=== PATIENT | male | born 1940 | race Caucasian/White ===

== ENCOUNTER → 2018-08-02 12:29 | Outpatient (CLI) | payer MEDICARE, OTHER, SELFPAY | PROVIDERS: Family Provider Family Medicine; PCP Family Medicine; Referring Provider Family Medicine; Visit Provider Family Medicine | DX: R55 Syncope and collapse (principal) | CPT/HCPCS: 93225; 93226 ==

== ENCOUNTER → 2018-08-14 13:52 | Outpatient (CLI) | payer MEDICARE, OTHER, SELFPAY ==
--- NOTE | 2018-08-14 13:54 | ECHOD_ITS ---
Reason For Study: syncope Procedure This was a 2D Doppler, Color Flow transthoracic echocardiogram. The exam was of adequate technical quality. Exam performed in department. Left Ventricle Normal LV size. Left ventricular systolic function is normal. The estimated ejection fraction is 65 %. No regional wall motion abnormalities noted. Right Ventricle Normal RV size. Normal systolic function. Atria Normal left atrium. Normal right atrium. No doppler evidence for ASD. Mitral Valve There is no mitral annular calcification. Normal mitral valve. Mild (1+) mitral valve insufficiency. Tricuspid Valve Normal tricuspid valve. Trivial tricuspid valve insufficiency. Right ventricular systolic pressure estimated to be 23 mmHg. Aortic Valve Trisinus/trileaflet aortic valve. Normal aortic valve. Pulmonic Valve The pulmonic valve is not well visualized. Trivial pulmonic valve insufficiency. Great Vessels Normal sized aortic root. Pericardium/Pleural No pericardial effusion. MMode/2D Measurements & Calculations LVIDd: 5.2 cm IVSd: 1.2 cm Ao root diam: 3.0 cm LVIDs: 3.0 cm LVPWd: 0.95 cm RVDd: 3.0 cm FS: 43.1 % LAV(MOD-bp): 38.3 ml LA A4 area: 14.1 cm2 LA dimension(2D): 4.1 cm LAV(MOD-bp) Indexed: 18.0 ml/m2 LAV(MOD-sp2): 41.4 ml LAV(MOD-sp4): 34.5 ml RA A4 area: 8.5 cm2 Doppler Measurements & Calculations MV E max florin: 87.2 cm/sec Lat Peak E' Florin: 7.2 cm/sec Med Peak E' Florin: 8.6 cm/sec MV A max florin: 68.9 cm/sec E/E' lat: 12.2 E/E' med: 10.1 MV E/A: 1.3 Ao V2 max: 151.6 cm/sec LV V1 max: 135.8 cm/sec TR max florin: 225.0 cm/sec Ao max P.2 mmHg LV V1 max P.4 mmHg TR max P.2 mmHg Interpretation Summary Left ventricular systolic function is normal. The estimated ejection fraction is 65 %. Mild (1+) mitral valve insufficiency. Trivial tricuspid valve insufficiency. Trivial pulmonic valve insufficiency. Right ventricular systolic pressure estimated to be 23 mmHg. Transmitral diastolic flow velocities suggest diastolic dysfunction (pseudonormal pattern). Ordering Physician: Yash Mahoney Referring Physician: Yash Mahoney Performed By: Caro Holcomb, RDCS, RVT
== END ==
PROVIDERS: Family Provider Family Medicine; PCP Family Medicine; Referring Provider Family Medicine; Visit Provider Family Medicine
DX: R55 Syncope and collapse (principal)
CPT/HCPCS: 93306

== ENCOUNTER → 2019-02-28 10:56 | Outpatient (CLI) | payer MEDICARE, OTHER, SELFPAY ==
[2019-02-28 11:55] LABS: T3 Total - Triiodothyronine 0.89 ng/mL (0.6-1.81)
[2019-02-28 11:58] LABS: T4 Total, Thyroxin 7.7 ug/dL (4.5-12.1)
== END ==
PROVIDERS: Family Provider Family Medicine; PCP Family Medicine; Referring Provider Family Medicine; Visit Provider Family Medicine
DX: E03.9 Hypothyroidism, unspecified (principal)
CPT/HCPCS: 36415; 84436; 84480

== ENCOUNTER → 2019-04-29 08:45 | Outpatient (CLI) | payer MEDICARE, OTHER, SELFPAY ==
[2019-04-25 10:52] VITALS: BMI 27.8
== END ==
PROVIDERS: Family Provider Family Medicine; PCP Family Medicine; Referring Provider Internal Medicine Cardiovascular Disease; Visit Provider Internal Medicine Cardiovascular Disease
DX: I48.0 Paroxysmal atrial fibrillation (principal); I49.8 Other specified cardiac arrhythmias
CPT/HCPCS: 93225; 93226

== ENCOUNTER → 2019-08-09 12:00 | Outpatient (CLI) | payer SELFPAY ==
[2019-07-31 10:49] VITALS: BMI 28.0
--- NOTE | 2019-08-09 12:07 | CT_ITS ---
STUDY: CARDIAC CALCIUM SCORING - CT CHEST REASON FOR EXAM: Male, 79 years old. CALCIUM SCORE-OVER READ ONLY RADIATION DOSAGE (If Supplied By Facility): CTDIvol = ( 12.19 ) mGy, DLP = ( 219.42 ) mGycm TECHNIQUE: Axial non-enhanced images were acquired through the heart for the sole purpose of measuring coronary artery calcium. Individualized dose optimization techniques were used for this CT. COMPARISON: None. FINDINGS: Please see the patient''s medical record for a personalized calcium score. The visualized soft tissues are within normal limits. The visualized lung monge are clear. CT/Limited Chest CT w/CCTA IMPRESSION: Please see the patient''s medical record for a personalized calcium score. Please go to: [email or web address] , for a description of the calculator. Electronically Signed: Jordon Escobar, at 14:03 EDT Tel , Service support ,
[2019-08-09 12:10] VITALS: BP 148/87; PULSE 82; RESP 16; O2SAT 96
[2019-08-09 12:44] VITALS: BP 124/60; PULSE 70; RESP 16; O2SAT 95; BMI 27.8
--- NOTE | 2019-08-09 15:59 | CA.SCORE ---
Calcium Scoring Date of Study:: 08/09/19 Coronary Calcium Scoring: High-resolution Computed Tomographic imaging of the chest was performed on [ ], with particular attention paid to the coronary arteries. Images from the examination were analyzed for the presence and extent of coronary artery calcification , using coronary calcium quantification software. The patient tolerated the procedure well and there were no complications. The results of the coronary calcification analysis are provided below. - Findings Left Main (LM): 118 Left Anterior Descending (LAD): 184 Left Circumflex (LCX): 112 Right Coronary Artery (RCA): 0 Total Agatston Score: 414 Percentile Rankin--50 Calcium Scoring Interpretation: 0 No identifiable atherosclerotic plaque. Very low cardiovascular disease risk. <5% chance of presence coronary artery disease A Negative Examination 1-10 Minimal Plaque burden. Significant coronary artery disease very unlikely. 11-100 Mild plaque burden. Likely mild or minimal coronary atherosclerosis. 101-400 Moderate plaque burden Moderate non-obstructive coronary artery disease highly likely. Over 400 Extensive plaque burden. High likelihood of at least one significant coronary stenosis (>50% diameter) Calcium Score: >400 High likelihood of at least one significant coronary stenosis - The above is suggestive of a high likelihood of at least 1 coronary artery with 50% stenosis. Other risk factors should be taking into consideration
== END ==
PROVIDERS: PCP Family Medicine; Referring Provider Internal Medicine Cardiovascular Disease; Visit Provider Internal Medicine Cardiovascular Disease
DX: I10 Essential (primary) hypertension (principal); E78.2 Mixed hyperlipidemia
CPT/HCPCS: 75571; 76380

== ENCOUNTER → 2019-08-12 12:16 | Outpatient (CLI) | payer MEDICARE, OTHER, SELFPAY ==
[2019-07-31 10:49] VITALS: BMI 28.0
[2019-08-09 12:44] VITALS: BMI 27.8
--- NOTE | 2019-08-12 12:17 | CDU_ITS ---
Reason For Study: Vertigo Rt. Velocities/BP Lt. Velocities/BP Prox CCA 118/24 cm/sec. Prox CCA 131/25 cm/sec. Mid CCA 96/27 cm/sec. Mid CCA 99/21 cm/sec. Dist CCA 88/23 cm/sec. Dist CCA 80/27 cm/sec. Prox ICA 47/10 cm/sec. Prox ICA 102/26 cm/sec. Mid ICA 47/17 cm/sec. Mid ICA 73/25 cm/sec. Dist ICA 79/31 cm/sec. Dist ICA 59/22 cm/sec. Rt. ICA/CCA = 0.8. Lt. ICA/CCA = 1.0. Prox ECA 94/10 cm/sec. Prox ECA 75/8 cm/sec. Rt. Vert. 33/12 cm/sec. Lt. Vert. 49/17 cm/sec. Right Extracranial There is intimal thickening but no significant atherosclerotic plaque noted in the right common carotid artery. There is heterogeneous, smooth atherosclerotic plaque noted in the right internal carotid artery. There is intimal thickening but no significant atherosclerotic plaque noted in the right external carotid artery. Antegrade flow is noted in the right vertebral artery. Left Extracranial There is intimal thickening but no significant atherosclerotic plaque noted in the left common carotid artery. There is heterogeneous, smooth atherosclerotic plaque noted in the left internal carotid artery. There is heterogeneous, irregular atherosclerotic plaque noted in the left external carotid artery. Antegrade flow is noted in the left vertebral artery. Procedure Carotid Duplex [id number]. Exam performed in department. Interpretation Summary No hemodynamically significant plaque or stenosis right extracranial internal carotid with less than 50% stenosis <50% stenosis right external carotid Minimal plaque at the proximal left internal carotid with less than 50% stenosis. <50% stenosis left external carotid Patent, antegrade vertebrals bilaterally Ordering Physician: Eugene Monson Referring Physician: Yash Mahoney Performed By: Viviane Loco, ISAIAS, RVT
--- NOTE | 2019-08-12 12:17 | STEWCON_ITS ---
Reason For Study: Chest Pain; Syncope; HTN Stress Results Protocol: Bull Protocol WITH DEFINITY Maximum Predicted HR: 141 bpm Target HR: 120 bpm % Maximum Predicted HR: 96 % DurationHeart Rate Stage (mm:ss) (bpm) BP Comment Baseline 64 138/76No Chest Pain; 4 ML Diluted Definity Bull Protocol Stage I 3:00 120 156/70No Chest Pain Bull Protocol Stage II 3:00 131 164/72No Chest Pain; Mild Dyspnea Bull Protocol Stage III 0:30 136 / No Chest Pain; Mild Dyspnea Recovery 80 128/80No Chest Pain Stress Duration: 6:30 mm:ss Maximum Stress HR: 136 bpm METS: 8 Baseline Echocardiogram Findings Stress Echo Wall motion Data Resting WM Intermediate WM Stress WM Interpretation Summary Stress echo Resting EKG demonstrates normal sinus rhythm with a rate of 63 bpm normal intervals are noted resting blood pressure is 138/76 mmHg. The patient exercised according to regular Bull protocol for a total duration of 6 minutes and 30 seconds. The maximum heart rate attained was 137 bpm which was 97% of maximum predicted heart rate the maximum workload was 8.5 metabolic equivalents. At rest there were no ST or T wave changes noted to suggest ischemia at peak exercise upsloping ST changes only were noted with no meet the criteria for ischemia. The test was terminated due to the target heart rate being achieved. No clinical angina was noted. The resting blood pressure was 138/76 with a peak blood pressure 164/72. Stress echocardiogram. Stress echocardiographic images were obtained with and without Definity enhancement. There was thickening of all ayala and reduction in low ventricular cavity size. The ejection fraction at rest was 60% peaking at 70%. No wall motion abnormalities were noted to suggest ischemia. Conclusion: Normal exercise stress echo at a high workload Good functional capacity. No arrhythmias noted. Ordering Physician: Eugene Monson Referring Physician: Yash Mahoney Performed By: Norah Mckinney RDCS
== END ==
PROVIDERS: PCP Family Medicine; Referring Provider Internal Medicine Cardiovascular Disease; Visit Provider Internal Medicine Cardiovascular Disease
DX: R07.9 Chest pain, unspecified (principal); I10 Essential (primary) hypertension; R55 Syncope and collapse
CPT/HCPCS: 93017; 93350; 93880; Q9957; A4216; C8928

== ENCOUNTER → 2020-01-20 14:04 | Outpatient (CLI) | payer MEDICARE, OTHER, SELFPAY ==
[2019-08-09 12:44] VITALS: BMI 27.8
[2020-01-20 15:44] LABS: T3 Total - Triiodothyronine 1.24 ng/mL (0.6-1.81)
[2020-01-20 15:51] LABS: T4 Total, Thyroxin 10.5 ug/dL (4.5-12.1)
== END ==
PROVIDERS: PCP Family Medicine; Visit Provider Family Medicine
DX: E03.9 Hypothyroidism, unspecified (principal)
CPT/HCPCS: 36415; 84436; 84443; 84480

== ENCOUNTER → 2020-03-16 11:36 | Outpatient (CLI) | payer MEDICARE, OTHER, SELFPAY ==
[2020-02-06 08:06] VITALS: BMI 29.1
--- NOTE | 2020-03-16 | IMM_PTH ---
PATIENT: NICOLLE KWOK LOC: [facility] U#:[id number] AGE/SX: 84/M ROOM: RE03/16/[address]: Dr. Rob Terry MD : 1940 BED: DIS: SPEC #: [id number] RECD: 03/17/20 13:27 STATUS: BENJAMIN REKehinde #: [id number] QUETA: 03/16/20 00:[address]: Rob Terry DEPT: IMMUNOHISTOCHEMISTRY RECD BY: Martina Albert ENTERED: 03/17/20 13:29 SP TYPE: IMMUNO OTHR DR: Dr. Yash Mahoney DO Tissues: B - PROSTATE RIGHT D - PROSTATE LEFT E - PROSTATE LEFT Procedures: 34BE12 (add) P40 (add) 34BE12 (initial) PHYSICIAN & INSTITUTION [place] [id number] SPECIMEN INFORMATION: Tissue Source: B - Right prostate, mid, core biopsy, D - Left prostate, apex, E - Left prostate, mid Clinical Info: Elevated PSA Specimen Number: [id number] B, D & E CPT code: 00506, 81124 x5 METHODOLOGY: Deparaffinized sections of prefer/formalin-fixed tissue or PAP/DQ stained slides are incubated with monoclonal/polyclonal antibodies/oligonucleotide probes. Localization is made via biotin free immunoperoxidase method. Appropriate controls are performed and reacted as expected. Results on target cell population are indicated in the following table: RESULTS: ANTIBODY / CLONE RESULT Block B 34BE12 (34BE12) negative P40 (BC28) negative Block D 34BE12 (34BE12) negative P40 (BC28) negative Block E 34BE12 (34BE12) negative P40 (BC28) negative These tests were developed and their performance characteristics determined by [facility]. They may not have been cleared or approved by the U.S. Food and Drug Administration. The FDA has determined that such clearance or approval is not necessary. The above immunohistochemical/dualISH markers are ordered and reviewed by the Pathologist. INTERPRETATION: B. Right prostate, mid, core biopsy: Adenocarcinoma. D. Left prostate, apex, core biopsy: Adenocarcinoma. E. Left prostate, mid, core biopsy: Adenocarcinoma. AM:sandra 03/18/20
--- NOTE | 2020-03-16 08:00 | PROSBIL_PTH ---
PATIENT: NICOLLE KWOK LOC: [facility] U#:[id number] AGE/SX: 84/M ROOM: RE03/16/[address]: Dr. Rob Terry MD : 1940 BED: DIS: SPEC #: [id number] RECD: 03/16/20 11:11 STATUS: BENJAMIN PATRICIA #: [id number] QUETA: 03/16/20 08:[address]: Rob Terry DEPT: SURGICAL PATHOLOGY RECD BY: Liborio Kapoor ENTERED: 03/16/20 11:47 SP TYPE: PROST BX ALANIS DR: Dr. Yash Mahoney DO Tissues: A - PROSTATE RIGHT B - PROSTATE RIGHT C - PROSTATE RIGHT D - PROSTATE LEFT E - PROSTATE LEFT F - PROSTATE LEFT Procedures: PROSTATE BX HEADER OPERATION: Prostate biopsy PRE-OP DIAGNOSIS: Elevated PSA TISSUE SUBMITTED: A - Right apex, B - Right mid, C - Right base, D - Left apex, E - Left mid, F - Left base MICROSCOPIC DIAGNOSIS A. Right prostate, apex, core biopsy: Adenocarcinoma. [place] grade: 6 (3+3) Cores involved: 2 out of 2 Tissue involved: 45% Greatest tumor length: 4.5mm B. Right prostate, mid, core biopsy: Adenocarcinoma. Tori grade: 6 (3+3) Cores involved: 1 out of 2 Tissue involved: <1% Greatest tumor length: 0.1 mm Perineural invasion: Present See comment. C. Right prostate, base, core biopsy: Adenocarcinoma. Tori grade: 7 (3+4) Cores involved: 2 out of 2 Tissue involved: 25% Greatest tumor length: 2 mm D. Left prostate, apex, core biopsy: Adenocarcinoma. [place] grade: 6 (3+3) Cores involved: 1 out of 1 Tissue involved: <1% Greatest tumor length: 0.2 mm See comment. E. Left prostate, mid, core biopsy: Adenocarcinoma. [place] grade: 6 (3+3) Cores involved: 1 out of 2 Tissue involved: <1% Greatest tumor length: 0.2 mm See comment. F. Left prostate, base, core biopsy: Adenocarcinoma. [place] grade: 8 (5+3) Cores involved: 2 out of 2 Tissue involved: 40% Greatest tumor length: 2 mm AM:sandra 03/17/20 COMMENT B, D & E - Immunohistochemistry ([id number]) supports the above diagnosis. Case has been reviewed in consultation with Dr. Hernandez who concurs with the above diagnosis. IDC:SJ MICROSCOPIC DESCRIPTION Slides are reviewed. GROSS DESCRIPTION A - Received is one container designated prostate, right apex. The specimen consists of two elongated fragments of light rachel-white soft tissue each measuring 0.5 cm in length and 0.1 cm in diameter. The specimen is totally submitted in one cassette. B - Received is one container designated prostate, right mid. The specimen consists of three elongated fragments of light rachel-white soft tissue measuring 0.3 to 1.5 cm in length and 0.1 cm in diameter. The specimen is totally submitted in one cassette. C - Received is one container designated prostate, right base. The specimen consists of two elongated fragments of light rachel-white soft tissue measuring 0.7 and 0.9 cm in length and 0.1 cm in diameter. The specimen is totally submitted in one cassette. D - Received is one container designated prostate, left apex. The specimen consists of one elongated fragment of light rachel-white soft tissue measuring 0.6 cm in length and 0.1 cm in diameter. The specimen is totally submitted in one cassette. E - Received is one container designated prostate, left mid. The specimen consists of two elongated fragments of light rachel-white soft tissue each measuring 0.3 cm in length and 0.1 cm in diameter. The specimen is totally submitted in one cassette. F - Received is one container designated prostate, left base. The specimen consists of two elongated fragments of light rachel-white soft tissue each measuring 0.5 cm in length and 0.1 cm in diameter. The specimen is totally submitted in one cassette. / JAQUELINE:sandra 03/16/20 TC:0 CPT: G0146
== END ==
PROVIDERS: PCP Family Medicine; Visit Provider Urology
DX: C61 Malignant neoplasm of prostate (principal); R97.20 Elevated prostate specific antigen [PSA]
CPT/HCPCS: 88305; 88341; 88342; G0416

== ENCOUNTER → 2020-04-06 08:53 | Outpatient (CLI) | payer MEDICARE, OTHER, SELFPAY ==
[2020-02-06 08:06] VITALS: BMI 29.1
--- NOTE | 2020-04-06 08:55 | NM_ITS ---
CLINICAL: 79-year-old male with apparent history of primary prostate carcinoma. WHOLE BODY 99m Tc MDP RADIONUCLIDE BONE SCINTIGRAPHY COMPARISON: None available FINDINGS: Following the intravenous administration of 26.0 mCi of 99m Tc MDP, whole body bone images reveal: 1. An increase in radiopharmaceutical concentration is identified in the left mid, distal humeral diaphysis and distal left humeral metaphysis. 2. Increased tracer concentration is defined in the acromioclavicular compartments of both shoulders, lateral femoral compartments of both knees, medial tibial compartment of the right knee, bilateral wrist articulations, the right ankle, first sacral segment posteriorly on the right, posterior midline sacrum. 3. The remaining skeletal structures are scintigraphically unremarkable with normal-appearing renal images and urinary bladder activity identified. An asymmetric increase in tracer concentration is defined in the right maxilla most consistent with periodontal disease. NM/Bone Scan Whole Body IMPRESSION: 1. The increase in radiopharmaceutical concentration demonstrated in the left mid and distal humeral diaphysis and distal left humeral metaphysis warrants further investigation with plain film radiography in the setting of carcinoma of the prostate. 2. 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 Electronically Signed: Gerardo Richardson DO at 22:42 EST Tel , Service support ,
== END ==
PROVIDERS: PCP Family Medicine; Referring Provider Urology; Visit Provider Urology
DX: C61 Malignant neoplasm of prostate (principal)
CPT/HCPCS: 78306

== ENCOUNTER 2020-04-08 06:19 | Day surgery (SDC) | payer MEDICARE, OTHER, SELFPAY ==
[2020-02-06 08:06] VITALS: BMI 29.1
[2020-04-08 06:51] VITALS: BP 127/76; PULSE 72; RESP 16; TEMP 36.4; O2SAT 97; BMI 29.2
[2020-04-08] MEDS: Cefazolin 2 GM in 0.9% Normal Saline 100 ML IV (08:22)
--- NOTE | 2020-04-08 08:37 | PCM.HP.STD ---
History of Present Illness Date of Admission: 04/08/20 Chief Complaint: Prostate cancer The patient is a 79 year old male with a history of prostate cancer he is elected to undergo radiation therapy today we can place gold markers in the prostate and spacer organ at risk gel matrix Past Medical History Past Medical History (Chronic Problems): Chronic Problems (Last Reviewed 04/25/19 @ 11:[address] Eugene Monson MD) Hyperlipemia, mixed (Chronic) Essential (primary) hypertension (Chronic) Syncope (Chronic 03/2019) Sinus pause (Chronic) Bradyarrhythmia (Chronic) Non-sustained ventricular tachycardia (Chronic) Paroxysmal atrial fibrillation (Chronic) Medical History: Medical History (Last Reviewed 04/25/19 @ 11:[address] Eugene Monson MD) Hyperlipemia, mixed (Chronic) E78.2 Essential (primary) hypertension (Chronic) I10 Syncope (Chronic) Onset Date: 03/2019 R55 Sinus pause (Chronic) I45.5 Bradyarrhythmia (Chronic) I49.8 Non-sustained ventricular tachycardia (Chronic) I47.2 Paroxysmal atrial fibrillation (Chronic) I48.0 BPH (benign prostatic hyperplasia) N40.0 Basal cell carcinoma C44.91 Dupuytren contracture M72.0 GERD (gastroesophageal reflux disease) K21.9 Hypothyroidism E03.9 Epistaxis R04.0 xarelto Allergies cephalexin Adverse Reaction (Verified 04/08/20 06:50) diarrhea niacin Adverse Reaction (Verified 04/08/20 06:50) PT UNSURE OF REACTION sore muscles Home Medications: Ambulatory Orders Medication Instructions Recorded levothyroxine 75 mcg capsule 100 mcg PO DAILY 04/24/19 simvastatin 20 mg tablet 20 mg PO QHS 04/24/19 omeprazole 20 mg capsule,delayed 40 mg PO DAILY 04/25/19 release Apixaban [Eliquis] 5 mg PO BID 04/02/20 Hydrochlorothiazide [Hctz] 25 mg PO DAILY 04/02/20 Lisinopril 20 mg PO DAILY 04/02/20 Surgical History: Surgical History (Last Reviewed 04/25/19 @ 11:[address] Eugene Monson MD) H/O blepharoplasty Z98.890 H/O hemorrhoidectomy Z98.890 H/O knee surgery Z98.890 H/O umbilical hernia repair Z98.890, Z87.19 History of cataract surgery Z98.49 History of cholecystectomy Z90.49 History of ventral hernia repair Z98.890, Z87.19 S/P cystourethroscopy with dilation of urethral stricture Z98.890 Surgical History: no surgical history Smoking Status: Former smoker Review of Systems Constitutional: Denies: Chills, Fever, Weight Change HEENT: Denies: Head Aches, Sinus Congestion, Sinus Drainage Cardiovascular: Denies: Chest Pain, Palpitations Respiratory: Denies: Cough, Shortness of breath at rest, Sputum production Gastrointestinal: Denies: Abdominal Pain, Nausea, Vomiting Genitourinary: Denies: Dysuria Musculoskeletal: Denies: Joint Pain, Joint Tenderness Skin: Denies: Rash, Wounds Neurological: Denies: Numbness, Tingling, Focal weakness Psychiatric: Denies: Anxiety, Depression, Homicidal Ideations, Suicidal Ideations Hematologic/ Lymphatic: Denies: Easy Bruising, Easy Bleeding VTE Information - Inpt Only VTE Present on Admission: No - Physical Exam Vitals/I&O's: Vital Signs Temp Pulse Resp BP Pulse Ox 97.6 F L 72 16 127/76 H 97 04/08/20 06:51 04/08/20 06:51 04/08/20 06:51 04/08/20 06:51 04/08/20 06:51 Oxygen Delivery Method Room Air Weight: 94.9 kg Body Mass Index (BMI) 29.2 Intake and Output for Last 24 Hours 04/06/20 04/07/20 04/08/20 23:59 23:59 23:59 Intake Total 110 / 110 Balance 110 / 110 General: Alert, Oriented x3, Cooperative HEENT: Atraumatic, PERRLA, EOMI, Normocephalic Neck: Supple, No JVD, Negative Carotid Bruits Lungs: Clear to auscultation, Normal air movement Cardiovascular: Regular rate, No murmurs Abdomen: Bowel Sounds Present, Soft, Non Tender Extremities: No edema, Capillary Refill Less than 3 Seconds Skin: No rashes, No breakdown Musculoskeletal: No Tenderness to Palpation of Joints or Extremities Neurological: Cranial nerves II-XII grossly intact Psych/Mental Status: Normal Affect, Appropriate Microbiology Past 72 Hours 04/07/20 15:20 Interface Orders SARS-CoV-2 Antigen (Rapid) - Final Current Medications Cefazolin Sodium 2 gm/ Sodium (Chloride) 110 mls @ 150 mls/hr IV PREOP ONE Stop: 04/08/20 11:53 Last Infusion: 04/08/20 08:27 Dose: Infused Documented by: Assessment/Plan Plan to place spacer organ at risk gel matrix and gold markers
--- NOTE | 2020-04-08 08:39 | DCINST_ITS ---
Discharge Diet: No Restrictions Discharge Activity: Return to Normal Activity, May Not Drive - for 2 days. Allergies/Adverse Reactions: Allergies cephalexin Adverse Reaction (Verified 04/08/20 06:50) diarrhea niacin Adverse Reaction (Verified 04/08/20 06:50) PT UNSURE OF REACTION sore muscles Medications to take at Discharge levothyroxine 75 mcg capsule 100 mcg PO DAILY 04/24/19 simvastatin 20 mg tablet 20 mg PO QHS 04/24/19 omeprazole 20 mg capsule,delayed release 40 mg PO DAILY 04/25/19 Apixaban [Eliquis] 5 mg PO BID 04/02/20 Hydrochlorothiazide [Hctz] 25 mg PO DAILY 04/02/20 Lisinopril 20 mg PO DAILY 04/02/20 Primary Care Physician: Yash Mahoney DO [Primary Care Provider] - Test Results: Test results from this visit will be discussed in further detail at your follow- up appointment, if applicable. Please Follow Up With: Rob Terry MD When: please call to make an appointment-for hormone therapy shot
--- NOTE | 2020-04-08 08:40 | PCM.OPRPT ---
Report of Operation Date of Procedure: 04/08/20 Pre-Operative Diagnosis: Prostate cancer Post-Operative Diagnosis: Same Surgery/Procedure Performed:: Transrectal ultrasound-guided placement of gold fiducial markers and transrectal ultrasound-guided placement of spacer organ at risk gel matrix Description of Surgical Findings:: The gentleman has prostate cancer is elected undergo radiation treatment. He has high-grade cancer. He is going start hormone therapy. Were also going put gold markers in the prostate for localization of radiation treatment and we can place a spacer gel to separate the rectum off the prostate. Patient was taken back to the operating room at the smooth induction of general anesthesia he was placed in dorsolithotomy position the urethra testicles and perineum were prepped and draped in usual sterile fashion. I then introduced a biplanar probe into the prostate and rectum performed ultrasonography of the prostate identified the prostate the rectum the Denonvilliers' fascia the prostate base mid and apex and seminal vesicles. After performing ultrasonography of the prostate I then introduced gold fiducial markers in the prostate placed 3 gold fiducial markers in [address] in the prostate at the right base left base and right apex. Then the spacer organ at risk gel matrix were prepared in the back table per power house control room operator's instructions. Then using bevel needle down I advanced the needle in the midline below the prostate and above the rectum once I entered the space of Denonvilliers' fascia I then hydrodissected the space with normal saline injectable. Once the space was identified and confirmed then I injected the gel matrix into the space to separate the rectum off the prostate the very nicely. The needle was removed the patient perineum was cleaned taken out of stirrups extubated taken back to PACU in good condition and he will follow up in the office for treatment with hormone therapy shots. Type of Anesthesia:: General - Admit VTE Documentation VTE Present on Admission: No VTE Mechan Device Prophylaxis: SCD's
[2020-04-08 08:47] VITALS: BP 115/70; BP 127/76; PULSE 68; RESP 16; TEMP 36.1; O2SAT 94
[2020-04-08 08:59] VITALS: BP 110/70; BP 127/76; PULSE 68; RESP 16; O2SAT 96
[2020-04-08 09:20] VITALS: BP 109/74; BP 127/76; PULSE 64; RESP 16; O2SAT 94
[2020-04-08 09:23] VITALS: BP 126/75; BP 127/76; PULSE 63; RESP 16; TEMP 36.1; O2SAT 95
[2020-04-08 09:57] VITALS: BP 122/69; BP 127/76; PULSE 16; RESP 16; TEMP 36.3; O2SAT 59
--- NOTE | 2020-04-08 10:21 | RAD_ITS ---
STUDY: X-RAY - LEFT HUMERUS REASON FOR EXAM: Male, 79 years old. follow up for bone scan, hx of prostate cancer TECHNIQUE: 2 view(s) of the humerus. COMPARISON: Bone scan 04/06/2020. FINDINGS: Normal visualized humerus. There is no demonstrated fracture or osseous destructive process. There is no demonstrated soft tissue abnormality. RAD/Humerus min 2 Views IMPRESSION: There is no specific abnormality of the humerus. However the bone scan is very suspicious in this negative exam does not exclude metastatic disease. Electronically Signed: Ray Matamoros MD at 0:01 EST , Service support ,
== END 2020-04-08 10:00 | disposition home or self-care (01) ==
LOC: SDC 06:20 → AC 06:21
PROVIDERS: PCP Family Medicine; Referring Provider Urology; Visit Provider Urology
PROC: (CPT 55874; principal; 2020-04-08 08:05)
DX: C61 Malignant neoplasm of prostate (principal); E03.9 Hypothyroidism, unspecified; E78.2 Mixed hyperlipidemia; I10 Essential (primary) hypertension; I48.0 Paroxysmal atrial fibrillation; K21.9 Gastro-esophageal reflux disease without esophagitis; N40.0 Benign prostatic hyperplasia without lower urinary tract symptoms; Z79.01 Long term (current) use of anticoagulants; Z85.828 Personal history of other malignant neoplasm of skin; Z88.1 Allergy status to other antibiotic agents; I47.2 Ventricular tachycardia
CPT/HCPCS: 00902; 55875; 55876; 73060; 87426; J7120; J2405

== ENCOUNTER → 2020-04-29 10:47 | Outpatient (CLI) | payer MEDICARE, OTHER, SELFPAY ==
[2020-04-08 06:51] VITALS: BMI 29.2
[2020-04-29 12:14] LABS: Absolute Lymphocyte Count 2.44 X10^3/uL (0.83-4.51); Absolute Neutrophil Count 2.6 X10^3/uL (2.0-7.7); Basophil# 0.06 X10^3/uL; Eosinophil# 0.25 X10^3/uL; Hematocrit 43.9 % (40-54); Hemoglobin 14.3 g/dL (13.0-16.5); Lymphocyte # 2.44 X10^3/ul (4.0); Lymphocyte % 38.9 % (19-41); Mean Corp Hgb Conc 32.6 g/dL (32-36); Mean Corpuscular Hgb 30.9 pg (27.0-32.0); Mean Corpuscular Volume 94.8 fL (80-94); Mean Platelet Vol. 11.3 fl (6.2-12.0); Monocyte# 0.94 X10^3/uL; NRBC Flagged by Analyzer 0 % (0-5); Neutrophil # 2.57 X10^3/uL (2.7-7.7); Neutrophil % 40.9 % (47-70); Platelet Count 241 K/mm3 (150-450); RBC Distribution Width CV 13.9 % (11.6-14.6); RBC Distribution Width SD 48.1 fl (35.1-43.9); Red Blood Count 4.63 M/mm3 (4.6-6.2); White Blood Count 6.3 K/mm3 (4.4-11.0)
[2020-04-29 12:47] LABS: Creatinine, Serum 1.52 mg/dL (0.70-1.30); EST Glomerular Filtration Rate 47 mL/min (>60); Est Glom Filt Rate - Afr Amer 57 mL/min (>60); PSA,Total- Diagnostic 8.33 ng/mL (0.0-4.0)
== END ==
PROVIDERS: PCP Family Medicine; Referring Provider Radiology Radiation Oncology; Visit Provider Radiology Radiation Oncology
DX: Z01.818 Encounter for other preprocedural examination (principal); C61 Malignant neoplasm of prostate
CPT/HCPCS: 36415; 82565; 84153; 85025

== ENCOUNTER → 2020-04-30 13:49 | Outpatient (CLI) | payer MEDICARE, OTHER, SELFPAY ==
[2020-04-08 06:51] VITALS: BMI 29.2
--- NOTE | 2020-04-30 14:02 | CT_ITS ---
STUDY: CT PELVIS WITH CONTRAST REASON FOR EXAM: Male, 79 years old. PROSTATE CANCER PLANNING RADIATION DOSAGE (If Supplied By Facility): CTDIvol = ( 24.62 ) mGy, DLP = ( 757.99 ) mGycm TECHNIQUE: Transaxial imaging of the pelvis was performed without oral contrast. Oral and amp;amp; IV READII-CAT and amp;amp; 100ML ISOVUE 300 was administered intravenously. Individualized dose optimization techniques were used for this CT. COMPARISON: None. FINDINGS: Normal urinary bladder. There is prostatic enlargement. It measures 5 cm x 4.6 cm. This causes indentation at the bladder base. I cannot rule out involvement of the bladder base. 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 Enlargement of the seminal vesicles. Normal visualized small intestine. Normal visualized colon. There is no pelvic fluid. There is no pelvic lymphadenopathy or mass lesion. There is diffuse atherosclerotic calcification of the pelvic arteries. Normal abdominal wall. There are diffuse degenerative changes of the visualized lumbar spine. CT/CT Pelvis W/CONT Therapy IMPRESSION: Prostatic enlargement with indentation at the bladder base. I cannot exclude involvement. Radiation seeds are seen within the prostate. The urethra is unremarkable. Electronically Signed: Denny Arellano, at 14:47 EST , Service support ,
== END ==
PROVIDERS: PCP Family Medicine; Referring Provider Radiology Radiation Oncology; Visit Provider Radiology Radiation Oncology
DX: C61 Malignant neoplasm of prostate (principal)
CPT/HCPCS: 51600; 72193; Q9967

== ENCOUNTER → 2020-05-19 16:38 | Outpatient (CLI) | payer MEDICARE, OTHER, SELFPAY | PROVIDERS: PCP Family Medicine; Visit Provider Nurse Practitioner Adult Health | DX: R30.0 Dysuria (principal) | CPT/HCPCS: 87086 ==

== ENCOUNTER → 2020-06-02 13:23 | Outpatient (CLI) | payer MEDICARE, OTHER, SELFPAY ==
[2020-06-02 15:39] LABS: Absolute Lymphocyte Count 0.74 X10^3/uL (0.83-4.51); Absolute Neutrophil Count 2.5 X10^3/uL (2.0-7.7); Basophil# 0.03 X10^3/uL; Basophil% 0.7 % (0-1); Eosinophil# 0.24 X10^3/uL; Eosinophils% 5.9 % (0-5); Hematocrit 39.6 % (40-54); Hemoglobin 12.5 g/dL (13.0-16.5); Lymphocyte # 0.74 X10^3/ul (4.0); Lymphocyte % 18.1 % (19-41); Mean Corp Hgb Conc 31.6 g/dL (32-36); Mean Corpuscular Hgb 29.5 pg (27.0-32.0); Mean Corpuscular Volume 93.4 fL (80-94); Mean Platelet Vol. 10.5 fl (6.2-12.0); Monocyte# 0.59 X10^3/uL; Monocyte% 14.4 % (0-10); NRBC Flagged by Analyzer 0 % (0-5); Neutrophil # 2.48 X10^3/uL (2.7-7.7); Neutrophil % 60.7 % (47-70); Platelet Count 211 K/mm3 (150-450); RBC Distribution Width SD 44.8 fl (35.1-43.9); Red Blood Count 4.24 M/mm3 (4.6-6.2); White Blood Count 4.1 K/mm3 (4.4-11.0)
== END ==
PROVIDERS: PCP Family Medicine; Referring Provider Radiology Radiation Oncology; Visit Provider Radiology Radiation Oncology
DX: C61 Malignant neoplasm of prostate (principal)
CPT/HCPCS: 36415; 85025

== ENCOUNTER → 2020-06-22 14:20 | Outpatient (CLI) | payer MEDICARE, OTHER, SELFPAY ==
[2020-06-22 15:23] LABS: Absolute Lymphocyte Count 0.51 X10^3/uL (0.83-4.51); Basophil# 0.04 X10^3/uL; Basophil% 1.1 % (0-1); Eosinophil# 0.38 X10^3/uL; Eosinophils% 10.8 % (0-5); Hematocrit 34.3 % (40-54); Hemoglobin 11.5 g/dL (13.0-16.5); Lymphocyte # 0.51 X10^3/ul (4.0); Lymphocyte % 14.5 % (19-41); Mean Corp Hgb Conc 33.5 g/dL (32-36); Mean Corpuscular Hgb 31.8 pg (27.0-32.0); Mean Corpuscular Volume 94.8 fL (80-94); Mean Platelet Vol. 10.6 fl (6.2-12.0); Monocyte# 0.55 X10^3/uL; Monocyte% 15.6 % (0-10); NRBC Flagged by Analyzer 0 % (0-5); Neutrophil # 2.02 X10^3/uL (2.7-7.7); Neutrophil % 57.4 % (47-70); POSITIVE DIFFERENTIAL YES; Platelet Count 148 K/mm3 (150-450); RBC Distribution Width CV 14.3 % (11.6-14.6); Red Blood Count 3.62 M/mm3 (4.6-6.2); White Blood Count 3.5 K/mm3 (4.4-11.0)
[2020-06-22 15:25] LABS: Differential Indicated SCAN CRITERIA MET
[2020-06-22 16:08] LABS: Differential Comment SCANNED
[2020-06-23 13:26] LABS: Pathologist Review Reviewed
== END ==
PROVIDERS: PCP Family Medicine; Visit Provider Radiology Radiation Oncology
DX: C61 Malignant neoplasm of prostate (principal)
CPT/HCPCS: 36415; 85025

== ENCOUNTER 2020-07-03 10:27 | Outpatient (RCR) | payer MEDICARE, OTHER, SELFPAY | END 2020-07-03 23:59 | LOC: IMMUN 10:27 | PROVIDERS: PCP Family Medicine; Visit Provider Family Medicine | DX: Z23 Encounter for immunization (principal) | CPT/HCPCS: 0011A; 0012A ==

== ENCOUNTER → 2020-07-31 08:24 | Outpatient (CLI) | payer MEDICARE, OTHER, SELFPAY ==
[2020-07-31 09:59] LABS: PSA,Total- Diagnostic 0.14 ng/mL (0.0-4.0)
== END ==
PROVIDERS: PCP Family Medicine; Referring Provider Urology; Visit Provider Urology
DX: C61 Malignant neoplasm of prostate (principal)
CPT/HCPCS: 36415; 84153

== ENCOUNTER 2020-09-07 20:08 | Inpatient (IN) | payer MEDICARE, OTHER, SELFPAY ==
[2020-09-07 20:09] VITALS: BP 132/72; PULSE 79; RESP 18; TEMP 36.4; O2SAT 96; BMI 30.1
--- NOTE | 2020-09-07 20:22 | CT_ITS ---
INDICATION: pancreatitis EXAMINATION: CT Abdomen And Pelvis W/ Contrast Injection TECHNIQUE: Helically acquired images were obtained of the abdomen and pelvis after IV contrast. A radiation dose optimization technique was used for this scan. IV Contrast dosage and agent: 75 cc ISOVUE-370 Oral contrast: None. COMPARISON: 04/30/2020. FINDINGS: Visualized lung bases: Bibasilar atelectasis. Liver: Unremarkable Gallbladder: Surgically absent. Spleen: Unremarkable Pancreas: There is peripancreatic fat stranding. There is a 1 cm cystic lesion in the body of the pancreas with peripheral calcification. No dilatation of the main pancreatic duct. Adrenal Glands: Unremarkable Kidneys: Unremarkable Vasculature: Severe aortoiliac atherosclerotic calcifications. GI Tract: Unremarkable Lymphadenopathy: None Peritoneum: No ascites. Bladder: Unremarkable Reproductive organs: Prostatic radiation beads. Bones/Soft tissues: Diffuse degenerative changes of the lumbar spine. CT/Abdomen/Pelvis W IV Cont ONLY IMPRESSION: Acute interstitial edematous pancreatitis. 1 cm cystic lesion in the body of the pancreas with peripheral calcification could represent a pseudocyst versus cystic neoplasm. Recommend follow-up MRI in 2 years. Electronically Signed: Bud Ríos MD at 21:45 EDT Tel , Service support ,
--- NOTE | 2020-09-07 20:28 | ED.VIS.GEN ---
History of Present Illness Chief Complaint: Abd Pain Informant: Patient Onset: Today Context: Gradual Onset Timing: Continuous Current Severity: Moderate Maximum Severity: Moderate Narrative: The patient is an 80-year-old male with medical history significant for atrial fibrillation on Eliquis, hypertension, hyperlipidemia, and history of pancreatitis who presents to the emergency department abdominal pain, nausea, and vomiting. Patient states that earlier today, he just not feel well. He states he just felt some generalized malaise. About an hour and a half prior to arrival, he began to have abdominal pain in his midepigastric area to his right upper quadrant. He had 2 episodes of nonbloody, nonbilious emesis. Patient has had 2 prior episodes of pancreatitis. He denies any fevers or chills. He does admit to some malaise. Patient does have history of prior hernia repair and cholecystectomy. He states he is otherwise been in his normal state of health. Prior similar symptoms: Yes Recent Illness/Hospitalization: No Past Medical History - Allergies and Home Meds Allergies/Adverse Reactions: Allergies cephalexin Adverse Reaction (Verified 09/07/20 20:11) diarrhea niacin Adverse Reaction (Verified 09/07/20 20:11) PT UNSURE OF REACTION sore muscles Primary Care Physician: Yash Mahoney DO [Primary Care Provider] - Prior records reviewed: Yes Past Medical History: None - Atrial fibrillation, hypertension, hyperlipidemia Surgical History: cholecystectomy, herniorrhaphy Smoking Status: Former smoker Review of Systems General: Denies: Chills, Fever, Sweats Eyes: Denies: Visual changes - bilaterally, Diplopia ENT: Denies: Rhinorrhea, Sore throat Cardiovascular: Denies: Chest pain, Palpitations Respiratory: Denies: Dyspnea, Cough, Dyspnea on exertion Gastrointestinal: Reports: Abdominal pain, Nausea. Denies: Vomiting, Diarrhea, Melena, Hematochezia Genitourinary: Denies: Dysuria, Hematuria, Frequency Musculoskeletal: Denies: Back pain, Extremity Pain Skin: Denies: Rash, Wounds Neurological: Denies: Headache, Weakness, Numbness Physical Exam Vital Signs/Narrative: Vital Signs Temp Pulse Resp BP Pulse Ox 09/07/20 20:09 97.6 F L 79 18 132/72 H 96 Inital Vital Signs reviewed: Yes General: Well nourished, Well developed, No Acute Distress Head: Normocephalic, Atraumatic Eyes: Perrl, EOMI ENT: Moist mucous membranes, No rhinorrhea Neck: Supple, Nontender Cardiovascular: Regular rate, Regular rhythm, No murmurs Respiratory: No distress, CTA bilaterally, Chest nontender Abdomen: Soft, Nondistended, Normal bowel sounds, Tender. Negative for: Guarding, Rebound tenderness Back: Nontender, Normal Inspection Extremities: Nontender, No edema Skin: Normal color, No rash Neurological: Alert, Oriented x3, Cranial nerves II-XII grossly intact, Normal Strength, Normal Sensation Psychological: Normal affect, Normal Mood Diagnostic/Tx/Re-eval Clinical Impression(s) from Imaging Studies Abdomen/Pelvis CT 09/07/20 20:22 IMPRESSION: Acute interstitial edematous pancreatitis. 1 cm cystic lesion in the body of the pancreas with peripheral calcification could represent a pseudocyst versus cystic neoplasm. Recommend follow-up MRI in 2 years. Electronically Signed: Bud Ríos MD at 21:45 EDT Tel , Service support , Abnormal Lab Results 09/07/20 09/07/20 09/07/20 20:23 20:23 20:36 WBC 9.4 RBC 4.11 L Hgb 12.6 L Hct 39.0 L MCV 94.9 H MCH 30.7 MCHC 32.3 RDW Std Deviation 46.5 H RDW Coeff of Ksenia 13.3 Plt Count 223 MPV 10.0 Immature Gran % (Auto) 0.200 Neut % (Auto) 55.3 Lymph % (Auto) 33.3 [place] % (Auto) 9.3 Eos % (Auto) 1.5 Baso % (Auto) 0.4 Absolute Neuts (auto) 5.2 Absolute Lymphs (auto) 3.14 Nucleated RBC % 0 Sodium 140 Potassium 3.5 Chloride 102 Carbon Dioxide 31.0 Anion Gap 7 BUN 27 H Creatinine 1.73 H Estim Creat Clear Calc 35.16 Est GFR (MDRD) Af Amer 49 L Est GFR (MDRD) Non-Af 41 L BUN/Creatinine Ratio 15.6 Glucose 145 H Lactic Acid 1.6 Calcium 8.8 Total Bilirubin 0.90 AST 36 ALT 45 Alkaline Phosphatase 76 Troponin I < 0.015 Total Protein 7.1 Albumin 3.9 Globulin 3.2 Albumin/Globulin Ratio 1.2 Lipase > 09562 H - Rhythm Strip Rhythm Strip: Sinus Rhythm Rate: 80 Ectopy: None - Medical Decision Making Patient presents with generalized malaise and rather significant abdominal pain. 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 IV was established. Patient was given fluids and analgesics. He had some control of his pain but then returned. His analgesics were redosed. Labs do demonstrate markedly elevated lipase. Patient underwent CT imaging which shows acute pancreatitis without hemorrhage. Given his advanced age and persistent pain, I do feel that he would benefit from admission. Patient was discussed with the hospitalist. Impression 1. Acute pancreatitis ED Disposition - Plan for ED Patient: Referrals: Yash Mahoney DO [Primary Care Provider] -
[2020-09-07] MEDS: 0.9% Normal Saline 1,000 ML 1000 ML IV (20:30)
[2020-09-07] MEDS: Morphine 4 MG/ML Syringe IV (20:32)
[2020-09-07] MEDS: Ondansetron 4 MG/2 ML Vial IV (20:32)
[2020-09-07 20:35] LABS: Absolute Lymphocyte Count 3.14 X10^3/uL (0.83-4.51); Absolute Neutrophil Count 5.2 X10^3/uL (2.0-7.7); Basophil# 0.04 X10^3/uL; Basophil% 0.4 % (0-1); Eosinophil# 0.14 X10^3/uL; Eosinophils% 1.5 % (0-5); Hemoglobin 12.6 g/dL (13.0-16.5); Lymphocyte # 3.14 X10^3/ul (0.83-4.51); Lymphocyte % 33.3 % (19-41); Mean Corp Hgb Conc 32.3 g/dL (32-36); Mean Corpuscular Hgb 30.7 pg (27.0-32.0); Mean Corpuscular Volume 94.9 fL (80-94); Monocyte# 0.88 X10^3/uL; Monocyte% 9.3 % (0-10); NRBC Flagged by Analyzer 0 % (0-5); Neutrophil # 5.21 X10^3/uL (2.7-7.7); Neutrophil % 55.3 % (47-70); Platelet Count 223 K/mm3 (150-450); RBC Distribution Width CV 13.3 % (11.6-14.6); RBC Distribution Width SD 46.5 fl (35.1-43.9); Red Blood Count 4.11 M/mm3 (4.6-6.2); White Blood Count 9.4 K/mm3 (4.4-11.0)
[2020-09-07 21:03] LABS: ALB/GLOB Ratio 1.2 RATIO (0.9-2.4); AST(SGOT) 36 U/L (15-37); Alanine Aminotransfer ALT/SGPT 45 U/L (16-61); Albumin, Serum 3.9 g/dL (3.2-5.0); Alkaline Phosphatase 76 U/L (45-117); Anion Gap 7 (5-15); BUN 27 mg/dL (7-18); BUN/Creat Ratio 15.6 RATIO (10-20); Calcium,Total 8.8 mg/dL (8.5-10.1); Chloride 102 mmol/L (98-107); Creatinine, Serum 1.73 mg/dL (0.70-1.30); EST Glomerular Filtration Rate 41 mL/min (>60); Est Glom Filt Rate - Afr Amer 49 mL/min (>60); Estimated Creatinine Clearance 35.16 ml/min; Globulin 3.2 g/dL (2.2-4.2); Glucose 145 mg/dL (74-106); Potassium 3.5 mmol/L (3.5-5.1); Protein, Total 7.1 g/dL (6.4-8.2); Sodium Level 140 mmol/L (136-145)
[2020-09-07 21:05] LABS: Lactic Acid 1.6 mmol/L (0.4-1.9)
[2020-09-07 21:07] LABS: Lipase > 30000 U/L (73-393)
[2020-09-07] MEDS: HYDROmorphone 0.5 MG/0.5 ML SYRINGE IV (21:50)
[2020-09-07] MEDS: 0.9% Normal Saline 1,000 ML 999 ML IV (21:50)
[2020-09-07 21:56] VITALS: BP 143/75; PULSE 88; RESP 15; TEMP 36.6; O2SAT 95
--- NOTE | 2020-09-07 22:03 | PCM.HP.STD ---
Problem List (1) Idiopathic acute pancreatitis Status: Acute (2) Hyperlipemia, mixed Status: Chronic (3) Essential (primary) hypertension Status: Chronic (4) Paroxysmal atrial fibrillation Status: Chronic History of Present Illness Date of Admission: 09/07/20 Chief Complaint: abdominal pain The patient is a 80 year old male patient presents the emergency room with acute abdominal pain. The patient does have a past medical history of idiopathic pancreatitis and has had his gallbladder removed previously however this did not alleviate occurrence. The patient noticed earlier today having acute abdominal pain in the epigastrium in the right upper quadrant. Is vomited twice prior to arrival in the emergency room. Lipase is over 30,000 and liver functions are unremarkable. CT scan shows a 1 cm cystic lesion in the pancreas and mild pancreatitis at this time and recommends an MRI be done in 2 years to follow-up the cystic lesion. The patient did receive 0.5 mg of Dilaudid in the emergency room but was continuing to have significant pain. He will be admitted for pancreatitis and made n.p.o. and given pain medications and IV fluids and repeat labs in the morning. Past Medical History Past Medical History (Chronic Problems): Chronic Problems (Last Reviewed 04/25/19 @ 11:[address] Eugene Monson MD) Hyperlipemia, mixed (Chronic) Essential (primary) hypertension (Chronic) Syncope (Chronic 03/2019) Sinus pause (Chronic) Bradyarrhythmia (Chronic) Non-sustained ventricular tachycardia (Chronic) Paroxysmal atrial fibrillation (Chronic) Medical History: Medical History (Last Reviewed 04/25/19 @ 11:[address] Eugene Monson MD) Hyperlipemia, mixed (Chronic) E78.2 Essential (primary) hypertension (Chronic) I10 Syncope (Chronic) Onset Date: 03/2019 R55 Sinus pause (Chronic) I45.5 Bradyarrhythmia (Chronic) I49.8 Non-sustained ventricular tachycardia (Chronic) I47.2 Paroxysmal atrial fibrillation (Chronic) I48.0 BPH (benign prostatic hyperplasia) N40.0 Basal cell carcinoma C44.91 Dupuytren contracture M72.0 GERD (gastroesophageal reflux disease) K21.9 Hypothyroidism E03.9 Epistaxis R04.0 xarelto Allergies cephalexin Adverse Reaction (Verified 09/07/20 20:11) diarrhea niacin Adverse Reaction (Verified 09/07/20 20:11) PT UNSURE OF REACTION sore muscles Home Medications: Ambulatory Orders Medication Instructions Recorded levothyroxine 75 mcg capsule 100 mcg PO DAILY 04/24/19 simvastatin 20 mg tablet 20 mg PO QHS 04/24/19 omeprazole 20 mg capsule,delayed 40 mg PO DAILY 04/25/19 release Apixaban [Eliquis] 5 mg PO BID 04/02/20 Hydrochlorothiazide [Hctz] 25 mg PO DAILY 04/02/20 Lisinopril 20 mg PO DAILY 04/02/20 Surgical History: Surgical History (Last Reviewed 04/25/19 @ 11:[address] Eugene Monson MD) H/O blepharoplasty Z98.890 H/O hemorrhoidectomy Z98.890 H/O knee surgery Z98.890 H/O umbilical hernia repair Z98.890, Z87.19 History of cataract surgery Z98.49 History of cholecystectomy Z90.49 History of ventral hernia repair Z98.890, Z87.19 S/P cystourethroscopy with dilation of urethral stricture Z98.890 Surgical History: cholecystectomy, herniorrhaphy Smoking Status: Former smoker Review of Systems Constitutional: Denies: Chills, Fever, Weight Change HEENT: Denies: Head Aches, Sinus Congestion, Sinus Drainage Cardiovascular: Denies: Chest Pain, Palpitations Respiratory: Denies: Cough, Shortness of breath at rest, Sputum production Gastrointestinal: Reports: Abdominal Pain, Nausea, Vomiting Genitourinary: Denies: Dysuria Musculoskeletal: Denies: Joint Pain, Joint Tenderness Skin: Denies: Rash, Wounds Neurological: Denies: Numbness, Tingling, Focal weakness Psychiatric: Denies: Anxiety, Depression, Homicidal Ideations, Suicidal Ideations Hematologic/ Lymphatic: Denies: Easy Bruising, Easy Bleeding VTE Information - Inpt Only VTE Present on Admission: No VTE Mechan Device Prophylaxis: None VTE Pharm Prophylaxis ordered?: Yes - Physical Exam Vitals/I&O's: Vital Signs Temp Pulse Resp BP Pulse Ox 97.9 F 88 15 143/75 H 95 09/07/20 21:56 09/07/20 21:56 09/07/20 21:56 09/07/20 21:56 09/07/20 21:56 Oxygen Delivery Method Room Air Weight: 210 lb Body Mass Index (BMI) 30.1 Intake and Output for Last 24 Hours 09/05/20 09/06/20 09/07/20 23:59 23:59 23:59 Intake Total 1000 / 1000 Balance 1000 / 1000 General: Alert, Oriented x3, Cooperative HEENT: Atraumatic, Normocephalic Neck: Supple Lungs: Clear to auscultation, Normal air movement Cardiovascular: Regular rate, Normal S1, Normal S2, No murmurs Abdomen: Bowel Sounds Present, Tender Extremities: No edema Skin: No rashes Musculoskeletal: No Tenderness to Palpation of Joints or Extremities Neurological: Neuro grossly intact Psych/Mental Status: Normal Affect, Appropriate Laboratory Results 09/07/20 20:23: WBC 9.4, RBC 4.11 L, Hgb 12.6 L, Hct 39.0 L, MCV 94.9 H, MCH 30.7, MCHC 32.3, RDW Std Deviation 46.5 H, RDW Coeff of Ksenia 13.3, Plt Count 223, MPV 10.0, Immature Gran % (Auto) 0.200, Neut % (Auto) 55.3, Lymph % (Auto) 33.3, [place] % (Auto) 9.3, Eos % (Auto) 1.5, Baso % (Auto) 0.4, Absolute Neuts (auto) 5.2, Absolute Lymphs (auto) 3.14, Nucleated RBC % 0 09/07/20 20:23: Sodium 140, Potassium 3.5, Chloride 102, Carbon Dioxide 31.0, Anion Gap 7, BUN 27 H, Creatinine 1.73 H, Estim Creat Clear Calc 35.16, Est GFR (MDRD) Af Amer 49 L, Est GFR (MDRD) Non-Af 41 L, BUN/Creatinine Ratio 15.6, Glucose 145 H, Calcium 8.8, Total Bilirubin 0.90, AST 36, ALT 45, Alkaline Phosphatase 76, Troponin I < 0.015, Total Protein 7.1, Albumin 3.9, Globulin 3.2, Albumin/Globulin Ratio 1.2, Lipase > 19781 H 09/07/20 20:36: Lactic Acid 1.6 Current Medications Sodium Chloride () 1,000 mls @ 999 mls/hr IV .Q1H1M ONE Stop: 09/07/20 22:43 Last Admin: 09/07/20 21:50 Dose: 999 mls/hr Documented by: Assessment/Plan All Active Problems (Last Reviewed 04/25/19 @ 11:[address] Eugene Monson MD) Idiopathic acute pancreatitis (Acute) Chronic Problems (Last Reviewed 04/25/19 @ 11:[address] Eugene Monson MD) Hyperlipemia, mixed (Chronic) Essential (primary) hypertension (Chronic) Syncope (Chronic 03/2019) Sinus pause (Chronic) Bradyarrhythmia (Chronic) Non-sustained ventricular tachycardia (Chronic) Paroxysmal atrial fibrillation (Chronic) Plan 1. Acute idiopathic pancreatitis?admit patient to medical surgical floor, make n.p.o., Dilaudid 0.5 mg every 3 hours as needed pain, Zofran 4 mg IV every 8 hours as needed nausea, repeat CBC CMP and lipase in the morning, normal saline at 100 cc/h. 2. Hypertension?continue home medications 3. DVT prophylaxis?low molecular weight heparin Inpatient E&M: 10918 Init Hosp L3
[2020-09-07 22:33] VITALS: BP 110/69; PULSE 103; RESP 16; TEMP 36.7; O2SAT 94
[2020-09-07 22:48] VITALS: BMI 29.8
[2020-09-07 22:55] VITALS: BMI 29.8
[2020-09-07] MEDS: 0.9% Normal Saline 1,000 ML 100 ML IV (23:13)
[2020-09-08 03:37] VITALS: BP 122/59; PULSE 72; RESP 16; TEMP 36.4; O2SAT 95
[2020-09-08] MEDS: HYDROmorphone 0.5 MG/0.5 ML SYRINGE IV ×3 (03:37→14:17)
[2020-09-08 06:01] LABS: Absolute Lymphocyte Count 0.88 X10^3/uL (0.83-4.51); Basophil# 0.01 X10^3/uL; Basophil% 0.2 % (0-1); Eosinophil# 0.01 X10^3/uL; Eosinophils% 0.2 % (0-5); Hematocrit 33.7 % (40-54); Hemoglobin 10.9 g/dL (13.0-16.5); Lymphocyte # 0.88 X10^3/ul (0.83-4.51); Lymphocyte % 15.8 % (19-41); Mean Corp Hgb Conc 32.3 g/dL (32-36); Mean Corpuscular Hgb 31.2 pg (27.0-32.0); Mean Corpuscular Volume 96.6 fL (80-94); Mean Platelet Vol. 9.9 fl (6.2-12.0); Monocyte# 0.63 X10^3/uL; Monocyte% 11.3 % (0-10); NRBC Flagged by Analyzer 0 % (0-5); Neutrophil # 4.03 X10^3/uL (2.7-7.7); Neutrophil % 72.1 % (47-70); Platelet Count 173 K/mm3 (150-450); RBC Distribution Width CV 13.6 % (11.6-14.6); RBC Distribution Width SD 48.3 fl (35.1-43.9); Red Blood Count 3.49 M/mm3 (4.6-6.2); White Blood Count 5.6 K/mm3 (4.4-11.0)
[2020-09-08 07:06] LABS: ALB/GLOB Ratio 1.1 RATIO (0.9-2.4); AST(SGOT) 155 U/L (15-37); Alanine Aminotransfer ALT/SGPT 131 U/L (16-61); Albumin, Serum 3.1 g/dL (3.2-5.0); Alkaline Phosphatase 85 U/L (45-117); Anion Gap 5 (5-15); BUN 23 mg/dL (7-18); BUN/Creat Ratio 15.4 RATIO (10-20); Chloride 105 mmol/L (98-107); Creatinine, Serum 1.49 mg/dL (0.70-1.30); EST Glomerular Filtration Rate 48 mL/min (>60); Est Glom Filt Rate - Afr Amer 58 mL/min (>60); Estimated Creatinine Clearance 40.83 ml/min; Globulin 2.7 g/dL (2.2-4.2); Glucose 133 mg/dL (74-106); Lipase 7616 U/L (73-393); Protein, Total 5.8 g/dL (6.4-8.2); Sodium Level 139 mmol/L (136-145)
--- NOTE | 2020-09-08 08:03 | PCM.PN.HOSP ---
Patient Problems: Active and Suspected Problems (Last Reviewed 04/25/19 @ 11:[address] Eugene Monson MD) Idiopathic acute pancreatitis (Acute) Reason for Visit: Follow-up for acute pancreatitis. Objective: Patient is admitted with acute on recurrent pancreatitis. Patient had 2 episodes of acute pancreatitis before. Epigastric abdominal pain started yesterday on the day of admission. Mild nausea and vomiting. Loss of appetite. Physical exam General: Alert, Oriented x3, Cooperative HEENT: Atraumatic, PERRLA, EOMI, Normocephalic Oral: No Gingival or Mucosal Lesions/ Ulcerations Neck: Supple, No JVD, Negative Carotid Bruits Lungs: Air entry diminished in bilateral lung bases. No crepitation/rhonchi Cardiovascular: Regular rate, Regular Rhythm, Normal S1, Normal S2, No murmurs Abdomen: Soft, epigastric tenderness present. Mild distention mainly upper abdomen. Sluggish bowel sounds. : No renal angle tenderness. No suprapubic tenderness. Extremities: No edema, Capillary Refill Less than 3 Seconds Skin: No rashes, No breakdown Musculoskeletal: No Tenderness to Palpation of Joints or Extremities Neurological: Cranial nerves II-XII grossly intact, Deep Tendon Reflexes 2+/4 and Symmetrical, Neuro grossly intact Psych/Mental Status: Normal Affect, Appropriate. Vitals/I&O's: Vital Signs Temp Pulse Resp BP Pulse Ox 97.6 F L 72 16 122/59 H 95 09/08/20 03:37 09/08/20 03:37 09/08/20 03:37 09/08/20 03:37 09/08/20 03:37 Oxygen Delivery Method Room Air Weight: 210 lb 12.191 oz Body Mass Index (BMI) 29.8 Intake and Output for Last 24 Hours 09/06/20 09/07/20 09/08/20 23:59 23:59 23:59 Intake Total 1999 Output Total 650 / 650 Balance 1999 -650 / -650 Laboratory Results 09/07/20 20:23: WBC 9.4, RBC 4.11 L, Hgb 12.6 L, Hct 39.0 L, MCV 94.9 H, MCH 30.7, MCHC 32.3, RDW Std Deviation 46.5 H, RDW Coeff of Ksenia 13.3, Plt Count 223, MPV 10.0, Immature Gran % (Auto) 0.200, Neut % (Auto) 55.3, Lymph % (Auto) 33.3, [place] % (Auto) 9.3, Eos % (Auto) 1.5, Baso % (Auto) 0.4, Absolute Neuts (auto) 5.2, Absolute Lymphs (auto) 3.14, Nucleated RBC % 0 09/07/20 20:23: Sodium 140, Potassium 3.5, Chloride 102, Carbon Dioxide 31.0, Anion Gap 7, BUN 27 H, Creatinine 1.73 H, Estim Creat Clear Calc 35.16, Est GFR (MDRD) Af Amer 49 L, Est GFR (MDRD) Non-Af 41 L, BUN/Creatinine Ratio 15.6, Glucose 145 H, Calcium 8.8, Total Bilirubin 0.90, AST 36, ALT 45, Alkaline Phosphatase 76, Troponin I < 0.015, Total Protein 7.1, Albumin 3.9, Globulin 3.2, Albumin/Globulin Ratio 1.2, Lipase > 59530 H 09/07/20 20:36: Lactic Acid 1.6 09/08/20 05:54: WBC 5.6, RBC 3.49 L, Hgb 10.9 L, Hct 33.7 L, MCV 96.6 H, MCH 31.2, MCHC 32.3, RDW Std Deviation 48.3 H, RDW Coeff of Ksenia 13.6, Plt Count 173, MPV 9.9, Immature Gran % (Auto) 0.400, Neut % (Auto) 72.1 H, Lymph % (Auto) 15.8 L, [place] % (Auto) 11.3 H, Eos % (Auto) 0.2, Baso % (Auto) 0.2, Absolute Neuts (auto) 4.0, Absolute Lymphs (auto) 0.88, Nucleated RBC % 0 09/08/20 05:54: Sodium 139, Potassium 4.0, Chloride 105, Carbon Dioxide 29.0, Anion Gap 5, BUN 23 H, Creatinine 1.49 H, Estim Creat Clear Calc 40.83, Est GFR (MDRD) Af Amer 58 L, Est GFR (MDRD) Non-Af 48 L, BUN/Creatinine Ratio 15.4, Glucose 133 H, Calcium 8.0 L, Total Bilirubin 0.90, AST 155 H, ALT 131 H, Alkaline Phosphatase 85, Total Protein 5.8 L, Albumin 3.1 L, Globulin 2.7, Albumin/Globulin Ratio 1.1, Lipase 7616 H Current Medications Enoxaparin Sodium (Enoxaparin 40 Mg/0.4 Ml Syringe) 40 mg SC DAILY RENZO Hydromorphone HCl (Hydromorphone 0.5 Mg/0.5 Ml Syringe) 0.5 mg IV Q4H PRN PRN PRN Reason: Pain Score 6-10 Last Admin: 09/08/20 03:37 Dose: 0.5 mg Documented by: Sodium Chloride () 1,000 mls @ 100 mls/hr IV .Q10H RENZO Last Admin: 09/07/20 23:13 Dose: 100 mls/hr Documented by: Ondansetron HCl (Ondansetron 4 Mg/2 Ml Vial) 4 mg IV Q8H PRN PRN PRN Reason: NAUSEA/VOMITING Sodium Chloride (0.9% Saline Lock 10 Ml Syringe) 10 - 40 ml IV UD PRN PRN Reason: SALINE FLUSH Medical Necessity - Tobacco Use Smoking Status: Former smoker Assessment/Plan All Active Problems (Last Reviewed 04/25/19 @ 11:[address] Eugene Monson MD) Idiopathic acute pancreatitis (Acute) This 80-year-old gentleman with history of recurrent pancreatitis, 2 episodes in the past admitted with epigastric abdominal pain and elevated lipase consistent with acute on recurrent pancreatitis. Assessment and plan 1. Acute idiopathic pancreatitis?the patient is being admitted on MedSurg floor. IV fluid Ringer lactate. Supportive treatment with pain management, antiemetics and serial abdominal exam. No leukocytosis. BUN 23/creatinine 1.49. Mild drop in hemoglobin. CT abdomen shows 1 cm cystic lesion in the body of pancreas with peripheral calcification suggestive more of pseudocyst in present clinical context. 2. Hypertension?continue home medications 3. DVT prophylaxis?low molecular weight heparin Clinical Impression(s) from Imaging Studies Abdomen/Pelvis CT 09/07/20 20:22 IMPRESSION: Acute interstitial edematous pancreatitis. 1 cm cystic lesion in the body of the pancreas with peripheral calcification could represent a pseudocyst versus cystic neoplasm. Recommend follow-up MRI in 2 years. Laboratory Results 09/07/20 20:23: WBC 9.4, RBC 4.11 L, Hgb 12.6 L, Hct 39.0 L, MCV 94.9 H, MCH 30.7, MCHC 32.3, RDW Std Deviation 46.5 H, RDW Coeff of Ksenia 13.3, Plt Count 223, MPV 10.0, Immature Gran % (Auto) 0.200, Neut % (Auto) 55.3, Lymph % (Auto) 33.3, [place] % (Auto) 9.3, Eos % (Auto) 1.5, Baso % (Auto) 0.4, Absolute Neuts (auto) 5.2, Absolute Lymphs (auto) 3.14, Nucleated RBC % 0 09/07/20 20:23: Sodium 140, Potassium 3.5, Chloride 102, Carbon Dioxide 31.0, Anion Gap 7, BUN 27 H, Creatinine 1.73 H, Estim Creat Clear Calc 35.16, Est GFR (MDRD) Af Amer 49 L, Est GFR (MDRD) Non-Af 41 L, BUN/Creatinine Ratio 15.6, Glucose 145 H, Calcium 8.8, Total Bilirubin 0.90, AST 36, ALT 45, Alkaline Phosphatase 76, Troponin I < 0.015, Total Protein 7.1, Albumin 3.9, Globulin 3.2, Albumin/Globulin Ratio 1.2, Lipase > 12536 H 09/07/20 20:36: Lactic Acid 1.6 09/08/20 05:54: WBC 5.6, RBC 3.49 L, Hgb 10.9 L, Hct 33.7 L, MCV 96.6 H, MCH 31.2, MCHC 32.3, RDW Std Deviation 48.3 H, RDW Coeff of Ksenia 13.6, Plt Count 173, MPV 9.9, Immature Gran % (Auto) 0.400, Neut % (Auto) 72.1 H, Lymph % (Auto) 15.8 L, [place] % (Auto) 11.3 H, Eos % (Auto) 0.2, Baso % (Auto) 0.2, Absolute Neuts (auto) 4.0, Absolute Lymphs (auto) 0.88, Nucleated RBC % 0 09/08/20 05:54: Sodium 139, Potassium 4.0, Chloride 105, Carbon Dioxide 29.0, Anion Gap 5, BUN 23 H, Creatinine 1.49 H, Estim Creat Clear Calc 40.83, Est GFR (MDRD) Af Amer 58 L, Est GFR (MDRD) Non-Af 48 L, BUN/Creatinine Ratio 15.4, Glucose 133 H, Calcium 8.0 L, Total Bilirubin 0.90, AST 155 H, ALT 131 H, Alkaline Phosphatase 85, Total Protein 5.8 L, Albumin 3.1 L, Globulin 2.7, Albumin/Globulin Ratio 1.1, Lipase 7616 H Inpatient E&M: 72583 Subs Hosp L2
[2020-09-08 08:34] VITALS: BP 126/69; PULSE 70; RESP 16; TEMP 37.1; O2SAT 94
--- NOTE | 2020-09-08 09:21 | CASEMGMT ---
Social Work Note Per project superintendent questions, pt has completed LW and HCPOA but haven't provided copy to [facility] and pt unable to bring in copies. Justine Rubio SOAP DRIER OPERATOR, LIFE INSURANCE SALES AGENT
[2020-09-08] MEDS: 0.9% Normal Saline 1,000 ML 100 ML IV (09:58)
[2020-09-08] MEDS: Enoxaparin 40 MG/0.4 ML Syringe SC (09:58)
--- NOTE | 2020-09-08 11:05 | CASEMGMT ---
SAMANTHA RAYA Assessment: Face to Face with pt for initial transition planning/care coordination assessment. RN DOROTA introduced self and role at [facility], pt voices understanding and consents to assessment per . Pt is A/O x4 lying in bed with eyes closed. Pt requests to answer all questions. Care providers, pharmacy, and demographics verified/updated. Admitting Dx: acute pancreatitis PCP: Maru Specialists: Iona, cardio; Mara, uro; Siders, onc Preferred [facility]acy: [facility] Insurance: [facility], MMO Prescription Benefit: yes LW/HPOA: Pt states pt does have LW and DPOA. Pt DPOA is , [place]. LNOK: [place], ; Reva White, daughter Living Arrangements: Pt lives in a single story house with his with 2 steps to enter without rail. Pt denies any concerns at home. Transportation: Pt drives self. denies concerns with transportation. DME/HHC/SNF: Pt denies DME, previous HHC or SNF stays. states pt just finished 44 radiation treatments on 2020. She states no concerns with going home at time of dc. Pt states no further concerns/needs. CM to follow. Advised pt/ to ask CM if any further question/concerns/needs arise, voices understanding. Pt Goal: Home Plan: Home with family support.
[2020-09-08 14:05] VITALS: BP 126/66; PULSE 64; RESP 16; TEMP 36.7; O2SAT 93
[2020-09-08] MEDS: Lactated Ringers 1,000 ML 150 ML IV (15:10)
[2020-09-08 15:50] VITALS: O2SAT 91
[2020-09-08 20:23] VITALS: BP 124/58; PULSE 63; RESP 18; TEMP 36.7; O2SAT 95
[2020-09-09 02:52] VITALS: BP 123/58; PULSE 65; RESP 18; TEMP 36.7; O2SAT 92
[2020-09-09] MEDS: 0.9% Saline Lock 10 ML Syringe IV (02:59)
[2020-09-09 06:02] LABS: Absolute Lymphocyte Count 0.74 X10^3/uL (0.83-4.51); Absolute Neutrophil Count 4.9 X10^3/uL (2.0-7.7); Basophil# 0.02 X10^3/uL; Basophil% 0.3 % (0-1); Eosinophil# 0.06 X10^3/uL; Eosinophils% 0.9 % (0-5); Hematocrit 32.6 % (40-54); Hemoglobin 10.3 g/dL (13.0-16.5); Lymphocyte # 0.74 X10^3/ul (0.83-4.51); Lymphocyte % 11.5 % (19-41); Mean Corp Hgb Conc 31.6 g/dL (32-36); Mean Corpuscular Hgb 30.4 pg (27.0-32.0); Mean Corpuscular Volume 96.2 fL (80-94); Mean Platelet Vol. 10.1 fl (6.2-12.0); Monocyte# 0.67 X10^3/uL; Monocyte% 10.4 % (0-10); NRBC Flagged by Analyzer 0 % (0-5); Neutrophil # 4.92 X10^3/uL (2.7-7.7); Neutrophil % 76.6 % (47-70); Platelet Count 145 K/mm3 (150-450); RBC Distribution Width CV 13.7 % (11.6-14.6); RBC Distribution Width SD 48.5 fl (35.1-43.9); Red Blood Count 3.39 M/mm3 (4.6-6.2); White Blood Count 6.4 K/mm3 (4.4-11.0)
[2020-09-09 06:38] LABS: ALB/GLOB Ratio 1.1 RATIO (0.9-2.4); AST(SGOT) 59 U/L (15-37); Alanine Aminotransfer ALT/SGPT 85 U/L (16-61); Alkaline Phosphatase 74 U/L (45-117); Anion Gap 5 (5-15); BUN 22 mg/dL (7-18); BUN/Creat Ratio 17.7 RATIO (10-20); Chloride 105 mmol/L (98-107); Cholesterol 126 mg/dL (200); Creatinine, Serum 1.24 mg/dL (0.70-1.30); EST Glomerular Filtration Rate 60 mL/min (>60); Est Glom Filt Rate - Afr Amer 72 mL/min (>60); Estimated Creatinine Clearance 49.06 ml/min; Globulin 2.7 g/dL (2.2-4.2); Glucose 97 mg/dL (74-106); High Density Lipoprotein 42 mg/dL; Potassium 3.4 mmol/L (3.5-5.1); Protein, Total 5.7 g/dL (6.4-8.2); Sodium Level 140 mmol/L (136-145); Triglycerides 75 mg/dL; Very Low Density Lipoprotein 15 mg/dL (5-40)
[2020-09-09] MEDS: Lactated Ringers 1,000 ML 100 ML IV ×2 (07:53→18:34)
[2020-09-09] MEDS: Potassium Chloride Oral Tablet 20 MEQ 40 MEQ PO ×2 (07:53→10:34)
[2020-09-09 08:00] VITALS: BP 114/68; PULSE 89; RESP 16; TEMP 36.7; O2SAT 96
[2020-09-09 08:58] VITALS: O2SAT 92
[2020-09-09] MEDS: Enoxaparin 40 MG/0.4 ML Syringe SC (10:33)
[2020-09-09 14:00] VITALS: BP 131/77; PULSE 73; RESP 16; TEMP 36.7; O2SAT 97
--- NOTE | 2020-09-09 17:22 | PCM.PN.HOSP ---
Patient Problems: Active and Suspected Problems (Last Reviewed 04/25/19 @ 11:[address] Eugene Monson MD) Idiopathic acute pancreatitis (Acute) Reason for Visit: Follow-up for pancreatitis Objective: Seen and examined. Epigastric pain is much improved. Denies any abdominal pain or heaviness but mild discomfort. Physical exam General: Alert, Oriented x3, Cooperative HEENT: Atraumatic, PERRLA, EOMI, Normocephalic Oral: No Gingival or Mucosal Lesions/ Ulcerations Neck: Supple, No JVD, Negative Carotid Bruits Lungs: Air entry diminished in bilateral lung bases. No crepitation/rhonchi Cardiovascular: Regular rate, Regular Rhythm, Normal S1, Normal S2, No murmurs Abdomen: Bowel Sounds Present, Soft, Non Tender, Non-Distended. No mass palpable. : No renal angle tenderness. No suprapubic tenderness. Extremities: No edema, Capillary Refill Less than 3 Seconds Skin: No rashes, No breakdown Musculoskeletal: No Tenderness to Palpation of Joints or Extremities Neurological: Cranial nerves II-XII grossly intact, Deep Tendon Reflexes 2+/4 and Symmetrical, Neuro grossly intact Psych/Mental Status: Normal Affect, Appropriate. Vitals/I&O's: Vital Signs Temp Pulse Resp BP Pulse Ox 98.0 F 73 16 131/77 H 97 09/09/20 14:00 09/09/20 14:00 09/09/20 14:00 09/09/20 14:00 09/09/20 14:00 Oxygen Delivery Method Room Air Weight: 210 lb 12.191 oz Body Mass Index (BMI) 29.8 Intake and Output for Last 24 Hours 09/07/20 09/08/20 09/09/20 23:59 23:59 23:59 Intake Total 1999 2520 / 2520 Output Total 1300 / 1600 300 / 300 Balance 1999 1220 / 920 -300 / -300 Laboratory Results 09/09/20 05:38: WBC 6.4, RBC 3.39 L, Hgb 10.3 L, Hct 32.6 L, MCV 96.2 H, MCH 30.4, MCHC 31.6 L, RDW Std Deviation 48.5 H, RDW Coeff of [place] 13.7, Plt Count 145 L, MPV 10.1, Immature Gran % (Auto) 0.300, Neut % (Auto) 76.6 H, Lymph % (Auto) 11.5 L, [place] % (Auto) 10.4 H, Eos % (Auto) 0.9, Baso % (Auto) 0.3, Absolute Neuts (auto) 4.9, Absolute Lymphs (auto) 0.74 L, Nucleated RBC % 0 09/09/20 05:38: Sodium 140, Potassium 3.4 L, Chloride 105, Carbon Dioxide 30.0, Anion Gap 5, BUN 22 H, Creatinine 1.24, Estim Creat Clear Calc 49.06, Est GFR (MDRD) Af Amer 72, Est GFR (MDRD) Non-Af 60, BUN/Creatinine Ratio 17.7, Glucose 97, Calcium 8.0 L, Total Bilirubin 1.20 H, AST 59 H, ALT 85 H, Alkaline Phosphatase 74, C-React Prot Ext Range 36.80 H, Total Protein 5.7 L, Albumin 3.0 L, Globulin 2.7, Albumin/Globulin Ratio 1.1, Triglycerides 75, Cholesterol 126, LDL Cholesterol 69, VLDL Cholesterol 15, HDL Cholesterol 42 Current Medications Enoxaparin Sodium (Enoxaparin 40 Mg/0.4 Ml Syringe) 40 mg SC DAILY [facility] Last Admin: 09/09/20 10:33 Dose: 40 mg Documented by: Hydromorphone HCl (Hydromorphone 0.5 Mg/0.5 Ml Syringe) 0.5 mg IV Q4H PRN PRN PRN Reason: Pain Score 6-10 Last Admin: 09/08/20 14:17 Dose: 0.5 mg Documented by: Lactated Ringer's () 1,000 mls @ 100 mls/hr IV .Q10H [facility] Stop: 09/10/20 03:34 Last Admin: 09/09/20 07:53 Dose: 100 mls/hr Documented by: Ondansetron HCl (Ondansetron 4 Mg/2 Ml Vial) 4 mg IV Q8H PRN PRN PRN Reason: NAUSEA/VOMITING Sodium Chloride (0.9% Saline Lock 10 Ml Syringe) 10 - 40 ml IV UD PRN PRN Reason: SALINE FLUSH Last Admin: 09/09/20 02:59 Dose: 10 ml Documented by: STROKE Vital Signs/Narrative: Vital Signs Temp Pulse Resp BP Pulse Ox 09/09/20 14:00 98.0 F 73 16 131/77 H 97 Medical Necessity - Tobacco Use Smoking Status: Former smoker Assessment/Plan All Active Problems (Last Reviewed 04/25/19 @ 11:[address] Eugene Monson MD) Idiopathic acute pancreatitis (Acute) This 80-year-old gentleman with history of recurrent pancreatitis, 2 episodes in the past admitted with epigastric abdominal pain and elevated lipase consistent with acute on recurrent pancreatitis. Assessment and plan 1. Acute idiopathic pancreatitis?[facility] IV fluid Ringer lactate. Supportive treatment with pain management, antiemetics and serial abdominal exam. No leukocytosis. BUN 23/creatinine 1.49. Mild drop in hemoglobin. CT abdomen shows 1 cm cystic lesion in the body of pancreas with peripheral calcification suggestive more of pseudocyst in present clinical context. Patient was advised to follow-up with the [facility] digestive disease [place], pancreatologist for history of recurrent pancreatitis with unknown cause. Patient had cholecystectomy in the past Clear liquid allowed. IV fluid decreased. Monitor electrolytes and liver chemistry tomorrow a.m. 2. Hypertension?continue home medications 3. DVT prophylaxis?low molecular weight heparin Clinical Impression(s) from Imaging Studies Abdomen/Pelvis CT 09/07/20 20:22 IMPRESSION: Acute interstitial edematous pancreatitis. 1 cm cystic lesion in the body of the pancreas with peripheral calcification could represent a pseudocyst versus cystic neoplasm. Recommend follow-up MRI in 2 years. Laboratory Results 09/09/20 05:38: WBC 6.4, RBC 3.39 L, Hgb 10.3 L, Hct 32.6 L, MCV 96.2 H, MCH 30.4, MCHC 31.6 L, RDW Std Deviation 48.5 H, RDW Coeff of [place] 13.7, Plt Count 145 L, MPV 10.1, Immature Gran % (Auto) 0.300, Neut % (Auto) 76.6 H, Lymph % (Auto) 11.5 L, [place] % (Auto) 10.4 H, Eos % (Auto) 0.9, Baso % (Auto) 0.3, Absolute Neuts (auto) 4.9, Absolute Lymphs (auto) 0.74 L, Nucleated RBC % 0 09/09/20 05:38: Sodium 140, Potassium 3.4 L, Chloride 105, Carbon Dioxide 30.0, Anion Gap 5, BUN 22 H, Creatinine 1.24, Estim Creat Clear Calc 49.06, Est GFR (MDRD) Af Amer 72, Est GFR (MDRD) Non-Af 60, BUN/Creatinine Ratio 17.7, Glucose 97, Calcium 8.0 L, Total Bilirubin 1.20 H, AST 59 H, ALT 85 H, Alkaline Phosphatase 74, C-React Prot Ext Range 36.80 H, Total Protein 5.7 L, Albumin 3.0 L, Globulin 2.7, Albumin/Globulin Ratio 1.1, Triglycerides 75, Cholesterol 126, LDL Cholesterol 69, VLDL Cholesterol 15, HDL Cholesterol 42 Inpatient E&M: 94245 Subs Hosp L2
[2020-09-09 20:35] VITALS: BP 152/75; PULSE 71; RESP 18; TEMP 37.2; O2SAT 98
[2020-09-10 03:19] VITALS: BP 133/64; PULSE 64; RESP 18; TEMP 37.3; O2SAT 95
[2020-09-10 07:03] LABS: Absolute Lymphocyte Count 0.87 X10^3/uL (0.83-4.51); Absolute Neutrophil Count 4.1 X10^3/uL (2.0-7.7); Basophil# 0.03 X10^3/uL; Basophil% 0.5 % (0-1); Eosinophil# 0.15 X10^3/uL; Eosinophils% 2.6 % (0-5); Hematocrit 31.6 % (40-54); Hemoglobin 10.1 g/dL (13.0-16.5); Lymphocyte # 0.87 X10^3/ul (0.83-4.51); Lymphocyte % 14.8 % (19-41); Mean Corpuscular Hgb 30.8 pg (27.0-32.0); Mean Corpuscular Volume 96.3 fL (80-94); Mean Platelet Vol. 10.6 fl (6.2-12.0); Monocyte# 0.72 X10^3/uL; Monocyte% 12.2 % (0-10); NRBC Flagged by Analyzer 0 % (0-5); Neutrophil # 4.08 X10^3/uL (2.7-7.7); Neutrophil % 69.4 % (47-70); Platelet Count 142 K/mm3 (150-450); RBC Distribution Width CV 13.4 % (11.6-14.6); Red Blood Count 3.28 M/mm3 (4.6-6.2); White Blood Count 5.9 K/mm3 (4.4-11.0)
[2020-09-10 07:34] LABS: AST(SGOT) 38 U/L (15-37); Alanine Aminotransfer ALT/SGPT 60 U/L (16-61); Albumin, Serum 2.8 g/dL (3.2-5.0); Alkaline Phosphatase 72 U/L (45-117); Anion Gap 4 (5-15); BUN 17 mg/dL (7-18); BUN/Creat Ratio 14.3 RATIO (10-20); Calcium,Total 8.1 mg/dL (8.5-10.1); Chloride 106 mmol/L (98-107); Creatinine, Serum 1.19 mg/dL (0.70-1.30); EST Glomerular Filtration Rate 63 mL/min (>60); Est Glom Filt Rate - Afr Amer 76 mL/min (>60); Estimated Creatinine Clearance 51.12 ml/min; Globulin 2.8 g/dL (2.2-4.2); Glucose 88 mg/dL (74-106); Lipase 283 U/L (73-393); Magnesium 1.8 mg/dL (1.6-2.6); Potassium 3.6 mmol/L (3.5-5.1); Protein, Total 5.6 g/dL (6.4-8.2); Sodium Level 139 mmol/L (136-145)
[2020-09-10 07:35] VITALS: O2SAT 94
--- NOTE | 2020-09-10 08:17 | DCINST_ITS ---
- Discharge Diagnoses Current Active Problems: Current Active and Chronic Problems (Last Reviewed 04/25/19 @ 11:[address] Eugene Monson MD) Idiopathic acute pancreatitis (Acute) Hyperlipemia, mixed (Chronic) Essential (primary) hypertension (Chronic) Paroxysmal atrial fibrillation (Chronic) You will use the following diet at home:: Cardiac Your food should be the consistency of: Soft (bite-sized & easy to chew/swallow) - Low-fat diet for 7 days Discharge Activity: May Not Drive - For about 2 weeks until see his PCP Call your doctor if you observe: Fever of 101 or Higher, Coldness, Increased Pain, Numbness or Tingling, Change in Color, Inability to urinate, Inability to have a bowel movement, Shortness of breath, Dizziness, Fainting spells, Swelling in the ankles, Chest pain, Prolonged hiccoughing, Increased palpitations (irregular heartbeat), Calf discomfort, Uncontrolled pain Additional Instructions: Advised to follow-up [facility] digestive [place] for recurrent pancreatitis to evaluate for rare cause, possible autoimmune pancreatitis Allergies/Adverse Reactions: Allergies cephalexin Adverse Reaction (Verified 09/07/20 20:11) diarrhea niacin Adverse Reaction (Verified 09/07/20 20:11) PT UNSURE OF REACTION sore muscles Medications to take at Discharge levothyroxine 75 mcg capsule 100 mcg PO QHS 04/24/19 simvastatin 20 mg tablet 20 mg PO QHS 04/24/19 omeprazole 20 mg capsule,delayed release 40 mg PO QHS 04/25/19 Apixaban [Eliquis] 5 mg PO BID 04/02/20 Lisinopril 20 mg PO QHS 04/02/20 Hydrochlorothiazide [Hctz] 25 mg PO QHS #0 09/10/20 Potassium Chloride Oral Tablet [K-Dur] 20 meq PO DAILYCM #7 tablet 09/10/20 The following prescriptions were given: Potassium Chloride Oral Tablet [K-Dur] 20 meq PO DAILYCM #7 tablet Transmission Status: Received by [facility]/pharmacy #[id number] Primary Care Physician: Yash Mahoney DO [Primary Care Provider] - Please follow up with your Primary Care Physician in: In 2 weeks, follow-up BMP in 1 week Test Results: Test results from this visit will be discussed in further detail at your follow- up appointment, if applicable.
--- NOTE | 2020-09-10 08:19 | PCM.DC.SUM ---
Discharge Date and Diagnosis - Problem List Patient Problems: Active and Suspected Problems (Last Reviewed 04/25/19 @ 11:[address] Eugene Monson MD) Idiopathic acute pancreatitis (Acute) Date of Admission: 04/08/20 Date of Discharge: 09/10/20 - Primary Discharge Diagnosis Acute Problems: Active Problems (Last Reviewed 04/25/19 @ 11:[address] Eugene oMnson MD) Idiopathic acute pancreatitis (Acute) - Secondary Discharge Diagnosis Chronic Problems: Chronic Problems (Last Reviewed 04/25/19 @ 11:[address] Eugene Monson MD) Hyperlipemia, mixed (Chronic) Essential (primary) hypertension (Chronic) Syncope (Chronic 03/2019) Sinus pause (Chronic) Bradyarrhythmia (Chronic) Non-sustained ventricular tachycardia (Chronic) Paroxysmal atrial fibrillation (Chronic) Hospital Course and Treatment Summary of Care Provided: [] This 80-year-old gentleman with history of recurrent pancreatitis, 2 episodes in the past admitted with epigastric abdominal pain and elevated lipase consistent with acute on recurrent pancreatitis. Assessment and plan 1. Acute idiopathic pancreatitis?the patient is being admitted on MedSurg floor. IV fluid Ringer lactate. Supportive treatment with pain management, antiemetics and serial abdominal exam. No leukocytosis. BUN 23/creatinine 1.49. Mild drop in hemoglobin. CT abdomen shows 1 cm cystic lesion in the body of pancreas with peripheral calcification suggestive more of pseudocyst in present clinical context. Patient was advised to follow-up with the [facility] digestive disease [place], pancreatologist for history of recurrent pancreatitis with unknown cause. Patient had cholecystectomy in the past Patient tolerated soft diet. Diet advanced to regular diet with low-fat residue. 2. Hypertension?continue home medications 3. DVT prophylaxis?low molecular weight heparin Discharge medication reconciliation done. Discharge follow-up instructions completed. Discharge process discussed with the patient and all questions were answered to patient's satisfaction. Total time spent, exact 35 minutes on discharge meds reconciliation, examination, coordination of care with nurses and ancillary staff, review of imaging and blood test and discussion with the patient on follow-up instructions Patient Problems: Active and Suspected Problems (Last Reviewed 04/25/19 @ 11:[address] Eugene Monson MD) Idiopathic acute pancreatitis (Acute) Objective: Patient abdominal pain resolved. Tolerated soft diet. Physical exam General: Alert, Oriented x3, Cooperative HEENT: Atraumatic, PERRLA, EOMI, Normocephalic Oral: No Gingival or Mucosal Lesions/ Ulcerations Neck: Supple, No JVD, Negative Carotid Bruits Lungs: Air entry diminished in bilateral lung bases. No crepitation/rhonchi Cardiovascular: Regular rate, Regular Rhythm, Normal S1, Normal S2, No murmurs Abdomen: Bowel Sounds Present, Soft, Non Tender, Non-Distended. No mass palpable. : No renal angle tenderness. No suprapubic tenderness. Extremities: No edema, Capillary Refill Less than 3 Seconds Skin: No rashes, No breakdown Musculoskeletal: No Tenderness to Palpation of Joints or Extremities Neurological: Cranial nerves II-XII grossly intact, Deep Tendon Reflexes 2+/4 and Symmetrical, Neuro grossly intact Psych/Mental Status: Normal Affect, Appropriate. - Physical Exam Vitals/I&O's: Vital Signs Temp Pulse Resp BP Pulse Ox 99.1 F 64 18 133/64 H 94 09/10/20 03:19 09/10/20 03:19 09/10/20 03:19 09/10/20 03:19 09/10/20 07:35 Oxygen Delivery Method Room Air Weight: 210 lb 12.191 oz Body Mass Index (BMI) 29.8 Intake and Output for Last 24 Hours 09/08/20 09/09/20 09/10/20 23:59 23:59 23:59 Intake Total 2520 / 2520 1300 / 1300 1350 / 1350 Output Total 1300 / 1600 300 / 300 Balance 1220 / 920 1000 / 1000 1350 / 1350 Laboratory Results 09/10/20 06:15: WBC 5.9, RBC 3.28 L, Hgb 10.1 L, Hct 31.6 L, MCV 96.3 H, MCH 30.8, MCHC 32.0, RDW Std Deviation 48.0 H, RDW Coeff of [place]sen[place] 13.4, Plt Count 142 L, MPV 10.6, Immature Gran % (Auto) 0.500, Neut % (Auto) 69.4, Lymph % (Auto) 14.8 L, [place] % (Auto) 12.2 H, Eos % (Auto) 2.6, Baso % (Auto) 0.5, Absolute Neuts (auto) 4.1, Absolute Lymphs (auto) 0.87, Nucleated RBC % 0 09/10/20 06:15: Sodium 139, Potassium 3.6, Chloride 106, Carbon Dioxide 29.0, Anion Gap 4 L, BUN 17, Creatinine 1.19, Estim Creat Clear Calc 51.12, Est GFR (MDRD) Af Amer 76, Est GFR (MDRD) Non-Af 63, BUN/Creatinine Ratio 14.3, Glucose 88, Calcium 8.1 L, Magnesium 1.8, Total Bilirubin 1.70 H, AST 38 H, ALT 60, Alkaline Phosphatase 72, Total Protein 5.6 L, Albumin 2.8 L, Globulin 2.8, Albumin/Globulin Ratio 1.0, Lipase 283 Current Medications Enoxaparin Sodium (Enoxaparin 40 Mg/0.4 Ml Syringe) 40 mg SC DAILY [facility] Last Admin: 09/09/20 10:33 Dose: 40 mg Documented by: Hydromorphone HCl (Hydromorphone 0.5 Mg/0.5 Ml Syringe) 0.5 mg IV Q4H PRN PRN PRN Reason: Pain Score 6-10 Last Admin: 09/08/20 14:17 Dose: 0.5 mg Documented by: Ondansetron HCl (Ondansetron 4 Mg/2 Ml Vial) 4 mg IV Q8H PRN PRN PRN Reason: NAUSEA/VOMITING Potassium Chloride (Potassium Chloride Oral Tablet 20 Meq) [facility] Stop: 09/12/20 08:01 Sodium Chloride (0.9% Saline Lock 10 Ml Syringe) 10 - 40 ml IV UD PRN PRN Reason: SALINE FLUSH Last Admin: 09/09/20 02:59 Dose: 10 ml Documented by: Discharge Activity: May Not Drive - For about 2 weeks until see his PCP Call your doctor if you observe: Fever of 101 or Higher, Coldness, Increased Pain, Numbness or Tingling, Change in Color, Inability to urinate, Inability to have a bowel movement, Shortness of breath, Dizziness, Fainting spells, Swelling in the ankles, Chest pain, Prolonged hiccoughing, Increased palpitations (irregular heartbeat), Calf discomfort, Uncontrolled pain Home Medications: Medications to take at Discharge levothyroxine 75 mcg capsule 100 mcg PO QHS 04/24/19 simvastatin 20 mg tablet 20 mg PO QHS 04/24/19 omeprazole 20 mg capsule,delayed release 40 mg PO QHS 04/25/19 Apixaban [Eliquis] 5 mg PO BID 04/02/20 Lisinopril 20 mg PO QHS 04/02/20 Hydrochlorothiazide [Hctz] 25 mg PO QHS #0 09/10/20 Potassium Chloride Oral Tablet [K-Dur] 20 meq PO DAILYCM #7 tablet 09/10/20 Following Prescriptions Were Given to Patient: Potassium Chloride Oral Tablet [K-Dur] 20 meq PO DAILYCM #7 tablet Transmission Status: Received by [facility]/pharmacy #[id number] Primary Care Physician: Yash Mahoney DO [Primary Care Provider] - Please follow up with your Primary Care Physician in: In 2 weeks, follow-up BMP in 1 week Medical Necessity - Tobacco Use Smoking Status: Former smoker Meaningful Use Info Meaningful Use Diagnoses (Choose all that apply): None applicable Inpatient E&M: [id number] [facility]
[2020-09-10 09:43] VITALS: BP 132/70; PULSE 65; RESP 18; TEMP 37.1; O2SAT 97
[2020-09-10] MEDS: Potassium Chloride Oral Tablet 20 MEQ 40 MEQ PO (09:49)
== END 2020-09-10 10:46 | disposition home or self-care (01) | DRG 439 ==
LOC: ED 20:45 → MS3 22:31
PROVIDERS: Admitting Provider Family Medicine; Emergency Provider Emergency Medicine; PCP Family Medicine; Visit Provider Internal Medicine
DX: K85.00 Idiopathic acute pancreatitis without necrosis or infection (principal); R71.0 Precipitous drop in hematocrit; I47.2 Ventricular tachycardia; I10 Essential (primary) hypertension; I48.0 Paroxysmal atrial fibrillation; E78.2 Mixed hyperlipidemia; E03.9 Hypothyroidism, unspecified; K21.9 Gastro-esophageal reflux disease without esophagitis; Z87.891 Personal history of nicotine dependence; Z90.49 Acquired absence of other specified parts of digestive tract; Z79.01 Long term (current) use of anticoagulants; Z85.828 Personal history of other malignant neoplasm of skin; Z79.890 Hormone replacement therapy
CPT/HCPCS: 74177; 80053; 80061; 83605; 83690; 83735; 84484; 85025; 86140; 99284; J7030; J7120; Q9967; A4216; J2405

== ENCOUNTER → 2021-01-21 10:27 | Outpatient (CLI) | payer MEDICARE, OTHER, SELFPAY ==
[2021-01-21 12:29] LABS: PSA,Total- Diagnostic < 0.01 ng/mL (0.0-4.0)
== END ==
PROVIDERS: PCP Family Medicine; Referring Provider Urology; Visit Provider Urology
DX: C61 Malignant neoplasm of prostate (principal)
CPT/HCPCS: 36415; 84153

== ENCOUNTER → 2021-03-22 14:19 | Outpatient (CLI) | payer MEDICARE, OTHER, SELFPAY ==
[2021-03-22 15:29] LABS: Hemoglobin 11.9 g/dL (13.0-16.5); Mean Corpuscular Hgb 30.8 pg (27.0-32.0); Mean Corpuscular Volume 90.7 fL (80-94); Mean Platelet Vol. 10.5 fl (6.2-12.0); Platelet Count 270 K/mm3 (150-450); RBC Distribution Width SD 43.3 fl (35.1-43.9); Red Blood Count 3.86 M/mm3 (4.6-6.2); White Blood Count 4.5 K/mm3 (4.4-11.0)
[2021-03-22 16:02] LABS: ALB/GLOB Ratio 0.8 RATIO (0.9-2.4); AST(SGOT) 28 U/L (15-37); Alanine Aminotransfer ALT/SGPT 26 U/L (16-61); Albumin, Serum 3.2 g/dL (3.2-5.0); Alkaline Phosphatase 79 U/L (45-117); Anion Gap 5 (5-15); BUN 28 mg/dL (7-18); BUN/Creat Ratio 17.8 RATIO (10-20); Calcium,Total 8.5 mg/dL (8.5-10.1); Chloride 104 mmol/L (98-107); Creatinine, Serum 1.57 mg/dL (0.70-1.30); EST Glomerular Filtration Rate 45 mL/min (>60); Est Glom Filt Rate - Afr Amer 55 mL/min (>60); Globulin 3.8 g/dL (2.2-4.2); Glucose 107 mg/dL (74-106); Lipase 101 U/L (73-393); Potassium 3.5 mmol/L (3.5-5.1); Sodium Level 139 mmol/L (136-145)
== END ==
PROVIDERS: PCP Family Medicine
DX: R19.7 Diarrhea, unspecified (principal)
CPT/HCPCS: 36415; 80053; 83690; 85027

== ENCOUNTER 2021-07-29 10:23 | Outpatient (CLI) | payer MEDICARE, OTHER, SELFPAY ==
[2021-07-29 13:02] LABS: PSA,Total- Diagnostic < 0.01 ng/mL (0.0-4.0)
== END 2021-07-29 23:59 | disposition home or self-care (01) ==
LOC: BIMLAB 10:24
PROVIDERS: PCP Family Medicine; Referring Provider Urology; Visit Provider Urology
DX: C61 Malignant neoplasm of prostate (principal)
CPT/HCPCS: 36415; 84153

== ENCOUNTER → 2021-10-22 | Outpatient (CLI) | payer MEDICARE, OTHER, SELFPAY ==
--- NOTE | 2021-10-22 12:47 | STEWCON_ITS ---
Reason For Study: CAD; HTN Stress Results Protocol: Bull Protocol WITH DEFINITY Maximum Predicted HR: 139 bpm Target HR: 118 bpm % Maximum Predicted HR: 96 % DurationHeart Rate Stage (mm:ss) (bpm) BP Comment Baseline 70 126/64No Chest Pain; 5 ML Diluted Definity Bull Protocol Stage I 3:00 118 130/60No Chest Pain Bull Protocol Stage II 3:00 134 144/52No Chest Pain; Mild Dyspnea Recovery 79 126/70No Chest Pain Stress Duration: 6:00 mm:ss Maximum Stress HR: 134 bpm METS: 7 Baseline Echocardiogram Findings Stress Echo Wall motion Data Resting WM Intermediate WM Stress WM ECHO/Stress Test Echo W/Contrast Interpretation Summary Exercise stress echo. 81-year-old man with a history of coronary artery disease. Stress protocol: Resting EKG demonstrates normal sinus rhythm with a rate of 67 bpm normal inter vals are noted resting blood pressure is 126/64 mmHg. The patient exercised according to regul ar Bull protocol for total duration of 6 minutes. Patient completed stage II of the Bull protocol. The maximum heart rate attained was 134 bpm which was 96% of max impacted heart rate the maximum workload was 7 metabolic equivalents. At rest there were no ST or T wave changes noted suggest ischemia and at peak exercise upsloping ST changes were noted he did not meet the criteria for ische hector. No clinical angina was noted. Test was terminated due to the target heart rate being achiev ed. The peak blood pressure is 154/62 which was a good blood pressure response to exercise. Stress echocardiogram. Stress echocardiographic images were obtained with and w ithout Definity enhancement. The baseline ejection fraction was 60% improving to a peak of 70%. No wall motion abnormalities were noted and there was thickening of all ayala and reduction of left ventricular cavity size. Conclusion: Normal exercise stress echo with no evidence of ischemia at a moderate workload . Preserved ejection fraction. Ordering Physician: Eugene Monson Referring Physician: Eugene Monson Performed By: Shawn Carrillo RCS
== END | disposition home or self-care (01) ==
PROVIDERS: PCP Family Medicine; Referring Provider Internal Medicine Cardiovascular Disease; Visit Provider Internal Medicine Cardiovascular Disease
DX: I10 Essential (primary) hypertension (principal); I25.10 Atherosclerotic heart disease of native coronary artery without angina pectoris
CPT/HCPCS: 93017; 93350; Q9957; A4216; C8928

== ENCOUNTER → 2021-12-03 | Outpatient (CLI) | payer MEDICARE, OTHER, SELFPAY ==
[2021-12-03 11:11] LABS: Absolute Lymphocyte Count 1.43 X10^3/uL (0.83-4.51); Absolute Neutrophil Count 2.7 X10^3/uL (2.0-7.7); Basophil# 0.04 X10^3/uL; Basophil% 0.8 % (0-1); Hematocrit 34.7 % (40-54); Hemoglobin 11.3 g/dL (13.0-16.5); Lymphocyte # 1.43 X10^3/ul (0.83-4.51); Lymphocyte % 28.4 % (19-41); Mean Corp Hgb Conc 32.6 g/dL (32-36); Mean Corpuscular Hgb 30.3 pg (27.0-32.0); Mean Platelet Vol. 10.5 fl (6.2-12.0); Monocyte# 0.67 X10^3/uL; Monocyte% 13.3 % (0-10); NRBC Flagged by Analyzer 0 % (0-5); Neutrophil # 2.68 X10^3/uL (2.7-7.7); Neutrophil % 53.3 % (47-70); Platelet Count 191 K/mm3 (150-450); RBC Distribution Width CV 13.6 % (11.6-14.6); RBC Distribution Width SD 46.2 fl (35.1-43.9); RET-HE 32.9 pg (30-35); Red Blood Count 3.73 M/mm3 (4.6-6.2); Reticulocyte Count 1.27 % (0.5-1.5)
[2021-12-03 11:46] LABS: Ferritin 211 ng/mL (26-388); Iron 53 ug/dL (65-175); Iron Binding Capacity,Total 247 ug/dL (250-450)
== END | disposition home or self-care (01) ==
PROVIDERS: PCP Family Medicine; Referring Provider Nurse Practitioner Adult Health; Visit Provider Nurse Practitioner Adult Health
DX: D64.9 Anemia, unspecified (principal); I48.0 Paroxysmal atrial fibrillation
CPT/HCPCS: 36415; 82728; 83540; 83550; 85025; 85045

== ENCOUNTER → 2021-12-11 | Outpatient (CLI) | payer MEDICARE, OTHER, SELFPAY ==
[2021-12-13 16:09] LABS: Carbohydrate Ag 19-9 2261 4 U/mL (0-35)
== END | disposition home or self-care (01) ==
LOC: LAB 12:18
PROVIDERS: PCP Family Medicine; Referring Provider Nurse Practitioner Adult Health; Visit Provider Nurse Practitioner Adult Health
DX: Z87.19 Personal history of other diseases of the digestive system (principal)
CPT/HCPCS: 36415; 86301

== ENCOUNTER → 2021-12-31 | Outpatient (CLI) | payer MEDICARE, OTHER, SELFPAY ==
--- NOTE | 2021-12-31 09:24 | RAD_ITS ---
STUDY: X-RAY - ABDOMEN/PELVIS REASON FOR EXAM: Male, 81 years old. Possible retained pill cam. TECHNIQUE: Single AP view of the abdomen / pelvis. COMPARISON: CT of the abdomen and pelvis dated 09/07/2020. FINDINGS: Normal visualized lung bases. There is an unremarkable bowel gas pattern. There is no demonstrated free abdominal air. The visualized liver, spleen and kidneys are grossly normal in size and morphology. Cholecystectomy clips. Clips in the central and lower portion of the pelvis. Osteopenia with dextroscoliosis and thoracic and lumbosacral spondylosis. Mild arthrosis of both hips. RAD/Abdomen Single View IMPRESSION: No acute abnormality. Electronically Signed: Trey Pina, at 10:34 EDT ,
== END | disposition home or self-care (01) ==
LOC: RAD 09:14
PROVIDERS: PCP Family Medicine; Referring Provider Internal Medicine Gastroenterology; Visit Provider Internal Medicine Gastroenterology
DX: D64.9 Anemia, unspecified (principal)
CPT/HCPCS: 74018

== ENCOUNTER → 2022-02-01 | Outpatient (CLI) | payer MEDICARE, OTHER, SELFPAY ==
[2022-02-01 15:44] LABS: PSA,Total- Diagnostic < 0.01 ng/mL (0.0-4.0)
== END | disposition home or self-care (01) ==
LOC: BIMLAB 13:00
PROVIDERS: PCP Family Medicine; Referring Provider Registered Nurse; Visit Provider Registered Nurse
DX: C61 Malignant neoplasm of prostate (principal)
CPT/HCPCS: 36415; 84153

== ENCOUNTER 2022-07-27 09:35 | Emergency (ER) | payer MEDICARE, OTHER, SELFPAY ==
[2022-07-27 09:36] VITALS: BP 152/77; PULSE 87; RESP 18; TEMP 36.6; O2SAT 96; BMI 28.8
--- NOTE | 2022-07-27 10:05 | CT_ITS ---
INDICATION: Problems with balance x3 months EXAMINATION: CT BRAIN - CT Head or Brain W/O Contrast Injection TECHNIQUE: Multiple axial images were obtained of the head without intravenous contrast. A radiation dose optimization technique was used for this scan. IV Contrast dosage and agent: None. COMPARISON: FINDINGS: BRAIN PARENCHYMA: No intra- or extra-axial hemorrhage. No evidence of acute infarct. No intracranial mass or mass effect. There is preservation of the wallace/white matter interface. Posterior fossa structures are unremarkable. CSF SPACES: Appropriate for age. No hydrocephalus. Basal cisterns are patent. CALVARIUM, SKULL BASE, PARANASAL SINUSES AND MASTOID AIR CELLS: Clear. No discrete lytic or blastic abnormalities. ORBITS: Both globes, extraocular muscles, optic nerves and retrobulbar fat appear unremarkable. CT/Brain/Head without Contrast IMPRESSION: No acute intracranial process. Electronically Signed: Della Mancia MD at 10:50 EST ,
--- NOTE | 2022-07-27 10:28 | EX.ED.DYSGE1 ---
HPI History of Present Illness Chief Complaint: Dizziness Detail of Chief Complaint: Dizziness and formication anterior left leg Informant: patient and spouse/S.O. Onset/Context/Timing Onset: Month(s) (The dizziness has been present since April. The formication has been present for 1 week) Context: Sudden Onset (With regards to formication) and - (Does not recall regarding dizziness) Timing: Continuous (The dizziness is continuous) and Intermittent (Formication) Quality: Problems with balance and sensation of bugs crawling under his skin Location: Balance and anterior left neck Current Severity: Mild Maximum Severity: Moderate Worsened by: Nothing Relieved by: Nothing Associated Symptoms Associated Symptoms: None Narrative Narrative: Patient presents with 2 complaints. He has had dizziness since April. He describes dizziness problems with his coordination and balance. He has not noted any problems with fine motor skills. He denies headache. He denies head trauma. He is on an anticoagulant. He denies double vision, blurred vision or change in vision. He denies ringing in his ears or decreased hearing. He denies trouble with speech or swallowing. He denies paresthesia, anesthesia or motor weakness in his upper or lower extremities. The sensation of bugs crawling under his skin has been intermittent for the past week. He nor his have noted a change in his voice. He has had no difficulty swallowing liquids or solids. He denies cardiac or respiratory symptoms. He denies GI symptoms. states several years ago he had studies of the vessels in his neck and was told he has some narrowing. Prior similar symptoms: No Recent Illness/Hospitalization: No [facility], [facility] Medical History Anemia Basal cell carcinoma BPH (benign prostatic hyperplasia) Dupuytren contracture Epistaxis Essential (primary) hypertension GERD (gastroesophageal reflux disease) History of pancreatitis Hyperlipidemia Hypothyroidism Idiopathic acute pancreatitis Non-sustained ventricular tachycardia Paroxysmal atrial fibrillation Prostate cancer Sinus pause Syncope (03/2019) Home Medications simvastatin 20 mg tablet 20 mg PO QHS cholesterol 04/24/19 [History Last Taken 09/06/20] omeprazole 20 mg capsule,delayed release 40 mg PO QHS reflux 04/25/19 [History Last Taken 09/06/20] apixaban 5 mg tablet 5 mg PO BID blood thinner 04/02/20 [History Last Taken 09/07/20] lisinopril 20 mg tablet 20 mg PO QHS bp 04/02/20 [History Last Taken 09/06/20] hydrochlorothiazide 25 mg tablet 25 mg PO QHS bp ##0 09/10/20 [Rx Last Taken 09/06/20] levothyroxine 125 mcg tablet 125 mcg PO DAILY 10/01/20 [History Last Taken Unknown] B-complex with vitamin C 1 cap PO DAILY 10/05/21 [History Last Taken Unknown] cholecalciferol (vitamin D3) 25 mcg (1,000 unit) capsule 25 mcg PO DAILY 10/05/21 [History Last Taken Unknown] melatonin 5 mg tablet 5 mg PO HS PRN 10/05/21 [History Last Taken Unknown] multivitamin 1 tab PO DAILY 10/05/21 [History Last Taken Unknown] Allergy/AdvReac Type Severity Reaction Status Date / Time cephalexin AdvReac diarrhea Verified 07/27/22 09:38 niacin AdvReac PT UNSURE Verified 07/27/22 09:38 OF REACTION Family History Father Heart disease CAD (coronary artery disease) Sister Heart disease SVT Mother CVA (cerebral vascular accident) Daughter Heart disease SVT Surgical History H/O blepharoplasty H/O hemorrhoidectomy H/O knee surgery H/O umbilical hernia repair History of cataract surgery History of cholecystectomy History of ventral hernia repair Hx of appendectomy S/P cystourethroscopy with dilation of urethral stricture Social History (Updated 07/27/22 @ 10:[address] Golden Prieto MD) household members: spouse Smoking Status: Former smoker quit date: 12/02/1964 alcohol intake: never ROS ROS ED Constitutional Constitutional ED: Denies chills, fever(s), subjective, sweats or weight loss Eyes Eyes: Denies blurry vision, change in vision or diplopia ENT ENT ED: Reports other Details: Per HPI narrative ; Denies ear pain, rhinorrhea or sore throat Cardiovascular Cardiovascular: Denies chest pain, orthopnea, palpitations, paroxysmal nocturnal dyspnea or racing heartbeat Respiratory/Chest Respiratory/Chest: Denies cough, dyspnea, dyspnea on exertion, orthopnea or paroxysmal nocturnal dyspnea Gastrointestinal Gastrointestinal: Denies abdominal pain, constipation, diarrhea, melena, nausea or vomiting Genitourinary Genitourinary ED: Denies dysuria, hematuria or urinary frequency Musculoskeletal Musculoskeletal: Denies arthralgias, back pain, myalgias or neck pain Integumentary Denies abscess, Abrasions or rash Neurologic Neurologic: Reports other Details: Per HPI narrative ; Denies headache(s), paresthesias or weakness Endocrine Endocrinology: Denies cold intolerance Hematologic/Lymphatic Hematologic/Lymphatic: Reports systems reviewed and no addt'l complaints, except as documented EXAM Physical Exam Const Vital Signs: 07/27/22 09:36 07/27/22 10:07 07/27/22 11:36 Temperature 97.8 F Temperature Source Temporal Pulse Rate 87 66 Respiratory Rate 18 18 Respiratory Effort Normal Non-Labored Respiratory Pattern Normal Blood Pressure 152/77 H Blood Pressure Mean 102 Pulse Ox 96 95 Oxygen Delivery Method Room Air Room Air Positive well nourished and well developed General Appearance ED: well developed and NAD; Negative for cyanotic, diaphoretic or pallor HEENT Reports moist mucous membranes HEENT Narrative: Head is atraumatic normocephalic. Ears normal. Nares patent. Uvula is midline. Posterior pharynx without erythema or exudate. There is no deviation of the tongue with protrusion. Eyes PERRL and EOMs intact bilaterally Eyes Narrative: There is no nystagmus. There is no APD. Funduscopic exam reveals no papilledema Neck no lymphadenopathy, supple and no JVD Neck Narrative: There are no carotid bruits noted on the right or left. Chest Wall inspection of chest normal and palpation of chest normal Resp normal respiratory effort and clear to auscultation bilaterally Cardio regular rate, regular rhythm, S1 normal heart sound, S2 normal heart sound and no murmurs GI normal to inspection, nondistended, normoactive bowel sounds, non-tender, non-distended and no masses; Negative for hepatosplenomegaly Back/Spine no CVA tenderness Extremity normal to inspection General Extremety ED: Negative for edema or tenderness General Extremity: Negative for edema Neuro oriented x3, CN's II-XII intact bilaterally and no sensory deficits noted Neuro Narrative: There is no dysmetria. Romberg with eyes open and close normal. Gait was observed and is not ataxic. Able to walk on heels and toes. Tandem gait is normal. The eye skew test is negative. The hint test is negative. There is no clonus or Babinski sign noted Sensorium / Orientation: alert Motor Exam: strength 5/5 throughout Psych mental status grossly normal Skin no rashes or lesions noted, no wounds and skin turgor normal General Skin Exam: Negative for jaundice or pallor MDM MDM MDM Narrative Medical decision making narrative: With symptoms of dizziness need to evaluate for possible posterior circulatory stroke. Since this has been present for 3 months we will obtain a CAT scan also since patient is on anticoagulant he may have had an insignificant head trauma resulting in bleed. CBC was obtained to assess for anemia and platelet count. Basic metabolic panel to assess electrolytes. Since patient has a normal neck exam with midline trachea no stridor and no abnormal findings with no dysphonia no imaging was obtained. Uncertain what is causing his intermittent complaint of formication. Old records were reviewed. He is seen by cardiology for paroxysmal atrial fibrillation and reason he is on anticoagulant. Lab Data Attestation: I reviewed the patient's lab results. Lab results narrative: CBC is unremarkable. BMP reveals elevated creatinine of 1.62. His last creatinine was elevated at 1.58. GFR is 44. CO2 anion gap is normal. Glucose is slightly evaded 1 3. Labs: Laboratory Results - last 24 hr 07/27/22 07/27/22 10:12 10:12 WBC 5.6 RBC 4.37 L Hgb 13.2 Hct 40.3 MCV 92.2 MCH 30.2 MCHC 32.8 RDW Std Deviation 46.7 H RDW Coeff of Ksenia 13.7 Plt Count 227 MPV 10.2 Immature Gran % (Auto) 0.400 Neut % (Auto) 47.8 Lymph % (Auto) 36.0 [place] % (Auto) 11.1 H Eos % (Auto) 3.8 Baso % (Auto) 0.9 Absolute Neuts (auto) 2.7 Absolute Lymphs (auto) 2.01 Nucleated RBC % 0 Sodium 139 Potassium 3.8 Chloride 104 Carbon Dioxide 28.0 Anion Gap 7 BUN 24 H Creatinine 1.62 H Estim Creat Clear Calc 36.30 Est GFR (MDRD) Af Amer 53 L Est GFR (MDRD) Non-Af 44 L BUN/Creatinine Ratio 14.8 Glucose 123 H Calcium 9.1 Radiography Diagnostic Testing: Clinical Impression(s) from Imaging Studies Brain CT 07/27/22 10:05 IMPRESSION: No acute intracranial process. Electronically Signed: Della Mancia MD at 10:50 EST , Treatment and Re-Evaluation :: Patient was informed of his results. He was informed of the has seen Dr. Mcgregor in the past. He was informed that there was no evidence of stroke on the CAT scan or hemorrhage. His blood work was unchanged from prior. Discharge Plan Triage Chief Complaint: Dizziness ED Provider: Golden Prieto Dx/Rx/DC Orders Clinical Impression: Vertigo, Hyperlipidemia, Essential (primary) hypertension, Formication Instructions: ED Vertigo, Unspecified, ED Paraesthesias Prescriptions: No Action omeprazole 20 mg capsule,delayed release(DR/EC) 40 mg PO QHS simvastatin 20 mg tablet 20 mg PO QHS levothyroxine 125 mcg tablet 125 mcg PO DAILY melatonin 5 mg tablet 5 mg PO HS PRN cholecalciferol (vitamin D3) 25 mcg (1,000 unit) capsule 25 mcg PO DAILY multivitamin Tablet 1 tab PO DAILY B-complex with vitamin C Capsule 1 cap PO DAILY lisinopril 20 MG tablet 20 mg PO QHS apixaban 5 MG tablet 5 mg PO BID Label Comments: stop 3 days preop as directed hydrochlorothiazide 25 MG tablet 25 mg PO QHS Qty: 0 0RF Rx Instructions: Hold for 5 days Primary Care Provider: Stoney Erzao Referrals: Bud German MD [Med Staff - Active Staff] - 1 Week Stoney Erazo DO [Primary Care Provider] - 5-7 Days Disposition Disposition: Home, Self Care
[2022-07-27 10:36] LABS: Absolute Lymphocyte Count 2.01 X10^3/uL (0.83-4.51); Absolute Neutrophil Count 2.7 X10^3/uL (2.0-7.7); Basophil# 0.05 X10^3/uL; Basophil% 0.9 % (0-1); Eosinophil# 0.21 X10^3/uL; Eosinophils% 3.8 % (0-5); Hematocrit 40.3 % (40-54); Hemoglobin 13.2 g/dL (13.0-16.5); Lymphocyte # 2.01 X10^3/ul (0.83-4.51); Mean Corp Hgb Conc 32.8 g/dL (32-36); Mean Corpuscular Hgb 30.2 pg (27.0-32.0); Mean Corpuscular Volume 92.2 fL (80-94); Mean Platelet Vol. 10.2 fl (6.2-12.0); Monocyte# 0.62 X10^3/uL; Monocyte% 11.1 % (0-10); NRBC Flagged by Analyzer 0 % (0-5); Neutrophil # 2.67 X10^3/uL (2.7-7.7); Neutrophil % 47.8 % (47-70); Platelet Count 227 K/mm3 (150-450); RBC Distribution Width CV 13.7 % (11.6-14.6); RBC Distribution Width SD 46.7 fl (35.1-43.9); Red Blood Count 4.37 M/mm3 (4.6-6.2); White Blood Count 5.6 K/mm3 (4.4-11.0)
[2022-07-27 10:53] LABS: Anion Gap 7 (5-15); BUN 24 mg/dL (7-18); BUN/Creat Ratio 14.8 RATIO (10-20); Calcium,Total 9.1 mg/dL (8.5-10.1); Chloride 104 mmol/L (98-107); Creatinine, Serum 1.62 mg/dL (0.70-1.30); EST Glomerular Filtration Rate 44 mL/min (>60); Est Glom Filt Rate - Afr Amer 53 mL/min (>60); Glucose 123 mg/dL (74-106); Potassium 3.8 mmol/L (3.5-5.1); Sodium Level 139 mmol/L (136-145)
[2022-07-27 11:36] VITALS: PULSE 66; RESP 18; O2SAT 95
[2022-07-27 12:46] VITALS: BP 120/74; PULSE 71; RESP 16; O2SAT 98
== END 2022-07-27 12:47 | disposition home or self-care (01) ==
PROVIDERS: Emergency Provider Emergency Medicine; PCP Family Medicine; Visit Provider Emergency Medicine
DX: R42 Dizziness and giddiness (principal); I48.0 Paroxysmal atrial fibrillation; I10 Essential (primary) hypertension; R20.2 Paresthesia of skin; M48.02 Spinal stenosis, cervical region; E78.5 Hyperlipidemia, unspecified; Z87.891 Personal history of nicotine dependence; Z79.01 Long term (current) use of anticoagulants
CPT/HCPCS: 70450; 80048; 85025; 99285; A4216

== ENCOUNTER → 2022-08-02 | Outpatient (CLI) | payer MEDICARE, OTHER, SELFPAY ==
[2022-08-02 11:06] LABS: PSA,Total- Diagnostic 0.03 ng/mL (0.0-4.0)
== END | disposition home or self-care (01) ==
LOC: LAB 09:59
PROVIDERS: PCP Family Medicine; Referring Provider Urology; Visit Provider Urology
DX: C61 Malignant neoplasm of prostate (principal)
CPT/HCPCS: 36415; 84153; 84403

== ENCOUNTER → 2022-08-05 | Outpatient (CLI) | payer MEDICARE, OTHER, SELFPAY ==
--- NOTE | 2022-08-05 12:55 | CDU_ITS ---
Reason For Study: Dizziness Rt. Velocities/BP Lt. Velocities/BP Prox CCA 117/24 cm/sec. Prox CCA 104/22 cm/sec. Mid CCA 112/25 cm/sec. Mid CCA 116/23 cm/sec. Dist CCA 86/20 cm/sec. Dist CCA 95/24 cm/sec. Prox ICA 65/14 cm/sec. Prox ICA 104/22 cm/sec. Mid ICA 67/20 cm/sec. Mid ICA 113/27 cm/sec. Dist ICA 85/26 cm/sec. Dist ICA 67/24 cm/sec. Rt. ICA/CCA = 0.8. Lt. ICA/CCA = 1.0. Prox ECA 83/11 cm/sec. Prox ECA 104/13 cm/sec. Rt. Vert. 57/19 cm/sec. Lt. Vert. 54/17 cm/sec. Right Extracranial There is intimal thickening but no significant atherosclerotic plaque noted in the right common carotid artery. There is heterogeneous, irregular atherosclerotic plaque noted in the right internal carotid artery. There is heterogeneous, smooth atherosclerotic plaque noted in the right external carotid artery. Antegrade flow is noted in the right vertebral artery. Left Extracranial There is intimal thickening but no significant atherosclerotic plaque noted in the left common carotid artery. There is heterogeneous, irregular atherosclerotic plaque noted in the left internal carotid artery. There is heterogeneous, irregular atherosclerotic plaque noted in the left external carotid artery. Antegrade flow is noted in the left vertebral artery. VL/Carotid Duplex Ultrasound Interpretation Summary Mild (<50%) stenosis right extracranial internal carotid. Mild (<50%) stenosis left extracranial internal carotid. Patent and antegrade vertebrals bilaterally. Ordering Physician: SUKH BREWER Referring Physician: Stoney Erazo/Eugene Monson Performed By: Viviane Loco, RDCS, RVT
== END | disposition home or self-care (01) ==
PROVIDERS: PCP Family Medicine; Referring Provider Internal Medicine Cardiovascular Disease
DX: R42 Dizziness and giddiness (principal)
CPT/HCPCS: 93880

== ENCOUNTER → 2023-02-14 | Outpatient (CLI) | payer MEDICARE, OTHER, SELFPAY ==
[2023-02-14 11:15] LABS: PSA,Total- Diagnostic 0.08 ng/mL (0.0-4.0)
== END | disposition home or self-care (01) ==
PROVIDERS: PCP Family Medicine; Referring Provider Registered Nurse; Visit Provider Registered Nurse
DX: C61 Malignant neoplasm of prostate (principal)
CPT/HCPCS: 36415; 84153

== ENCOUNTER 2023-04-17 20:19 | Observation (INO) | payer MEDICARE, OTHER, SELFPAY ==
[2023-04-17 20:19] VITALS: BP 109/78; PULSE 88; RESP 17; O2SAT 94
[2023-04-17 20:22] VITALS: BP 131/78; PULSE 96; RESP 18; TEMP 37; O2SAT 87; BMI 20.2
[2023-04-17 21:22] VITALS: BP 125/78; PULSE 93; RESP 20; O2SAT 94
--- NOTE | 2023-04-17 21:32 | EKG12_ITS ---
Test Reason : DYSRHYTHMIA Blood Pressure : / mmHG Vent. Rate : 091 BPM Atrial Rate : 000 BPM P-R Int : 000 ms QRS Dur : 092 ms QT Int : 354 ms P-R-T Axes : 000 004 029 degrees QTc Int : 435 ms Atrial fibrillation Cannot rule out Inferior infarct , age undetermined Abnormal ECG Confirmed by SIMONE MCCLURE, NAVA ([id number]), supervising film or videotape editor DREW CHOW ([id number]) on 04/18/2023 7:53:45 AM Referred By: CRUZITO Confirmed By:NAVA NICHOLS MD
--- NOTE | 2023-04-17 21:32 | CT_ITS ---
STUDY: CT BRAIN WITHOUT CONTRAST REASON FOR EXAM: Male, 82 years old. seizure tonight RADIATION DOSAGE (If Supplied By Facility): CTDIvol = ( 44.99 ) mGy, DLP = ( 846.73 ) mGycm TECHNIQUE: Transaxial CT imaging of the brain was performed without administration of intravenous contrast material. Individualized dose optimization techniques were used for this CT. COMPARISON: No relevant priors. FINDINGS: Normal soft tissue structures. Normal calvarium. Calcific plaquing cavernous carotids. Mild atrophy and periventricular white matter ischemic changes. Normal basal ganglia and thalami. Normal brainstem. Normal cerebellum. There is no intracranial hemorrhage. There are no findings of an acute ischemic infarction. Normal visualized paranasal sinuses. Postsurgical changes of the orbits. No significant change since prior study CT/Brain/Head without Contrast IMPRESSION: Mild atrophy and periventricular white matter ischemic changes. No mass or acute bleed.. MRI would be helpful for further evaluation if clinically indicated Electronically Signed: Scotty Rosa MD at 22:02 EST Reading Location ID and State: [facility] / [place] Tel , Service support ,
--- NOTE | 2023-04-17 21:33 | EDS_ITS ---
HPI History of Present Illness Chief Complaint: Seizure Informant: patient and spouse/S.O. Onset/Context/Timing Onset: Today and Hours Context: Sudden Onset Timing: Intermittent Current Severity: Gone Maximum Severity: Severe Narrative Narrative: 82-year-old male history of anemia, V. tach, A-fib, prostate cancer with chronic anticoagulation on Eliquis. Has been feeling well last several days. Tonight at home he and his are sitting in chairs. She noticed he became unresponsive and slumped over. She thought he was having a seizure when he was shaking. And she began CPR. She did not think to check pulse prior to beginning CPR. She did CPR for 5 to 10 minutes until the squad arrived. Currently the patient is awake and alert without complaints. He denies any complaints prior to the event. He has never had a seizure before. Prior similar symptoms: No Recent Illness/Hospitalization: [facility] Medical History Anemia Basal cell carcinoma BPH (benign prostatic hyperplasia) Dupuytren contracture Epistaxis Essential (primary) hypertension GERD (gastroesophageal reflux disease) History of pancreatitis Hyperlipidemia Hypothyroidism Idiopathic acute pancreatitis Non-sustained ventricular tachycardia Paroxysmal atrial fibrillation Prostate cancer Sinus pause Syncope (03/2019) Home Medications simvastatin 20 mg tablet 20 mg PO QHS cholesterol 04/24/19 [History Last Taken 09/06/20] apixaban 5 mg tablet 5 mg PO BID blood thinner 04/02/20 [History Last Taken 09/07/20] lisinopril 20 mg tablet 20 mg PO QHS bp 04/02/20 [History Last Taken 09/06/20] hydrochlorothiazide 25 mg tablet 25 mg PO QHS bp ##0 09/10/20 [Rx Last Taken 09/06/20] levothyroxine 125 mcg tablet 125 mcg PO DAILY 10/01/20 [History Last Taken Unknown] cholecalciferol (vitamin D3) 25 mcg (1,000 unit) capsule 25 mcg PO DAILY 10/05/21 [History Last Taken Unknown] multivitamin 1 tab PO DAILY 10/05/21 [History Last Taken Unknown] omeprazole 20 mg capsule,delayed release 40 mg PO BID reflux 08/02/22 [History Last Taken Unknown] Allergy/AdvReac Type Severity Reaction Status Date / Time cephalexin AdvReac diarrhea Verified 11/27/23 20:22 niacin AdvReac PT UNSURE Verified 04/17/23 20:22 OF REACTION Family History Father Heart disease CAD (coronary artery disease) Sister Heart disease SVT Mother CVA (cerebral vascular accident) Daughter Heart disease SVT Surgical History H/O blepharoplasty H/O hemorrhoidectomy H/O knee surgery H/O umbilical hernia repair History of cataract surgery History of cholecystectomy History of ventral hernia repair Hx of appendectomy S/P cystourethroscopy with dilation of urethral stricture Social History household members: spouse Smoking Status: Former smoker quit date: 12/02/1964 alcohol intake: never substance use type: does not use caffeine: Yes Type: coffee Number of servings: 3 ROS ROS ED ROS Narrative Denies recent illness. Review of Systems ROS Unobtainable: Denies due to encephalopathy Constitutional Constitutional ED: Denies chills or fever(s) Eyes Eyes: Denies blurry vision ENT ENT ED: Denies ear pain Cardiovascular Cardiovascular: Denies chest pain or palpitations Respiratory/Chest Respiratory/Chest: Denies cough or dyspnea Gastrointestinal Gastrointestinal: Denies abdominal pain, constipation, diarrhea, melena, nausea or vomiting Genitourinary Genitourinary ED: Denies dysuria or hematuria Musculoskeletal Musculoskeletal: Denies arthralgias or back pain Integumentary Denies abscess Neurologic Neurologic: Denies headache(s) Psychiatric Psychiatric: Denies anxiety Endocrine Endocrinology: Denies cold intolerance Hematologic/Lymphatic Hematologic/Lymphatic: Reports none Allergic/Immunologic Allergic/Immunologic ED: Denies mouth swelling, tongue swelling or urticaria EXAM Physical Exam Narrative Exam Narrative: Well-appearing 82-year-old male. Vital signs stable afebrile. His pulse ox initially was 87% on 2 L 94%. He does not look septic toxic. He is in no distress. H EENT exam unremarkable. Neck nontender no JVD. Lungs clear to auscultation bilaterally. Heart A-fib rate about 90. No murmur. Chest wall nontender. No ecchymosis or bruising. No crepitance or subcu air. No bony deformities. Abdomen is soft and nontender. Moving all 4 extremities. Nontender no edema. 5 out of 5 consultant in ergonomics and safety strength. Dorsi plantarflexion intact. Neurologically is awake alert. He is answering questions following commands. He is amnestic to the event. He has no focal neurological deficits at this time. Const Vital Signs: 04/17/23 20:22 04/17/23 20:19 04/17/23 21:22 Temperature 98.6 F Temperature Source Oral Pulse Rate 96 88 93 Respiratory Rate 18 17 20 H Blood Pressure 131/78 H 109/78 125/78 H Blood Pressure Mean 95 88 93 Pulse Ox 87 94 94 Oxygen Delivery Method Room Air Nasal Cannula Room Air Oxygen Flow Rate (L/min) 2 04/17/23 21:42 Temperature Temperature Source Pulse Rate Respiratory Rate Blood Pressure Blood Pressure Mean Pulse Ox Oxygen Delivery Method Room Air Oxygen Flow Rate (L/min) Positive well nourished and well developed; Negative for obese, cachectic, contractures or unkempt General Appearance ED: well developed and NAD; Negative for unkempt, cachectic, contractures, cyanotic, diaphoretic or pallor Nutritional Appearance: Negative for cachectic or obese HEENT Reports moist mucous membranes; Denies dry mucous membranes Negative for trauma or tenderness Mouth ED: No dry mucous membranes Mouth: No dry mucous membranes Eyes PERRL and EOMs intact bilaterally General Eye ED: Negative for pale conjunctiva, scleral icterus or other Neck no lymphadenopathy, supple and no JVD General: Negative for tenderness Lymph Lymphatic: Negative for other Chest Wall inspection of chest normal and palpation of chest normal Chest: Negative for other Resp normal respiratory effort and clear to auscultation bilaterally Effort and Inspection: Negative for retractions Auscultation: Negative for rales, rhonchi or wheezes Cardio regular rate; Negative for regular rhythm Rhythm: abnormal rhythm GI normal to inspection, nondistended, normoactive bowel sounds, non-tender, non- distended and no masses Inspection: Negative for abdominal distention Auscultation: normoactive bowel sounds Palpation: soft; Negative for tender or guarding Back/Spine no CVA tenderness General Back: Negative for CVA tenderness or other Cervical Spine: Negative for cervical spine tenderness Thoracic Spine / Upper Back: Negative for thoracic spinal tenderness Lumbar Spine / Lower Back: Negative for lumbar spinal tenderness Extremity normal to inspection General Extremety ED: Negative for edema or tenderness General Extremity: Negative for edema Neuro oriented x3 and CN's II-XII intact bilaterally Sensorium / Orientation: Negative for orientation impaired, lethargic or stuporous Motor Exam: strength 5/5 throughout; Negative for general weakness or strength abnormal Psych mental status grossly normal Appearance: Negative for unkempt Attitude: No agitated Mood & Affect: Negative for depressed, anxious or tearful Skin no rashes or lesions noted, no wounds and skin turgor normal General Skin Exam: elasticity normal; Negative for jaundice or pallor Lesions: No lesion noted Rashes: No rashes noted Trauma: Negative for abrasion Wounds: Negative for wounds noted MDM MDM MDM Narrative Medical decision making narrative: 82-year-old male possible seizure at home tonight and/or syncopal event. performed 5 to 10 minutes of CPR. Currently his exam is benign. This may have been a seizure. Could be a dysrhythmia. Versus other etiologies. Cardiac workup along with a CT of his brain. Repeat exam patient is doing well at 10:30 PM. He is awake and alert. He is acting appropriately. He has an unremarkable neurologic exam. I went over all the test results of both he and his family. He has acute on chronic renal insufficiency other than that his labs are pretty unremarkable. I do not know if he had a syncopal event tonight or if he had a dysrhythmia or he had a true seizure. In light that he is 82 he had some type of significant event and his performed CPR I will speak to the hospitalist about admission for further monitoring. At this time he is very stable. History & Record Review Discussion w/independent historian: Patient Additional record(s) reviewed:: Prior inpatient record, Prior outpatient record, Prior ED visit and Prior labs Lab Data Attestation: I reviewed the patient's lab results. Lab results narrative: CBC shows a normal white count of 7. H&H 13 and 42. Platelets 234. Electrolytes show a gap of 7 BUN and creatinine 28 and 1.75. He does have renal insufficiency this is slightly worse. Glucose 123. Troponin is normal at 8. Labs: Laboratory Results - last 24 hr 04/17/23 20:35 WBC 7.3 RBC 4.65 Hgb 13.7 Hct 42.3 MCV 91.0 MCH 29.5 MCHC 32.4 RDW Std Deviation 47.1 H RDW Coeff of Ksenia 14.0 Plt Count 234 MPV 11.4 Immature Gran % (Auto) 0.400 Neut % (Auto) 48.7 Lymph % (Auto) 40.0 [place] % (Auto) 8.8 Eos % (Auto) 1.4 Baso % (Auto) 0.7 Absolute Neuts (auto) 3.5 Absolute Lymphs (auto) 2.91 Nucleated RBC % 0 Sodium 141 Potassium 4.0 Chloride 106 Carbon Dioxide 28.0 Anion Gap 7 BUN 28 H Creatinine 1.75 H Estim Creat Clear Calc 29.37 Est GFR (MDRD) Af Amer 48 L Est GFR (MDRD) Non-Af 40 L BUN/Creatinine Ratio 16.0 Glucose 123 H Calcium 9.0 Troponin I High Sens 8 Radiography Chest X-Ray - ED: 1 View, Read by ED Physician, Read by Radiologist, Heart, Lungs, Mediastinum, Bony Structures, No Acute Disease and Chronic Changes Diagnostic Testing: Clinical Impression(s) from Imaging Studies Brain CT 04/17/23 21:32 IMPRESSION: Mild atrophy and periventricular white matter ischemic changes. No mass or acute bleed.. MRI would be helpful for further evaluation if clinically indicated Electronically Signed: Scotty Rosa MD at 22:02 EST , Chest X-Ray 04/17/23 21:50 IMPRESSION: Mild discoid atelectasis or scarring in the left lower lobe Electronically Signed: Scotty Rosa MD at 22:12 EST , Chest x-ray, portable, single view, interpreted by myself shows no acute abnormality. Normal cardiac silhouette. No obvious broken ribs. No pneumothorax. No infiltrate. Also read by the radiologist and agrees. Rhythm Strip Rhythm Strip: A-fib Rate: 91 Ectopy: None EKG Initial EKG: Attestation: I personally reviewed and interpreted this EKG as follows: Interpretation: Atrial Fibrillation Comments: Atrial fibrillation rate of 91 no acute signs of UT or ischemia. Discharge Plan Triage Chief Complaint: Seizure Other Complaint: Alt LOC ED Provider: Michael Hendricks Dx/Rx/DC Orders Clinical Impression: Chronic anticoagulation, Chronic kidney disease, Seizure, Chronic a-fib Prescriptions: No Action omeprazole 20 mg capsule,delayed release(DR/EC) 40 mg PO BID simvastatin 20 mg tablet 20 mg PO QHS levothyroxine 125 mcg tablet 125 mcg PO DAILY cholecalciferol (vitamin D3) 25 mcg (1,000 unit) capsule 25 mcg PO DAILY multivitamin Tablet 1 tab PO DAILY lisinopril 20 MG tablet 20 mg PO QHS apixaban 5 MG tablet 5 mg PO BID Patient Comments: stop 3 days preop as directed hydrochlorothiazide 25 MG tablet 25 mg PO QHS Qty: 0 0RF Rx Instructions: Hold for 5 days Primary Care Provider: Stoney Erazo Referrals: Stoney Erazo DO [Primary Care Provider] - Disposition Disposition: Acute Care [facility]
[2023-04-17 21:49] LABS: Absolute Lymphocyte Count 2.91 X10^3/uL (0.83-4.51); Absolute Neutrophil Count 3.5 X10^3/uL (2.0-7.7); Basophil# 0.05 X10^3/uL; Basophil% 0.7 % (0-1); Eosinophils% 1.4 % (0-5); Hematocrit 42.3 % (40-54); Hemoglobin 13.7 g/dL (13.0-16.5); Lymphocyte # 2.91 X10^3/ul (0.83-4.51); Mean Corp Hgb Conc 32.4 g/dL (32-36); Mean Corpuscular Hgb 29.5 pg (27.0-32.0); Mean Platelet Vol. 11.4 fl (6.2-12.0); Monocyte# 0.64 X10^3/uL; Monocyte% 8.8 % (0-10); NRBC Flagged by Analyzer 0 % (0-5); Neutrophil # 3.54 X10^3/uL (2.7-7.7); Neutrophil % 48.7 % (47-70); Platelet Count 234 K/mm3 (150-450); RBC Distribution Width SD 47.1 fl (35.1-43.9); Red Blood Count 4.65 M/mm3 (4.6-6.2); White Blood Count 7.3 K/mm3 (4.4-11.0)
--- NOTE | 2023-04-17 21:50 | RAD_ITS ---
STUDY: X-RAY CHEST REASON FOR EXAM: Male, 82 years old. chest pain TECHNIQUE: AP portable COMPARISON: None. FINDINGS: Mild discoid atelectasis or scarring in left lower lobe.. There is no demonstrated pleural abnormality. Normal size heart. Normal mediastinum and viral. Normal visualized pulmonary arteries. Tortuous mildly calcified aortic arch and descending thoracic aorta. Normal visualized thoracic spine. Normal visualized ribs, clavicles, and shoulders. Postsurgical changes within the upper abdomen.. RAD/Chest 1 View (Portable) IMPRESSION: Mild discoid atelectasis or scarring in the left lower lobe Electronically Signed: Scotty Rosa MD at 22:12 EST ,
[2023-04-17 22:07] LABS: Anion Gap 7 (5-15); BUN 28 mg/dL (7-18); Chloride 106 mmol/L (98-107); Creatinine, Serum 1.75 mg/dL (0.70-1.30); EST Glomerular Filtration Rate 40 mL/min (>60); Est Glom Filt Rate - Afr Amer 48 mL/min (>60); Estimated Creatinine Clearance 29.37 ml/min; Glucose 123 mg/dL (74-106); Sodium Level 141 mmol/L (136-145); Troponin-I HS (w/2H Reflex) 8 pg/mL (3.0-78.0)
[2023-04-17 22:58] VITALS: BP 118/71; PULSE 87; RESP 12; O2SAT 96
--- NOTE | 2023-04-17 23:04 | PCM.HP.STD ---
HPI - General General Date of Service: 04/17/23 Chief Complaint: seizure HPI Narrative NICOLLE KWOK, is a 82 M who presents with 30 second spell of shaking and then unresponsiveness that followed. Patient was up looking at his phone and he started having shaking of his upper extremities and then went unresponsive. His was concerned he had a seizure and called 911. 911 advised her to start CPR the did not advise her to check her pulse first. She commenced with CPR and EMS arrived and checked and verify that he did have a pulse. Patient remained unresponsive until he arrived in the emergency room. Patient has never had a seizure before never had any spells like this before. Has been no change in his medications, he sleeps roughly 8 hours a night though he does have to get up 2-3 times per night to urinate but otherwise sleeps sleeps well. Today, he did have full day where he did go to a and did do some other errands but nothing other jones out of the ordinary. [facility] Medical History Anemia Basal cell carcinoma BPH (benign prostatic hyperplasia) Dupuytren contracture Epistaxis Essential (primary) hypertension GERD (gastroesophageal reflux disease) History of pancreatitis Hyperlipidemia Hypothyroidism Idiopathic acute pancreatitis Non-sustained ventricular tachycardia Paroxysmal atrial fibrillation Prostate cancer Sinus pause Syncope (03/2019) Home Medications simvastatin 20 mg tablet 20 mg PO QHS cholesterol 04/24/19 [History Last Taken 09/06/20] apixaban 5 mg tablet 5 mg PO BID blood thinner 04/02/20 [History Last Taken 09/07/20] lisinopril 20 mg tablet 20 mg PO QHS bp 04/02/20 [History Last Taken 09/06/20] levothyroxine 125 mcg tablet 125 mcg PO DAILY 10/01/20 [History Last Taken Unknown] cholecalciferol (vitamin D3) 25 mcg (1,000 unit) capsule 25 mcg PO DAILY 10/05/21 [History Last Taken Unknown] multivitamin 1 tab PO DAILY 10/05/21 [History Last Taken Unknown] omeprazole 20 mg capsule,delayed release 40 mg PO BID reflux 08/02/22 [History Last Taken Unknown] hydrochlorothiazide 25 mg tablet 25 mg PO QHS bp 04/17/23 [History Last Taken Unknown] Allergy/AdvReac Type Severity Reaction Status Date / Time cephalexin AdvReac diarrhea Verified 04/17/23 20:22 niacin AdvReac PT UNSURE Verified 04/17/23 20:22 OF REACTION Family History Father Heart disease CAD (coronary artery disease) Sister Heart disease SVT Mother CVA (cerebral vascular accident) Daughter Heart disease SVT Surgical History H/O blepharoplasty H/O hemorrhoidectomy H/O knee surgery H/O umbilical hernia repair History of cataract surgery History of cholecystectomy History of ventral hernia repair Hx of appendectomy S/P cystourethroscopy with dilation of urethral stricture Social History household members: spouse Smoking Status: Former smoker quit date: 12/02/1964 alcohol intake: never substance use type: does not use caffeine: Yes Type: coffee Number of servings: 3 ROS ROS Narrative Does complain of some chest pain post chest compressions. All review of systems were negative except as mentioned above in the history of present illness and the other review of systems. Vital Signs Vital Signs Vital Signs: 04/17/23 20:22 04/17/23 20:19 04/17/23 21:22 Temperature 37.0 C Temperature Source Oral Pulse Rate 96 88 93 Respiratory Rate 18 17 20 H Blood Pressure 131/78 H 109/78 125/78 H Blood Pressure Mean 95 88 93 Pulse Ox 87 94 94 Oxygen Delivery Method Room Air Nasal Cannula Room Air Oxygen Flow Rate (L/min) 2 04/17/23 22:58 04/17/23 21:42 Temperature Temperature Source Pulse Rate 87 Respiratory Rate 12 Blood Pressure 118/71 Blood Pressure Mean 86 Pulse Ox 96 Oxygen Delivery Method Room Air Room Air Oxygen Flow Rate (L/min) Weight Weight: 63.8 kg Body Mass Index (BMI) 20.2 Physical Exam Narrative - Physical Exam General: Alert, Oriented x3, Cooperative HEENT: Atraumatic, PERRLA, EOMI, Normocephalic. Does have bite dixon on his tongue with some bruising on the lateral aspect on his right. Oral: Moist Mucosa, No Gingival or Mucosal Lesions/ Ulcerations Neck: Supple, No JVD, Negative Carotid Bruits Lungs: Clear to auscultation, Normal air movement Cardiovascular: Regular rate, Normal S1, Normal S2, No murmurs Abdomen: Bowel Sounds Present, Soft, Non Tender, Non-Distended, No Hepato-splenomegaly Extremities: No clubbing, No cyanosis, No edema, Capillary Refill Less than 3 Seconds Skin: No rashes, No breakdown Musculoskeletal: No Tenderness to Palpation of Joints or Extremities Neurological: Neuro grossly intact Psych/Mental Status: Normal Affect, Appropriate Results Lab / Micro Data Attestation: I reviewed the patient's lab results. 04/17/23 20:35 04/17/23 20:35 Labs: Laboratory Results - last 24 hr 04/17/23 20:35: WBC 7.3, RBC 4.65, Hgb 13.7, Hct 42.3, MCV 91.0, MCH 29.5, MCHC 32.4, RDW Std Deviation 47.1 H, RDW Coeff of Ksenia 14.0, Plt Count 234, MPV 11.4, Immature Gran % (Auto) 0.400, Neut % (Auto) 48.7, Lymph % (Auto) 40.0, [place] % (Auto) 8.8, Eos % (Auto) 1.4, Baso % (Auto) 0.7, Absolute Neuts (auto) 3.5, Absolute Lymphs (auto) 2.91, Nucleated RBC % 0, Sodium 141, Potassium 4.0, Chloride 106, Carbon Dioxide 28.0, Anion Gap 7, BUN 28 H, Creatinine 1.75 H, Estim Creat Clear Calc 29.37, Est GFR (MDRD) Af Amer 48 L, Est GFR (MDRD) Non-Af 40 L, BUN/Creatinine Ratio 16.0, Glucose 123 H, Calcium 9.0, Troponin I High Sens 8 Rhythm Strip Rhythm Strip: A-fib Rate: 91 Ectopy: None Imagaing Radiology Impression Brain CT 04/17/23 21:32 IMPRESSION: Mild atrophy and periventricular white matter ischemic changes. No mass or acute bleed.. MRI would be helpful for further evaluation if clinically indicated Electronically Signed: Scotty Rosa MD at 22:02 EST , Chest X-Ray 04/17/23 21:50 IMPRESSION: Mild discoid atelectasis or scarring in the left lower lobe Electronically Signed: Scotty Rosa MD at 22:12 EST Reading Location ID and State: [address] [place] [address] Tel , Service support , Assessment & Plan Assessment/Plan (1) Seizure: PLAN: Suspected given the patient's story: He had what sounds like tonic-clonic activity for roughly 30 seconds and protracted. Unresponsiveness. CPR was initiated by his but I do not feel that he wanted to cardiac arrest. Was verified that the patient did have a pulse when EMS arrived. Patient was having CPR while he was sitting up in a chair so was not an ideal position to do CPR so likely that had no effect on the patient's outcome. But given the concern that this was an actual seizure and the fact that he had also had bite dixon on his tongue I do feel that additional seizure workup is necessary including an MRI of the brain, EEG and seizure precautions. Would recommend neurology evaluation after that testing has been completed. I did advise the patient and his about restrictions of his activity such as no driving, operating heavy machinery, baths or swimming by himself for the next 6 months as well long as he is seizure-free. PLAN: Plan Chronic A-fib: Continue with apixaban Hypertension: Stable continue with hydrochlorothiazide and lisinopril Hypothyroidism: Continue levothyroxine VTE prophylaxis: Not indicated given current observation status. Charges/Coding Visit Charges Inpatient E&M: 94271 Init Hosp L3
[2023-04-17 23:45] LABS: Reflex Troponin-HS? (from REC) Y
[2023-04-18 00:15] VITALS: BP 136/92; PULSE 85; RESP 16; TEMP 36.1; O2SAT 97
[2023-04-18 00:18] VITALS: BMI 28.6
[2023-04-18 00:18] LABS: Troponin-I HS 10 pg/mL (3.0-78.0)
[2023-04-18 05:42] VITALS: BP 96/58; PULSE 68; RESP 18; TEMP 36.6; O2SAT 96
[2023-04-18] MEDS: Levothyroxine 125 MCG Tablet PO (05:44)
--- NOTE | 2023-04-18 09:00 | MRI_ITS ---
EXAM: MR HEAD WITHOUT INTRAVENOUS CONTRAST CLINICAL INDICATION: Seizure. TECHNIQUE: Multiplanar and multisequence MR images of the brain were obtained without intravenous contrast. COMPARISON: CT head without contrast 04/17/2023. FINDINGS: BRAIN AND EXTRA-AXIAL SPACES: No diffusion restriction throughout the brain parenchyma. No focal signal abnormalities throughout the brain parenchyma in all pulse sequences. No intra- or extra-axial hemorrhage. No evidence of acute infarct. No intracranial mass or mass effect. There is preservation of the wallace/white matter interface. Posterior fossa structures are unremarkable. Ventricles are appropriate for age. No hydrocephalus. Basal cisterns are patent. SELLA: Unremarkable. Normal sella turcica, pituitary gland, infundibular stalk, optic chiasm and hypothalamus. AUDITORY SYSTEM: Unremarkable. The internal auditory canals are patent. BONES/JOINTS: Unremarkable. No discrete lytic or blastic abnormalities. SINUSES: Unremarkable as visualized. Clear. MASTOID AIR CELLS: Unremarkable as visualized. Clear. ORBITS: Unremarkable as visualized. Both globes, extraocular muscles, optic nerves and retrobulbar fat appear unremarkable. VASCULATURE: Unremarkable as visualized. Normal flow voids in the major intracranial circulation. MRI/Brain without Contrast IMPRESSION: Normal MRI brain without intravenous contrast. Electronically Signed: Ravinder Segovia MD at 10:27 [facility] ,
[2023-04-18 11:31] VITALS: BP 120/81; PULSE 69; RESP 16; TEMP 36.1; O2SAT 96
[2023-04-18] MEDS: APIXABAN 5 MG TABLET PO ×2 (11:33→19:59)
[2023-04-18] MEDS: Cholecalciferol (VIT D3) 25 MCG TABLET (1,000 UNITS) PO (11:34)
[2023-04-18] MEDS: Pantoprazole Sodium 40 MG Tablet PO ×2 (11:34→19:59)
--- NOTE | 2023-04-18 15:33 | PCM.PROGNOTE ---
Subjective Subjective Patient seen and examined. He had no active complains this morning and had an uneventful night. Review of systems otherwise negative. He has remained hemodynamically stable. He hasnt had any more seizure like episodes since admission. Objective Data Objective Data Vital Signs: Vital Signs Temp Pulse Resp BP Pulse Ox O2 Del Method O2 Flow Rate 97.0 F L 69 16 120/81 H 96 Room Air 2 04/18/23 11:31 04/18/23 11:31 04/18/23 11:31 04/18/23 11:31 04/18/23 11:31 04/18/23 11:31 04/17/23 20:19 Oxygen Flow Rate (L/min) 2 Oxygen Delivery Method Room Air Weight: 199 lb 8.293 oz Body Mass Index (BMI) 28.6 Intake & Output: Intake and Output for Last 24 Hours 04/16/23 04/17/23 04/18/23 23:59 23:59 23:59 Intake Total 500 / 500 Balance 500 / 500 Lab / Micro Data 04/17/23 20:35 04/17/23 20:35 Labs: Laboratory Results - last 24 hr 04/17/23 20:35: WBC 7.3, RBC 4.65, Hgb 13.7, Hct 42.3, MCV 91.0, MCH 29.5, MCHC 32.4, RDW Std Deviation 47.1 H, RDW Coeff of Ksenia 14.0, Plt Count 234, MPV 11.4, Immature Gran % (Auto) 0.400, Neut % (Auto) 48.7, Lymph % (Auto) 40.0, [place] % (Auto) 8.8, Eos % (Auto) 1.4, Baso % (Auto) 0.7, Absolute Neuts (auto) 3.5, Absolute Lymphs (auto) 2.91, Nucleated RBC % 0, Sodium 141, Potassium 4.0, Chloride 106, Carbon Dioxide 28.0, Anion Gap 7, BUN 28 H, Creatinine 1.75 H, Estim Creat Clear Calc 29.37, Est GFR (MDRD) Af Amer 48 L, Est GFR (MDRD) Non-Af 40 L, BUN/Creatinine Ratio 16.0, Glucose 123 H, Calcium 9.0, Troponin I High Sens 8 04/17/23 23:50: Troponin I High Sens 10 Radiography Diagnostic Testing: Radiology Impression Brain CT 04/17/23 21:32 IMPRESSION: Mild atrophy and periventricular white matter ischemic changes. No mass or acute bleed.. MRI would be helpful for further evaluation if clinically indicated Electronically Signed: Scotty Rosa MD at 22:02 EST , Chest X-Ray 04/17/23 21:50 IMPRESSION: Mild discoid atelectasis or scarring in the left lower lobe Electronically Signed: Scotty Rosa MD at 22:12 EST , Brain MRI 04/18/23 09:00 IMPRESSION: Normal MRI brain without intravenous contrast. Electronically Signed: Ravinder Segovia MD at 10:27 EST , Rhythm Strip Rhythm Strip: A-fib Rate: 91 Ectopy: None Physical Exam Const alert, oriented x3 and no apparent distress General Appearance: cooperative and well developed HEENT normocephalic, head/scalp atraumatic and moist oral mucous membranes Eyes PERRL and EOMs intact bilaterally Neck no lymphadenopathy and supple Lymph Lymphatic: no lymphadenopathy noted and no lymphedema noted Resp normal respiratory effort, normal air movement and clear to auscultation bilaterally Cardio regular rate, S1 normal heart sound, S2 normal heart sound and no murmurs GI normal to inspection, nondistended, normoactive bowel sounds, soft to palpation, non-tender and non-distended Extremity normal capillary refill, no clubbing, cyanosis or edema and no calf tenderness General Extremity: no tenderness to palpation of joints or extremities Skin General Skin Exam: no breakdown Neuro CN's II-XII intact bilaterally, no focal motor deficits, no sensory deficits noted and deep tendon reflexes 2+ bilaterally Psych thought process normal, cooperative and affect normal Appearance: appropriate Assessment & Plan Assessment/Plan (1) Seizure: PLAN: Plan #Probable seizure admitted with wha sounds like a tonic clonic seizure. This is the first time he has had such seizure like symptoms CT of the brain showed no acute intracranial pathology MRI of the brain and EEG ordered and pending start on PO keppra 500mg bid seizure precuations #Afib: on eliquis. #Hypertension: on HCTZ and lisinopril #Hypothyroidism; synthroid DVT prophylaxis: SCDs Charges/Coding Visit Charges Inpatient E&M: 57939 Subs Hosp L2
[2023-04-18] MEDS: levETIRAcetam 500 MG Tablet PO (15:55)
[2023-04-18 17:33] VITALS: BP 126/56; PULSE 70; RESP 16; TEMP 36.4; O2SAT 98
[2023-04-18] MEDS: hydroCHLOROthiazide 25 MG Tablet PO (19:59)
[2023-04-18] MEDS: Atorvastatin Calcium 10 MG Tablet PO (19:59)
[2023-04-18] MEDS: Lisinopril 20 MG Tablet PO ×2 (19:59)
[2023-04-18 20:29] VITALS: PULSE 67
[2023-04-18 23:33] VITALS: BP 107/95; PULSE 73; RESP 16; TEMP 36.1; O2SAT 97
[2023-04-19 05:33] VITALS: BP 103/62; PULSE 71; RESP 16; TEMP 36.4; O2SAT 96
[2023-04-19] MEDS: Levothyroxine 125 MCG Tablet PO (05:40)
[2023-04-19 07:54] VITALS: BP 129/73; PULSE 74; RESP 18; TEMP 35.6; O2SAT 98
--- NOTE | 2023-04-19 07:56 | NURSING ---
Charge Nurse Davida aware of per report awaiting OSUNeruo consult follow up and she will monitori/follow up with MD on that
[2023-04-19] MEDS: APIXABAN 5 MG TABLET PO (07:58)
[2023-04-19] MEDS: levETIRAcetam 500 MG Tablet PO (07:58)
[2023-04-19] MEDS: Cholecalciferol (VIT D3) 25 MCG TABLET (1,000 UNITS) PO (07:58)
[2023-04-19] MEDS: Pantoprazole Sodium 40 MG Tablet PO (07:58)
[2023-04-19 08:05] LABS: Absolute Neutrophil Count 2.6 X10^3/uL (2.0-7.7); Basophil# 0.06 X10^3/uL; Basophil% 1.2 % (0-1); Eosinophil# 0.13 X10^3/uL; Eosinophils% 2.6 % (0-5); Hematocrit 41.9 % (40-54); Hemoglobin 13.3 g/dL (13.0-16.5); Lymphocyte % 31.9 % (19-41); Mean Corp Hgb Conc 31.7 g/dL (32-36); Mean Corpuscular Hgb 29.6 pg (27.0-32.0); Mean Corpuscular Volume 93.3 fL (80-94); Mean Platelet Vol. 10.9 fl (6.2-12.0); NRBC Flagged by Analyzer 0 % (0-5); Neutrophil % 51.9 % (47-70); Platelet Count 201 K/mm3 (150-450); RBC Distribution Width CV 14.1 % (11.6-14.6); RBC Distribution Width SD 48.7 fl (35.1-43.9); Red Blood Count 4.49 M/mm3 (4.6-6.2)
--- NOTE | 2023-04-19 08:28 | CON.PCM.NE_ITS ---
Assessment and Plan: Neuro Assessment/Plan NICOLLE KWOK is a 82 M with a past medical history of afib, syncope 2/2 arrythmia, HTN, being evaluated by Teleneurology for seizure-like episode. On history, pt returned to baseline without additional seizure risk factors but the event does sounds like a seizure. Exam is unremarkable. Imaging and EEG are unremarkble for high risk features that would suggest that pt is at risk for another seizure. Discussed risk of recurrent seizure with pt (20-40%) and given low risk features, patient is amenable to holding off on starting AEDs. Discussed seizure precautions with patient - ie 3 months no driving, use of heavy machinery. Diagnosis: first-time seizure Plan: Hold on starting AEDs given diagnostic testing without high risk features and nothing on history with high risk features. I personally attended this patient and spent a total time of 60 minutes evaluating this patient including clinical assessment, review of chart, medical history imaging, and determining appropriate treatment and workup. HPI Consult Data Date of Consult: 04/19/23 HPI Narrative HPI Narrative: NICOLLE KWOK, is a 82 M who presents with 30 second spell of shaking and then unresponsiveness that followed. Patient was up looking at his phone and he started having shaking of his upper extremities and then went unresponsive. His was concerned he had a seizure and called 911. 911 advised her to start CPR the did not advise her to check her pulse first. She commenced with CPR and EMS arrived and checked and verify that he did have a pulse. Patient remained unresponsive until he arrived in the emergency room. Patient has never had a seizure before never had any spells like this before. Has been no change in his medications, he sleeps roughly 8 hours a night though he does have to get up 2-3 times per night to urinate but otherwise sleeps sleeps well. Today, he did have full day where he did go to a and did do some other errands but nothing other jones out of the ordinary. Neurologic History: Remembers being with his chair and then does not remember anything until he got to the hospital. Pt's heard a grunt and then noted that pt jerked to the R side, eyes were closed and head centered. Pt had shaking of the arms and legs. Pt was rigid during this. No foaming at the mouth. No loss of control of bowel or bladder. Bit his tongue. By the time he was at hospital, he was acting back to normal. Had 2 fainting spells about 3 yrs ago, may be related to the afib. Did not look like this event, was sitting in his chair again and pt had eyes open and stared for 10-15 sec. Pt was not rigid. No medication changes in the last month (started, stopped, or dosage changes). Pt has no family history of seizure, no history of seizures as a kid, no prior history of TBI, meningitis, stroke etc. FORMERLY [facility], 1928–1983 Medical History Anemia Basal cell carcinoma BPH (benign prostatic hyperplasia) Dupuytren contracture Epistaxis Essential (primary) hypertension GERD (gastroesophageal reflux disease) History of pancreatitis Hyperlipidemia Hypothyroidism Idiopathic acute pancreatitis Non-sustained ventricular tachycardia Paroxysmal atrial fibrillation Prostate cancer Sinus pause Syncope (03/2019) Home Medications simvastatin 20 mg tablet 20 mg PO QHS cholesterol 04/24/19 [History Last Taken 09/06/20] apixaban 5 mg tablet 5 mg PO BID blood thinner 04/02/20 [History Last Taken 09/07/20] lisinopril 20 mg tablet 20 mg PO QHS bp 04/02/20 [History Last Taken 09/06/20] levothyroxine 125 mcg tablet 125 mcg PO DAILY 10/01/20 [History Last Taken Unknown] cholecalciferol (vitamin D3) 25 mcg (1,000 unit) capsule 25 mcg PO DAILY [History Last Taken Unknown] multivitamin 1 tab PO DAILY 10/05/21 [History Last Taken Unknown] omeprazole 20 mg capsule,delayed release 20 mg PO BID reflux 08/02/22 [History Last Taken Unknown] hydrochlorothiazide 25 mg tablet 25 mg PO DAILY bp 04/17/23 [History Last Taken Unknown] Allergy/AdvReac Type Severity Reaction Status Date / Time cephalexin AdvReac diarrhea Verified 04/18/23 00:42 niacin AdvReac PT UNSURE Verified 04/18/23 00:42 OF REACTION Family History Father Heart disease CAD (coronary artery disease) Sister Heart disease SVT Mother CVA (cerebral vascular accident) Daughter Heart disease SVT Surgical History H/O blepharoplasty H/O hemorrhoidectomy H/O knee surgery H/O umbilical hernia repair History of cataract surgery History of cholecystectomy History of ventral hernia repair Hx of appendectomy S/P cystourethroscopy with dilation of urethral stricture Social History household members: spouse Smoking Status: Former smoker quit date: 12/02/1964 alcohol intake: never substance use type: does not use caffeine: Yes Type: coffee Number of servings: 3 Vital Signs Vital Signs Vital Signs: 04/18/23 10:00 04/18/23 11:31 04/18/23 17:33 Temperature 97.0 F L 97.5 F L Temperature Source Temporal Temporal Pulse Rate 69 70 Respiratory Rate 16 16 Blood Pressure 120/81 H 126/56 H Blood Pressure Mean 94 79 Blood Pressure Source Monitor Monitor Blood Pressure Position Semi-Fowlers Semi-Fowlers Blood Pressure Location Right Arm Right Arm Pulse Ox 96 98 Oxygen Delivery Method Room Air Room Air Room Air 04/18/23 20:27 04/18/23 20:29 04/18/23 23:33 Temperature 97 F L Temperature Source Temporal Pulse Rate 67 73 Respiratory Rate 16 Blood Pressure 107/95 H Blood Pressure Mean 99 Blood Pressure Source Monitor Blood Pressure Position Supine Blood Pressure Location Pulse Ox 97 Oxygen Delivery Method Room Air Room Air 04/19/23 00:43 04/19/23 05:33 04/19/23 07:54 Temperature 97.6 F L 96.0 F L Temperature Source Temporal Temporal Pulse Rate 71 74 Respiratory Rate 16 18 Blood Pressure 103/62 129/73 H Blood Pressure Mean 75 91 Blood Pressure Source Monitor Monitor Blood Pressure Position Semi-Fowlers Sitting Blood Pressure Location Left Arm Pulse Ox 96 98 Oxygen Delivery Method Room Air Room Air Room Air Weight Weight: 90.5 kg Body Mass Index (BMI) 28.6 EEG Results Procedure Details EEG Procedure Details: NICOLLE KWOK is a 82 year old M with a past medical history of , who presents for evaluation of Electroencephalogram on DATE at TIME Physical Exam Neuro Sensorium / Orientation: awake, alert, oriented to person, oriented to place and oriented to time Cranial Nerves: CN normal except as noted Coordination / Balance: [id number] test normal and [id number]-ak-[id number] test normal Speech: speech normal Sensory Exam: extremities light-touch: normal Motor Exam: strength 5/5 throughout Plantar Reflex: Downgoing: left and Equivocal: right Pupil Exam: Normal Pupillary Reactivity/Response: bilateral (3mm) Medical Records Data Medical records narrative: EEG reported as normal Lab / Micro Data 04/19/23 06:40 04/19/23 06:40 Labs: Laboratory Results - last 24 hr 04/19/23 06:40: WBC 5.0, RBC 4.49 L, Hgb 13.3, Hct 41.9, MCV 93.3, MCH 29.6, MCHC 31.7 L, RDW Std Deviation 48.7 H, RDW Coeff of Ksenia 14.1, Plt Count 201, MPV 10.9, Immature Gran % (Auto) 0.400, Neut % (Auto) 51.9, Lymph % (Auto) 31.9, [place] % (Auto) 12.0 H, Eos % (Auto) 2.6, Baso % (Auto) 1.2 H, Absolute Neuts (auto) 2.6, Absolute Lymphs (auto) 1.60, Nucleated RBC % 0 Rhythm Strip Rhythm Strip: A-fib Rate: 91 Ectopy: None Imagaing Radiology Impression Brain MRI 04/18/23 09:00 IMPRESSION: Normal MRI brain without intravenous contrast. Electronically Signed: Ravindre Segovia MD at 10:27 EST Reading Location ID and State: [address] [place] [address] , Service support , Active Medications Active Medications Active Medications: Current Medications Generic Name Dose Route Start Last Admin Trade Name Freq PRN Reason Stop Dose Admin Acetaminophen 650 mg 04/18/23 00:17 Acetaminophen 325 Mg Tablet PO Q6H PRN PRN Pain 1-10 Or Fever >100.7 Apixaban 5 mg 04/18/23 10:00 04/19/23 07:58 Apixaban 5 Mg Tablet PO 5 mg BID RENZO Administration Atorvastatin Calcium 10 mg 04/18/23 22:00 04/18/23 19:59 Atorvastatin Calcium 10 Mg Tablet PO 10 mg QHS RENZO Administration Cholecalciferol 25 mcg 04/18/23 10:00 04/19/23 07:58 Cholecalciferol (Vit D3) 25 Mcg Tablet (1,000 Units) PO 25 mcg DAILY RENZO Administration Hydrochlorothiazide 25 mg 04/18/23 22:00 04/18/23 19:59 Hydrochlorothiazide 25 Mg Tablet PO 25 mg QHS RENZO Administration Protocol Levetiracetam 500 mg 04/18/23 15:30 04/19/23 07:58 Levetiracetam 500 Mg Tablet PO 500 mg BID RENZO Administration Levothyroxine Sodium 125 mcg 04/18/23 06:00 04/19/23 05:40 Levothyroxine 125 Mcg Tablet PO 125 mcg 0600 RENZO Administration Lisinopril 20 mg 04/18/23 22:00 04/18/23 19:59 Lisinopril 20 Mg Tablet PO 20 mg QHS RENZO Administration Protocol Ondansetron HCl 4 mg 04/18/23 00:17 Ondansetron 4 Mg/2 Ml Vial IV Q8H PRN PRN NAUSEA/VOMITING Pantoprazole Sodium 40 mg 04/18/23 10:00 04/19/23 07:58 Pantoprazole Sodium 40 Mg Tablet PO 40 mg BID RENZO Administration Sodium Chloride 10 - 40 ml 04/18/23 00:30 0.9% Saline Lock 10 Ml Syringe IV UD PRN SALINE FLUSH
[2023-04-19 08:45] LABS: Anion Gap 5 (5-15); BUN 25 mg/dL (7-18); BUN/Creat Ratio 16.4 RATIO (10-20); Calcium,Total 8.9 mg/dL (8.5-10.1); Chloride 107 mmol/L (98-107); Creatinine, Serum 1.52 mg/dL (0.70-1.30); EST Glomerular Filtration Rate 47 mL/min (>60); Est Glom Filt Rate - Afr Amer 57 mL/min (>60); Estimated Creatinine Clearance 38.69 ml/min; Glucose 95 mg/dL (74-106); Potassium 3.8 mmol/L (3.5-5.1); Sodium Level 140 mmol/L (136-145)
--- NOTE | 2023-04-19 10:05 | CASEMGMT ---
Met with patient to complete THORNTON form. THORNTON form explained to patient who voiced understanding and signed form. Original form placed in pt?s chart and copy provided to?patient. Ana Paula Diaz, Discharge Planning Asst
[2023-04-19 14:38] VITALS: BP 105/76; PULSE 80; RESP 18; TEMP 36.6; O2SAT 96
--- NOTE | 2023-04-19 15:13 | DS.PCM_ITS ---
Providers Date of Admission: 04/17/23 Date of Discharge: 04/19/23 Primary Care Physician: Dr. Stoney Erazo, Consultations 04/18/23 15:26 [facility] [Consult: Tele-Neurology] Routine Consulting Provider: [facility] Reason for Consult: seizures EMERGENT Consult: No MD Notified: Yes Date Notified: 04/18/23 Time Notified: 15:26 Method of Notification: Answering Service Comments:: Call Back for Dr Ruiz: Nursing Unit Staff Notify [facility] of Tele-Neurology Consult: Yes Reason For Visit: SEIZURE Diagnosis Discharge Diagnosis (1) Seizure: Status: Acute Code(s): R56.9 - Unspecified convulsions Plan #Probable seizure * admitted with wha sounds like a tonic clonic seizure. This is the first time he has had such seizure like symptoms * CT of the brain showed no acute intracranial pathology * MRI of the brain and EEG ordered and pending * start on PO keppra 500mg bid * seizure precuations * #Afib: on eliquis. #Hypertension: on HCTZ and lisinopril #Hypothyroidism; synthroid DVT prophylaxis: SCDs Medications at Discharge Home Medications simvastatin 20 mg tablet 20 mg PO QHS cholesterol 04/24/19 apixaban 5 mg tablet 5 mg PO BID blood thinner 04/02/20 lisinopril 20 mg tablet 20 mg PO QHS bp 04/02/20 levothyroxine 125 mcg tablet 125 mcg PO DAILY 10/01/20 cholecalciferol (vitamin D3) 25 mcg (1,000 unit) capsule 25 mcg PO DAILY 10/05/21 multivitamin 1 tab PO DAILY 10/05/21 omeprazole 20 mg capsule,delayed release 20 mg PO BID reflux 08/02/22 hydrochlorothiazide 25 mg tablet 25 mg PO DAILY bp 04/17/23 Hospital Course Operations None Procedures Electroencephalogram Summary of Care Provided Minutes Spent on Discharge: 55 Hospital Course: Patient is an 82-year-old male with a past medical history as outlined was admitted through the ED on 04/17/2023 with a brief period of shaking and unresponsiveness. He was looking at his phone he started having shaking of his upper extremities and then went unresponsive. was concerned he had a seizure and called 911. She was advised to start CPR; EMS verified that he did have a pulse. In the ED he became responsive. CT of the brain showed no acute intracanial pathology.He was admitted and managed for seizure. MRI of the brain done showed no acute intracranial pathology. EEG done showed no evidence of seizures. Patient was started on Keppra. [facility] neurology was consulted and reviewed patient. Per neurology, the weakness may likely be a seizure, she will not recommend initiating patient on any seizure medications as long as EEG was normal. Patient was counseled about seizure precautions including driving. He was counseled to abstain from driving until he was cleared by neurology on outpatient basis. He was also counseled about risk of recurrence. Patient had a urinalysis and urine drug screen done which were both negative. He was discharged home on 04/19/2023. He is to follow-up with his PCP within 1 to 2 weeks and was also referred to neurology on outpatient basis. He is to see neurology to be cleared for driving. Patient seen and examined prior to discharge. He felt well and had no complaints. He had an uneventful night. Review of systems otherwise negative. Labs and vitals reviewed. Home medication reviewed and reconciled. Physical Exam Const alert, oriented x3 and no apparent distress General Appearance: cooperative, comfortable and well developed HEENT normocephalic, head/scalp atraumatic, hearing grossly normal bilaterally and moist oral mucous membranes Eyes PERRL and EOMs intact bilaterally Neck no lymphadenopathy and supple Lymph Lymphatic: no lymphadenopathy noted and no lymphedema noted Resp normal respiratory effort, normal air movement and clear to auscultation bilaterally Cardio regular rate, regular rhythm, S1 normal heart sound, S2 normal heart sound and no murmurs GI normal to inspection, nondistended, normoactive bowel sounds, soft to palpation, non-tender and non-distended Extremity normal to inspection, full ROM, normal capillary refill, no clubbing, cyanosis or edema and no calf tenderness General Extremity: no tenderness to palpation of joints or extremities Skin no rashes or lesions noted General Skin Exam: no breakdown Neuro oriented x3, CN's II-XII intact bilaterally, moves all extremities, no focal motor deficits, no sensory deficits noted and deep tendon reflexes 2+ bilaterally Sensorium / Orientation: awake, alert and oriented to person Motor Exam: strength 5/5 throughout Psych thought process normal, cooperative and affect normal Appearance: appropriate Weight / BMI Weight Weight: 199 lb 8.293 oz Body Mass Index (BMI) 28.6 ABG / Lab / Microbiology Data 04/19/23 06:40 04/19/23 06:40 Laboratory: Laboratory Results - last 24 hr 04/19/23 06:40: WBC 5.0, RBC 4.49 L, Hgb 13.3, Hct 41.9, MCV 93.3, MCH 29.6, MCHC 31.7 L, RDW Std Deviation 48.7 H, RDW Coeff of Ksenia 14.1, Plt Count 201, MPV 10.9, Immature Gran % (Auto) 0.400, Neut % (Auto) 51.9, Lymph % (Auto) 31.9, [place] % (Auto) 12.0 H, Eos % (Auto) 2.6, Baso % (Auto) 1.2 H, Absolute Neuts (auto) 2.6, Absolute Lymphs (auto) 1.60, Nucleated RBC % 0, Sodium 140, Potassium 3.8, Chloride 107, Carbon Dioxide 28.0, Anion Gap 5, BUN 25 H, Creatinine 1.52 H, Estim Creat Clear Calc 38.69, Est GFR (MDRD) Af Amer 57 L, Est GFR (MDRD) Non-Af 47 L, BUN/Creatinine Ratio 16.4, Glucose 95, Calcium 8.9 D/C Instructions Discharge Diet: Low fat / Low cholesterol Discharge Activity: Return to Normal Activity Weight Bearing Status: Full weight bearing Call your doctor if you observe: Fever of 101 or Higher, Shortness of breath, Swelling in the ankles and Chest pain Meaningful Use Info Meaningful Use Diagnoses (Choose all that apply): None applicable Discharge Plan Admission Admit Date/Time: 04/17/23 23:00 Primary Reason for Your Visit: probable seizure Attending Provider: Grace Ruiz Primary Care Provider: Stoney Erazo Consulting Providers: Finn Biggs; Isac Fregoso; Zabrina Damon; Rahel Torres; Susan Robbins; Stephany Eden; Alejandro Pyle; Evelyn De; Jennifer Flores; Naren Naranjo; Jimi Rivera; Heaven Richter; Colten Finn; Alicja Greene; Cosmo Ryan; Tiffalexsander Sullivan; Bill Don; Curt Burnham; Mabel Mcnamara; Malick March Instructions Patient Instructions: ED Seizure New Onset Unknown ... Discharge Orders/Prescriptions Prescriptions: Continued omeprazole 20 mg capsule,delayed release(DR/EC) 20 mg PO BID simvastatin 20 mg tablet 20 mg PO QHS levothyroxine 125 mcg tablet 125 mcg PO DAILY cholecalciferol (vitamin D3) 25 mcg (1,000 unit) capsule 25 mcg PO DAILY multivitamin Tablet 1 tab PO DAILY lisinopril 20 MG tablet 20 mg PO QHS apixaban 5 MG tablet 5 mg PO BID Patient Comments: stop 3 days preop as directed hydrochlorothiazide 25 MG tablet 25 mg PO DAILY Referrals / Follow Up: Stoney Erazo DO [Primary Care Provider] - Within 1 Week Hector Duenas MD [Non-Staff -Ordering Privileges] - Within 2 Weeks Disposition Disposition (needs filled in before D/C Order can be placed): Home, Self Care Charges/Coding Visit Charges Inpatient E&M: 75288 Disch Hosp >30min
[2023-04-19 15:52] LABS: Bacteria 0 SEEN /hpf (None Seen); Mucous, Urine 0 SEEN /hpf (<or=2+); Red Blood Cells-Urine 0 SEEN /hpf (0-5); Squamous Epithelial Cells - UA 0 SEEN /hpf (0-5); White Blood Cells 0 SEEN /hpf (0-5)
[2023-04-19 15:56] LABS: Color, Urine Yellow (Yellow); Glucose, Dipstick Normal (Normal); Ketone-Dipstick Negative (Negative); Leukocyte Esterase-Dipstick Negative /ul (Negative); Nitrite-Dipstick Negative (Negative); Occult Blood-Urine Negative /ul (Negative); Protein-Dipstick Negative (Negative); Specific Gravity, Urine 1.015 (1.002-1.030); Urine Bilirubin Dipstick Negative (Negative); Urine Clarity Clear (Clear); Urine Urobilinogen Normal (Normal)
--- NOTE | 2023-04-19 16:16 | CASEMGMT ---
Patient to discharge home. RN CM in to discuss needs at discharge. Patient and deny needs at discharge. Patient and denied further questions or concerns.
[2023-04-19 16:19] LABS: TCA Internal Control -Neg LINE = VALID (- VALID); TCA Urine Drug Screen Negative (<1000 ng/mL)
--- NOTE | 2023-04-19 17:12 | PHA.DC.MR.R ---
Pharmacy [place] Med Reconciliation Pharmacy Service has performed discharge medication reconciliation for this patient. The patient's discharge medication list was reviewed for discrepancies and discrepancies were resolved. Medications at Discharge Home Medications simvastatin 20 mg tablet 20 mg PO QHS cholesterol 04/24/19 apixaban 5 mg tablet 5 mg PO BID blood thinner 04/02/20 lisinopril 20 mg tablet 20 mg PO QHS bp 04/02/20 levothyroxine 125 mcg tablet 125 mcg PO DAILY 10/01/20 cholecalciferol (vitamin D3) 25 mcg (1,000 unit) capsule 25 mcg PO DAILY 10/05/21 multivitamin 1 tab PO DAILY 10/05/21 omeprazole 20 mg capsule,delayed release 20 mg PO BID reflux 08/02/22 hydrochlorothiazide 25 mg tablet 25 mg PO DAILY bp 04/17/23
== END 2023-04-19 16:43 | disposition home or self-care (01) ==
LOC: ED 22:53 → PCU 23:21
PROVIDERS: Emergency Provider Emergency Medicine; PCP Family Medicine; Visit Provider Student in an Organized Health Care Education/Training Program
DX: R56.9 Unspecified convulsions (principal); I48.0 Paroxysmal atrial fibrillation; C61 Malignant neoplasm of prostate; Z87.891 Personal history of nicotine dependence; Z79.01 Long term (current) use of anticoagulants; E78.5 Hyperlipidemia, unspecified; I12.9 Hypertensive chronic kidney disease with stage 1 through stage 4 chronic kidney disease, or unspecified chronic kidney disease; N18.9 Chronic kidney disease, unspecified; E03.9 Hypothyroidism, unspecified; Z79.899 Other long term (current) drug therapy; Z79.890 Hormone replacement therapy
CPT/HCPCS: 36415; 70450; 70551; 71045; 80048; 80307; 81001; 84484; 85025; 93005; 95819; 99221; 99285; G0378

== ENCOUNTER 2023-06-07 18:25 | Inpatient (IN) | payer MEDICARE, OTHER, SELFPAY ==
[2023-06-07] VITALS (7 sets, daily range): BP systolic 93–184; BP diastolic 66–79; PULSE 82–104; RESP 14–20; TEMP 36.7; O2SAT 92–98; BMI 29.1
--- NOTE | 2023-06-07 19:54 | CT_ITS ---
STUDY: CT BRAIN WITHOUT CONTRAST REASON FOR EXAM: Male, 82 years old. altered mental status RADIATION DOSAGE (If Supplied By Facility): CTDIvol = ( 44.99 ) mGy, DLP = ( 829.85 ) mGycm TECHNIQUE: Transaxial CT imaging of the brain was performed without administration of intravenous contrast material. Individualized dose optimization techniques were used for this CT. COMPARISON: 04/17/2023 FINDINGS: Normal soft tissue structures. Normal calvarium. Normal size ventricles and extra-axial spaces for the patient''s age. Normal white matter tracts of the cerebral hemispheres. Normal basal ganglia and thalami. Normal brainstem. Normal cerebellum. There is no intracranial hemorrhage. There are no findings of an acute ischemic infarction. Normal visualized paranasal sinuses. CT/Brain/Head without Contrast IMPRESSION: Normal unenhanced CT scan of the brain. Electronically Signed: Gerardo Fountain MD at 21:37 EST ,
--- NOTE | 2023-06-07 19:54 | EKG12_ITS ---
Test Reason : SEIZURE Blood Pressure : / mmHG Vent. Rate : 084 BPM Atrial Rate : 000 BPM P-R Int : 000 ms QRS Dur : 090 ms QT Int : 372 ms P-R-T Axes : 000 010 022 degrees QTc Int : 439 ms Atrial fibrillation Abnormal ECG Confirmed by SIMONE MCCLURE, NAVA ([id number]), order editor DREW CHOW ([id number]) on 06/09/2023 9:46:47 AM Referred By: Confirmed By:NAVA NICHOLS MD
--- OUTSIDE RECORDS SUMMARY | 2023-06-07 19:56 | XMS RPT_ITS | CCD ---
Author Name Unknown Address [address] [place] [address] Organization [facility] Care Team Providers Care Web Operations Manager Name Role Phone Stoney Erazo DO Primary Care Provider SUKH BREWER Attending Unavailable URBANO, STONEY Primary Care Unavailable SUKH BREWER Attending Unavailable STONEY ERAZO Primary Care Unavailable SUKH BREWER Attending Unavailable URBANO, STONEY Primary Care Unavailable SUKH BREWER Attending Unavailable SUKH BREWER Referring Unavailable STONEY ERAZO Primary Care Unavailable SUKH BREWER Attending Unavailable TSONEY ERAZO Primary Care Unavailable Allergies Allergy Classification Reported Allergen(s) Allergy Type Date of Onset Reaction(s) Facility (9 sources) Cephalexin Drug Allergy 11-01-2018 Diarrhea [facility] (9 sources) Niacin Drug Allergy 04-08-2020 [facility] Medications Current Medications Medication Drug Class(es) Dates Sig (Normalized) Sig (Original) apixaban 5 mg oral tablet (12 sources) Factor Xa Inhibitor Start: 3 End: 3 take 1 tablet by mouth twice daily Eliquis 5 MG tablet Indications: Chronic anticoagulation Take 1 tablet (5 mg) by mouth 2 times daily. 180 tablet 1 02/20/2023 Active cholecalciferol 0.025 mg oral capsule (7 sources) Vitamin D Start: 2 cholecalciferol (Vitamin D-3) 25 MCG (1000 UT) capsule Take by mouth. 0 10/05/2021 Active hydroCHLOROthiazide 25 mg oral tablet (11 sources) Thiazide Diuretic Start: 3 take 0.5 tablet by mouth once daily hydroCHLOROthiazide (HYDRODiuril) 25 MG tablet Indications: Essential hypertension Take 0.5 tablets (12.5 mg) by mouth daily. 90 tablet 1 08/01/2022 Active Problems Active Problems Problem Classification Problem Date Documented Date Episodic/Chronic Cancer of prostate (12 sources) Malignant tumor of prostate; Translations: [Malignant neoplasm of prostate] Onset: 08-17-2021 03-03-2022 Chronic Cardiac dysrhythmias (14 sources) Paroxysmal atrial fibrillation; Translations: [Paroxysmal atrial fibrillation] Onset: 04-03-2019 Chronic Chronic kidney disease (2 sources) Chronic kidney disease stage 3A ; Translations: [Stage 3a chronic kidney disease (HCC)] Onset: 05-10-2023 05-10-2023 Chronic Chronic kidney disease (2 sources) Chronic kidney disease; Translations: [Chronic kidney disease, stage 3a (HCC)] Onset: 05-10-2023 Disorders of lipid metabolism (14 sources) Hypercholesterolemia; Translations: [Pure hypercholesterolemia, unspecified] Onset: 11-01-2018 Chronic Epilepsy; convulsions (4 sources) Seizure; Translations: [Unspecified convulsions] Onset: 05-10-2023 05-10-2023 Episodic Esophageal disorders (13 sources) Gastroesophageal reflux disease without esophagitis; Translations: [Gastro-esophageal reflux disease without esophagitis] Onset: 11-01-2018 Chronic Essential hypertension (17 sources) Essential hypertension; Translations: [Essential (primary) hypertension] Onset: 11-01-2018 Chronic Other aftercare (3 sources) Long-term current use of anticoagulant; Translations: [continuous churn buttermaker (current) use of anticoagulants] Episodic Other upper respiratory disease (2 sources) Bleeding from nose; Translations: [Epistaxis] Onset: 05-10-2023 05-10-2023 Episodic Other upper respiratory disease (1 source) Epistaxis; Translations: [Epistaxis] Onset: 05-10-2023 Episodic Thyroid disorders (14 sources) Hypothyroidism; Translations: [Hypothyroidism, unspecified] Onset: 11-01-2018 Chronic Past or Other Problems Problem Classification Problem Date Documented Da te Episodic/Chronic Conditions associated with dizziness or vertigo (4 sources) Dizziness; Translations: [Dizziness and giddiness] Onset: 08-01-2022 Episodic Deficiency and other anemia (9 sources) Anemia; Translations: [Anemia, unspecified] Onset: 11-07-2022 11-07-2022 Episodic Deficiency and other anemia (2 sources) Anemia, unspecified; Translations: [Anemia, unspecified] Onset: 11-07-2022 Episodic Hyperplasia of prostate (9 sources) Benign prostatic hyperplasia; Translations: [Benign prostatic hyperplasia without lower urinary tract symptoms] Onset: 11-01-2018 Resolved: 11-04-2022 03-03-2022 Chronic Other aftercare (2 sources) long-term (current) use of anticoagulants; Translations: [continuous churn buttermaker (current) use of anticoagulants] Onset: 08-01-2022 Episodic Other connective tissue disease (9 sources) Dupuytren contracture of right palm; Translations: [Palmar fascial fibromatosis [Dupuytren]] Onset: 11-27-2018 03-03-2022 Episodic Other non-epithelial cancer of skin (18 sources) History of squamous cell carcinoma of skin; Translations: [Personal history of other malignant neoplasm of skin] Onset: 11-01-2018 03-03-2022 Episodic Other screening for suspected conditions (not mental disorders or infectious disease) (18 sources) Serum creatinine raised; Translations: [Other specified abnormal findings of blood chemistry] Onset: 11-27-2018 03-03-2022 Episodic Spondylosis; intervertebral disc disorders; other back problems (5 sources) Cervical radiculopathy; Translations: [Radiculopathy, cervical region] Onset: 11-07-2022 11-07-2022 Episodic Results Test Name Value Interpretation Reference Range Facil ity Vital Signs Date Time Vital Sign Value Performing Clinician Sherry jovel 05-10-2023 08:01-0500 Diastolic blood pressure 72 mm[Hg] Sukh Breewr PA-C Work Phone: [facility] 05-10-2023 08:01-0500 Systolic blood pressure 112 mm[Hg] Sukh Brewer PA-C Work Phone: [facility] 05-10-2023 07:05-0500 Body height 177.8 cm Sukh Brewer PA-C Work Phone: [facility] 05-10-2023 07:05-0500 Body mass index (BMI) [Ratio] 29.56 kg/m2 Sukh Brewer PA-C Work Phone: [facility] 05-10-2023 07:05-0500 Body temperature 97 [degF] Sukh Brewer PA-C Work Phone: [facility] 05-10-2023 07:05-0500 Body weight 93.44 kg Sukh Brewer PA-C Work Phone: [facility] 05-10-2023 07:05-0500 Heart rate 96 /min Sukh Brewer PA-C Work Phone: [facility] 05-10-2023 07:05-0500 SaO2% (BldA) [Mass fraction] 97 % Sukh Brewer PA-C Work Phone: [facility] 11-07-2022 07:20-0400 Body height 177.8 cm Sukh Brewer PA-C Work Phone: [facility] 11-07-2022 07:20-0400 Body mass index (BMI) [Ratio] 28.84 kg/m2 Sukh Brewer PA-C Work Phone: [facility] 11-07-2022 07:20-0400 Body temperature 97.5 [degF] Sukh Brewer PA-C Work Phone: [facility] 11-07-2022 07:20-0400 Body weight 91.17 kg Sukh Brewer PA-C Work Phone: [facility] 11-07-2022 07:20-0400 Diastolic blood pressure 81 mm[Hg] Sukh Brewer PA-C Work Phone: [facility] 11-07-2022 07:20-0400 Heart rate 58 /min Sukh Brewer PA-C Work Phone: [facility] 11-07-2022 07:20-0400 SaO2% (BldA) [Mass fraction] 96 % Sukh Brewer PA-C Work Phone: [facility] 11-07-2022 07:20-0400 Systolic blood pressure 145 mm[Hg] Sukh Brewer PA-C Work Phone: [facility] 08-01-2022 07:25-0400 Body height 177.8 cm Sukh Brewer PA-C Work Phone: [facility] 08-01-2022 07:25-0400 Body mass index (BMI) [Ratio] 28.98 kg/m2 Sukh Brewer PA-C Work Phone: [facility] 08-01-2022 07:25-0400 Body temperature 97.81 [degF] Sukh PATTERSON-C Work Phone: [facility] 08-01-2022 07:25-0400 Body weight 91.63 kg Sukh PATTERSON-Isabella Work Phone: [facility] 08-01-2022 07:25-0400 Diastolic blood pressure 76 mm[Hg] Sukh Brewer PA-C Work Phone: [facility] 08-01-2022 07:25-0400 Heart rate 85 /min Sukh Brewer PA-C Work Phone: [facility] 08-01-2022 07:25-0400 SaO2% (BldA) [Mass fraction] 96 % Sukh Brewer PA-C Work Phone: [facility] 08-01-2022 07:25-0400 Systolic blood pressure 118 mm[Hg] Sukh Brweer PA-C Work Phone: [facility] Encounters Encounter Date Encounter Type Care Provider Facility Start: 05-10-2023 End: 05-10-2023 ambulatory SUKH BREWER [facility] Start: 05-10-2023 End: 05-10-2023 Office outpatient visit 25 minutes Sukh Brewer PA-C Work Phone: [facility] Procedures Date Procedure Procedure Detail Performing Clinician Start: 11-08-2022 Comprehensive metabo lic panel Sukh Brewer PA-C Work Phone: Start: 02-17-2022 Thyrotropin [Units/v olume] in Serum or Plasma Sukh Brewer PA-C Work Phone: Start: 08-17-2021 Lipid 1996 panel - S yo or Plasma Sukh Brewer PA-C Work Phone: Plan of Treatment Date Care Activity Detail Author Start: 08-17-2026 Lipid panel Lipid Panel [facility] Start: 09-01-2023 End: 09-01-2023 Patient encounter procedure 09/01/2023 9:00 AM EDT Office Visit [facility] [address] [place] [address] Stoney Erazo, [address] [place] [address] [facility] Start: 05-10-2023 End: 05-10-2023 Patient encounter procedure [facility] Start: 02-17-2023 Thyroid stimulating hormone measurement TSH Level [facility] Start: 01-20-2023 Influenza vaccination Influenza Vacc ine (#1) [facility] Start: 11-07-2022 End: 11-08-2023 CBC W Auto Differential panel - Blood CBC auto differential Lab Routine Anemia, unspecified type Expected: 11/07/2022 (Approximate), Expires: 11/08/2023 [facility] Work Phone: Immunizations Immunization Date Immunization Notes Care Provider Fa cility 02-17-2022 Influenza, Seasonal, Quadrivalent, Adjuvanted Sukh Brewer PA-C Work Phone: [facility] 02-17-2022 influenza virus vacc ine, unspecified formulation Sukh Brewer PA-C Work Phone: [facility] 08-28-2021 zoster vaccine recombinant J brad Brewer PA-C Work Phone: [facility] 03-07-2021 Influenza, Seasonal, Quadrivalent, Adjuvanted Sukh PATTERSON-Isabella Work Phone: [facility] 03-07-2021 zoster vaccine recombinant J bradzack Marieo PA-C Work Phone: [facility] 02-11-2020 Influenza, High-dose Seasonal, Quadrivalent, Preservative Free Sukh PATTERSON-Isabella Work Phone: [facility] 03-04-2019 influenza, high dose seasonal, preservative-free Sukh PATTERSON-Isabella Work Phone: [facility] 03-20-2018 influenza, injectabl e, quadrivalent, preservative free Sukh Brewer PA-C Work Phone: [facility] 11-27-2017 pneumococcal polysac charide vaccine, 23 valent Sukh Brewer PA-C Work Phone: [facility] 06-01-2016 pneumococcal conjuga te vaccine, 13 valent Sukh Brewer PA-C Work Phone: [facility] 03-01-2016 influenza, injectabl e, quadrivalent, contains preservative Sukh Brewer PA-C Work Phone: [facility] Payers Date Payer Category Payer Unknown [employer] MEDICARE SUPPLEMENT [id number] 2021-Present [address] [place] [address] Supplement [id number] 2021 Unknown [id number] 2017 Medicare MEDICARE MEDICAR E PART A AND B [id number] 2017-Present [address] [place] [address] Medicare [id number] 2017 Medicare [id number] Social History Date Type Detail Facility Start: 11-07-2022 Tobacco smoking status VAIS Ex-smoke r [facility] End: [birth year]02-1964 History of tobacco use Current smoker [facility] End: [birth year]-02-1964 History of tobacco use Cigarette Smoker [facility] Start: 08-01-2022 End: 05-10-2023 Alcohol intake Current non-drinker of alcohol (finding) [facility] Start: 08-01-2022 End: 11-07-2022 Alcohol intake [facility] Start: 1940 Sex Assigned At Male S [facility] Start: 11-07-2022 Tobacco use and exposure Smokeless t obacco non-user [facility] Start: 11-07-2022 Tobacco use panel [facility] Start: 07-25-2022 Gender identity Identifies as male gender (finding) [facility] Start: 03-10-2022 Sexual orientation Heterosexual (dwight valenzuela) [facility] Start: 10-28-2022 End: 11-07-2022 Exposure to SARS-CoV-2 (event) Not sure [facility] Clinical Notes 08-01-2022 to 05-10-2023 Assessment & Plan Note - Sukh Brewer PA-C - 05/10/2023 8:16 AM ESTAssessment & Plan Note - Sukh Brewer PA-C - 05/10/2023 8:16 AM ESTSukh Brewer PA-C - 05/10/2023 7:20 AM EST Note Date & Type Note Facility 05-10-2023 Evaluation + Plan note Associ ated Problem(s): Stage 3a chronic kidney disease (HCC) - Chronic stable most recent GFR was 59. Continue to monitor closely monitor and encourage plenty fluids. [facility] 05-10-2023 Miscellaneous Notes Associate d Problem(s): Stage 3a chronic kidney disease (HCC) - Chronic stable most recent GFR was 59. Continue to monitor closely monitor and encourage plenty fluids. Associated Problem(s): Prostate cancer (HCC) - Chronic stable PSAs continue to be low continues to follow-up with urology no reported concerns. Associated Problem(s): PAF (paroxysmal atrial fibrillation) (HCC) - Chronic stable continues to follow-up with cardiology normal sinus rhythm today continues on Eliquis occasional reported nosebleeds nothing currently. Most recent carotid Doppler performed at [facility] were negative. Associated Problem(s): Essential hypertension - Chronic stable we will continue on hydrochlorothiazide 12.5 mg daily. Also continue lisinopril 20 mg daily Associated Problem(s): Seizure (HCC) - New onset isolated tonic-clonic seizure with postictal period lasting about an hour. Seen by neurology CT head MRI brain EEG were all negative, no current antiepileptics prescribed, driving restrictions for 3 months. documented in this encounter [facility] 05-10-2023 Evaluation + Plan note Associ ated Problem(s): Prostate cancer (HCC) - Chronic stable PSAs continue to be low continues to follow-up with urology no reported concerns. [facility] 05-10-2023 Evaluation + Plan note Associ ated Problem(s): PAF (paroxysmal atrial fibrillation) (HCC) - Chronic stable continues to follow-up with cardiology normal sinus rhythm today continues on Eliquis occasional reported nosebleeds nothing currently. Most recent carotid Doppler performed at [facility] were negative. [facility] 05-10-2023 Evaluation + Plan note Associ ated Problem(s): Essential hypertension - Chronic stable we will continue on hydrochlorothiazide 12.5 mg daily. Also continue lisinopril 20 mg daily [facility] 05-10-2023 Evaluation + Plan note Associ ated Problem(s): Seizure (HCC) - New onset isolated tonic-clonic seizure with postictal period lasting about an hour. Seen by neurology CT head MRI brain EEG were all negative, no current antiepileptics prescribed, driving restrictions for 3 months. [facility] 05-10-2023 History of Presen t illness Narrative Images from the original note were not included. [facility] [address] [facility] [address] Dept: [phone] Dept Loc: [phone] Visit type: Established Patient Reason for Visit: Follow-up (Med check) Assessment and Plan 1. Seizure (HCC) Assessment & Plan: - New onset isolated tonic-clonic seizure with postictal period lasting about an hour. Seen by neurology CT head MRI brain EEG were all negative, no current antiepileptics prescribed, driving restrictions for 3 months. 2. Prostate cancer ([facility]) Assessment & Plan: - Chronic stable PSAs continue to be low continues to follow-up with urology no reported concerns. 3. Stage 3a chronic kidney disease ([facility]) Assessment & Plan: - Chronic stable most recent GFR was 59. Continue to monitor closely monitor and encourage plenty fluids. 4. Essential hypertension Assessment & Plan: - Chronic stable we will continue on hydrochlorothiazide 12.5 mg daily. Also continue lisinopril 20 mg daily 5. PAF (paroxysmal atrial fibrillation) ([facility]) Assessment & Plan: - Chronic stable continues to follow-up with cardiology normal sinus rhythm today continues on Eliquis occasional reported nosebleeds nothing currently. Most recent carotid Doppler performed at [facility] were negative. 6. Epistaxis Comments: Not current, periodic in nature history of Eliquis use encouraged Afrin use twice daily for no more than 3 days to control nosebleeds Follow up to be scheduled with PCP!. Patient otherwise reports doing well today No acute issues. Will continue to follow-up with neurology in August of next year he denies any acute shortness of breath chest pain palpitations abdominal pain appetites been good. Otherwise he continues to follow-up with a specialist as needed. Most recent blood work was reviewed from his most recent admission other than the chronic kidney disease were no other acute abnormalities. Subjective HPI This is an 82-year-old male with a history of hypertension, CKD, hypothyroidism, paroxysmal atrial fibrillation on chronic anticoagulation (Eliquis) and remote prostate cancer presents to the office for checkup. Baseline labs were checked in October did show chronic kidney disease, with a GFR 53.9. No previous reported bleeding problems despite being on Eliquis does suffer from mild chronic anemia with hemoglobin just above 12 however appears to be chronic 3 weeks (04/17) ago had a seizure while sitting in recliner, had a big day out and about. Last about 30 seconds, full body shaking, and then post ictal period, was taken to [place] [facility], amnestic to the event. Had a virtual appointment with neurology in [place]. Started on Keppra bid, but then not continued, CT head was negative, MRI was done and EEG were done and were negative. So driving restrictions for 3 months. Last time numbness and pain in left shoulder/neck was told had pinched nerve, and has gone away, saw cardiology and ordered carotid doppler was done at [facility] and was negative. Prostate issues,has follow up with urology in July. Occ nosebleeds. Discussed use afrin Review of Systems Constitutional: Negative for chills and fever. HENT: Positive for nosebleeds. Negative for congestion and sore throat. Respiratory: Negative for cough and shortness of breath. Cardiovascular: Negative for chest pain. Gastrointestinal: Negative for abdominal pain, diarrhea, nausea and vomiting. Genitourinary: Positive for frequency. Negative for difficulty urinating. Musculoskeletal: Negative for back pain and neck pain. Neurological: Positive for seizures. Negative for dizziness, tremors, speech difficulty, weakness and light-headedness. All other systems reviewed and are negative. Allergies Allergen Reactions Cephalexin Diarrhea Other reaction(s): diarrhea Other reaction(s): diarrhea Other reaction(s): U Other reaction(s): diarrhea Niacin Other reaction(s): PT UNSURE OF REACTION Other reaction(s): PT UNSURE OF REACTION Other reaction(s): PT UNSURE OF REACTION Other reaction(s): U Other reaction(s): PT UNSURE OF REACTION Outpatient Medications Prior to Visit Medication Sig Dispense Refill cholecalciferol (Vitamin D-3) 25 MCG (1000 UT) capsule Take by mouth. cyanocobalamin (Vitamin B-12) 2500 MCG tablet Take 3,000 mcg by mouth daily. Eliquis 5 MG tablet Take 1 tablet (5 mg) by mouth 2 times daily. 180 tablet 1 hydroCHLOROthiazide (HYDRODiuril) 25 MG tablet Take 0.5 tablets (12.5 mg) by mouth daily. 90 tablet 1 levothyroxine (Synthroid, Levoxyl) 125 MCG tablet Take 1 tablet (125 mcg) by mouth daily. 90 tablet 1 lisinopril 20 MG tablet Take 1 tablet (20 mg) by mouth daily. 90 tablet 1 omeprazole (PriLOSEC) [address] capsule Take 1 capsule (20 mg) by mouth in the morning and 1 capsule (20 mg) in the evening. Take before meals. 180 capsule 1 simvastatin (Zocor) 20 MG tablet Take 1 tablet (20 mg) by mouth Nightly. 90 tablet 1 Multiple Vitamins-Minerals (multivitamin with minerals) tablet Take 1 tablet by mouth daily. No facility-administered medications prior to visit. Past Medical History: Diagnosis Date Esophageal reflux 1997 History of basal cell carcinoma Dr. Bangura History of pancreatitis 2009 History of squamous cell carcinoma of skin Dr. Polanco/ [place] Hypercholesteremia 1998 Hypertension 1998 Hypothyroidism 2003 PAF (paroxysmal atrial fibrillation) ([facility]) 02/2019 nml ECHO 08/07 Prostate cancer ([facility]) 03/2020 Social History Tobacco Use Smoking status: Former Packs/day: 1 Types: Cigarettes Quit date: 12/02/1964 Years since quittin.4 Smokeless tobacco: Never Substance Use Topics Alcohol use: No Alcohol/week: 0.0 standard drinks of alcohol Past Surgical History: Procedure Laterality Date BLEPHAROPLASTY (HISTORICAL) 10/19/2017 CATARACT EXTRACTION Bilateral 2006 CHOLECYSTECTOMY 2007 COLONOSCOPY 2003 COLONOSCOPY 2013 [place]- ? repeat CYSTOURETHROSCOPY/URETHRAL DILATION (HISTORICAL) 2018 EYE SURGERY Left 11/07/2013 retinal surgery HAND SURGERY left hand graft HEMORRHOIDECTOMY (HISTORICAL) 07/13/2009 KNEE SURGERY Left 12/2008 partial knee replacement QUADRICEPS TENDON REPAIR right quad repair SKIN CANCER EXCISION Right 09/2015 Right ear and left shoulder UMBILICAL HERNIA REPAIR 2004 UPPER GASTROINTESTINAL ENDOSCOPY 05/2002 UPPER GASTROINTESTINAL ENDOSCOPY 2013 VENTRAL HERNIA REPAIR 07/2004 Family History Problem Relation Name Age of Onset Heart disease Daughter 38.00 Supraventricular tachycardia that required ablation Other ([address]) Brother tractor accident age 55 No Known Problems Paternal Grandmother Heart disease Father age 98 No Known Problems Maternal Grandmother No Known Problems Brother Heart attack Father 90.00 stents No Known Problems Paternal Grandfather No Known Problems Sister Heart disease Sister Supraventricular tachycardia that required ablation No Known Problems Sister No Known Problems Son No Known Problems Brother Hypertension Mother age 92-CVA Other (54134) Sister hole in esophagus Heart disease Maternal Grandfather Objective BP 112/72 (BP Location: Right arm, Patient Position: Sitting, BP Cuff Size: Adult) Pulse 96 Temp 36.1 C (97 F) (Temporal) Ht 5' 10 (1.778 m) Wt 206 lb (93.4 kg) SpO2 97% BMI 29.56 kg/m Physical Exam Vitals reviewed. Constitutional: General: He is not in acute distress. Appearance: Normal appearance. He is not toxic-appearing. Eyes: General: No scleral icterus. Conjunctiva/sclera: Conjunctivae normal. Pupils: Pupils are equal, round, and reactive to light. Neck: Vascular: No carotid bruit. Cardiovascular: Rate and Rhythm: Normal rate and regular rhythm. Heart sounds: Normal heart sounds. No murmur heard. Pulmonary: Effort: Pulmonary effort is normal. No respiratory distress. Breath sounds: Normal breath sounds. No wheezing or rales. Abdominal: General: Bowel sounds are normal. There is no distension. Palpations: There is no mass. Tenderness: There is no abdominal tenderness. There is no guarding. Musculoskeletal: Cervical back: Normal range of motion and neck supple. No rigidity or tenderness. Right lower leg: Edema present. Left lower leg: Edema present. Comments: Very mild nonpitting peripheral edema bilaterally Lymphadenopathy: Cervical: No cervical adenopathy. Skin: General: Skin is warm and dry. Neurological: Mental Status: He is alert. Psychiatric: Mood and Affect: Mood normal. Data Reviewed and Summarized Labs: Imaging/Testing: Sukh Brewer PA-C 05/10/2023 Please note that portions of this note may have been completed with voice recognition software. Documentation reviewed prior to signing but minor errors in classroom assistant may have occurred. documented in this encounter [facility] 02-20-2023 Telephone encount er Note Rx loaded [facility] 02-20-2023 Miscellaneous Notes Formattin g of this note might be different from the original. Rx loaded documented in this encounter [facility] 11-07-2022 Evaluation + Plan note Associ ated Problem(s): Anemia - Chronic and stable last hemoglobin was 12.3 iron studies normal suspect anemia of chronic disease versus renal insufficiency - History of on Eliquis with history of paroxysmal A-fib saw GI 2021 and had a scope done shows no signs of bleeding. [facility] 11-07-2022 Miscellaneous Notes Associate d Problem(s): Anemia - Chronic and stable last hemoglobin was 12.3 iron studies normal suspect anemia of chronic disease versus renal insufficiency - History of on Eliquis with history of paroxysmal A-fib saw GI 2021 and had a scope done shows no signs of bleeding. Associated Problem(s): Essential hypertension - chronic and stable continue on current medication hydrochlorothiazide 25 mg daily, lisinopril 20 mg daily documented in this encounter [facility] 11-07-2022 Evaluation + Plan note Associ ated Problem(s): Essential hypertension - chronic and stable continue on current medication hydrochlorothiazide 25 mg daily, lisinopril 20 mg daily [facility] 11-07-2022 History of Presen t illness Narrative Images from the original note were not included. [facility] [address] [facility] [address] Dept: [phone] Dept Loc: [phone] Visit type: Established Patient Reason for Visit: Follow-up (3 month) and Dizziness Assessment and Plan 1. Essential hypertension Assessment & Plan: - chronic and stable continue on current medication hydrochlorothiazide 25 mg daily, lisinopril 20 mg daily Orders: - Comprehensive metabolic panel 2. Anemia, unspecified type Assessment & Plan: - Chronic and stable last hemoglobin was 12.3 iron studies normal suspect anemia of chronic disease versus renal insufficiency - History of on Eliquis with history of paroxysmal A-fib saw GI 2021 and had a scope done shows no signs of bleeding. Orders: - CBC auto differential 3. Cervical radiculopathy Comments: Intermittent sensation of numbness and tingling left side of the neck and of the left shoulder concern for possible cervical disc disease. Orders: - XR cervical spine complete 4 to 5 views -Patient's neuro exam shows no signs of neurologic deficit or weakness no lateralizing signs or facial droop cranial nerves intact low index suspicion that this is cranial nature. - Considered cardiac in etiology as the pains in his left shoulder and he describes more of a transient periodic numbness and tingling sensation. Initially thought maybe is coming from his carotid he had previous vascular studies done which shows mild stenotic disease of the carotids bilaterally less than 50% is not significant in nature. Follow up in about 6 months (around 05/09/2023). Subjective HPI This is an 82-year-old male with a history of hypertension, hypothyroidism, paroxysmal atrial fibrillation on chronic anticoagulation and remote prostate cancer presents to the office for checkup. Patient was seen approximate 3 months ago for some issues with the low blood pressure as well as concerns of some swelling in his neck a carotid ultrasound was ordered however was obtained at [facility] and showed mild stenosis of both carotid arteries. . Previous blood work was also ordered and never obtained. Blood work in January 2022 did show some mild elevation of the BUN and creatinine as well as slight decrease in the H&H. Does have a history of chronic anemia and continues to follow-up with GI. PSAs have been chronically low and he continues to follow-up with urology. Continues to endorse numbness and tingling sensation, in the left shoulder, also endorses dizziness from time to time ana if after sitting a while the shoulder bothers him, as well as the dizzy comes on only lasting several minutes. Paulges went to ER in July, nothing was found. States he had a full work-up in the ER in July for all of the symptoms nothing seems to be noted at that point time. He just attributes it necessarily to being 82 years of age. Patient also endorses that he is seeing cardiology and discussed with cardiology they do not feel that this is cardiac in origin. Continues to follow up with urology for PSA. Review of Systems Constitutional: Negative for chills and fever. HENT: Negative for congestion and sore throat. Respiratory: Negative for cough and shortness of breath. Cardiovascular: Negative for chest pain. Gastrointestinal: Negative for abdominal pain, diarrhea, nausea and vomiting. Genitourinary: Negative for difficulty urinating. Musculoskeletal: Negative for back pain and neck pain. Neurological: Positive for dizziness and numbness. Negative for light-headedness. All other systems reviewed and are negative. Allergies Allergen Reactions Cephalexin Diarrhea Other reaction(s): diarrhea Other reaction(s): diarrhea Other reaction(s): U Other reaction(s): diarrhea Niacin Other reaction(s): PT UNSURE OF REACTION Other reaction(s): PT UNSURE OF REACTION Other reaction(s): PT UNSURE OF REACTION Other reaction(s): U Other reaction(s): PT UNSURE OF REACTION Outpatient Medications Prior to Visit Medication Sig Dispense Refill cholecalciferol (Vitamin D-3) 25 MCG (1000 UT) capsule Take by mouth. Eliquis 5 MG tablet Take 1 tablet (5 mg) by mouth 2 times daily. 180 tablet 1 hydroCHLOROthiazide (HYDRODiuril) 25 MG tablet Take 0.5 tablets (12.5 mg) by mouth daily. 90 tablet 1 levothyroxine (Synthroid, Levoxyl) 125 MCG tablet Take 1 tablet (125 mcg) by mouth daily. 90 tablet 1 lisinopril 20 MG tablet Take 1 tablet (20 mg) by mouth daily. 90 tablet 1 Multiple Vitamins-Minerals (multivitamin with minerals) tablet Take 1 tablet by mouth daily. omeprazole (PriLOSEC) [address] capsule Take 1 capsule (20 mg) by mouth in the morning and 1 capsule (20 mg) in the evening. Take before meals. 180 capsule 1 simvastatin (Zocor) 20 MG tablet Take 1 tablet (20 mg) by mouth Nightly. 90 tablet 1 No facility-administered medications prior to visit. Past Medical History: Diagnosis Date Esophageal reflux 1997 History of basal cell carcinoma Dr. Bangura History of pancreatitis 2009 History of squamous cell carcinoma of skin Dr. Polanco/ [place] Hypercholesteremia 1998 Hypertension 1998 Hypothyroidism 2003 PAF (paroxysmal atrial fibrillation) (CMS/HCC) (HCC) 02/2019 nml ECHO 08/07 Prostate cancer (HCC) 03/2020 Social History Tobacco Use Smoking status: Former Packs/day: 1.00 Types: Cigarettes Quit date: 12/02/1964 Years since quittin.9 Smokeless tobacco: Never Substance Use Topics Alcohol use: No Alcohol/week: 0.0 standard drinks of alcohol Past Surgical History: Procedure Laterality Date BLEPHAROPLASTY (HISTORICAL) 10/19/2017 CATARACT EXTRACTION Bilateral 2006 CHOLECYSTECTOMY 2007 COLONOSCOPY 2003 COLONOSCOPY 2013 [place]- ? repeat CYSTOURETHROSCOPY/URETHRAL DILATION (HISTORICAL) 2018 EYE SURGERY Left 11/07/2013 retinal surgery HAND SURGERY left hand graft HEMORRHOIDECTOMY (HISTORICAL) 07/13/2009 KNEE SURGERY Left 12/2008 partial knee replacement QUADRICEPS TENDON REPAIR right quad repair SKIN CANCER EXCISION Right 09/2015 Right ear and left shoulder UMBILICAL HERNIA REPAIR 2004 UPPER GASTROINTESTINAL ENDOSCOPY 05/2002 UPPER GASTROINTESTINAL ENDOSCOPY 2013 VENTRAL HERNIA REPAIR 07/2004 Family History Problem Relation Name Age of Onset Heart disease Daughter 38.00 Supraventricular tachycardia that required ablation Other (60601) Brother tractor accident age 55 No Known Problems Paternal Grandmother Heart disease Father age 98 No Known Problems Maternal Grandmother No Known Problems Brother Heart attack Father 90.00 stents No Known Problems Paternal Grandfather No Known Problems Sister Heart disease Sister Supraventricular tachycardia that required ablation No Known Problems Sister No Known Problems Son No Known Problems Brother Hypertension Mother age 92-CVA Other (66469) Sister hole in esophagus Heart disease Maternal Grandfather Objective BP (!) 145/81 (BP Location: Left arm, Patient Position: Sitting, BP Cuff Size: Large adult) Pulse 58 Temp 36.4 C (97.5 F) (Temporal) Ht 5' 10 (1.778 m) Wt 201 lb (91.2 kg) SpO2 96% BMI 28.84 kg/m Physical Exam Vitals and nursing note reviewed. Constitutional: General: He is not in acute distress. Appearance: Normal appearance. He is not toxic-appearing. HENT: Right Ear: Tympanic membrane and ear canal normal. Left Ear: Tympanic membrane and ear canal normal. Nose: Nose normal. No congestion. Mouth/Throat: Mouth: Mucous membranes are moist. Pharynx: No oropharyngeal exudate or posterior oropharyngeal erythema. Eyes: General: No scleral icterus. Conjunctiva/sclera: Conjunctivae normal. Pupils: Pupils are equal, round, and reactive to light. Cardiovascular: Rate and Rhythm: Normal rate and regular rhythm. Heart sounds: Normal heart sounds. No murmur heard. Pulmonary: Effort: Pulmonary effort is normal. No respiratory distress. Breath sounds: Normal breath sounds. No wheezing or rales. Abdominal: General: There is no distension. Palpations: Abdomen is soft. Tenderness: There is no abdominal tenderness. There is no guarding. Musculoskeletal: Cervical back: Normal range of motion and neck supple. Right lower leg: No edema. Left lower leg: No edema. Skin: General: Skin is warm and dry. Neurological: General: No focal deficit present. Mental Status: He is alert and oriented to person, place, and time. Cranial Nerves: No cranial nerve deficit. Sensory: No sensory deficit. Coordination: Coordination normal. Gait: Gait normal. Psychiatric: Mood and Affect: Mood normal. Data Reviewed and Summarized Labs: Imaging/Testing: Sukh Brewer PA-C 11/07/2022 Please note that portions of this note may have been completed with voice recognition software. Documentation reviewed prior to signing but minor errors in classroom assistant may have occurred. documented in this encounter [facility] 08-01-2022 History of Presen t illness Narrative Images from the original note were not included. [facility] [address] [place] [address] Dept: [phone] Dept Loc: [phone] Visit type: Established Patient Reason for Visit: Medication Check Assessment and Plan 1. Dizziness Comments: Transient dizziness will evaluate carotid ultrasound, decrease hydrochlorothiazide from 25 to 12.5 mg daily and continue to watch blood pressure Orders: - Vascular US carotid artery duplex bilateral 2. Essential hypertension Comments: Secondary to intermittent dizziness as well as persistently low blood pressure will decrease dose of hydrochlorothiazide to 12.5 mg daily Orders: - Comprehensive metabolic panel - hydroCHLOROthiazide (HYDRODiuril) 25 MG tablet; Take 0.5 tablets (12.5 mg) by mouth daily., Starting 08/01/2022, Normal - lisinopril 20 MG tablet; Take 1 tablet (20 mg) by mouth daily., Starting Mon08/01/2022, Normal 3. PAF (paroxysmal atrial fibrillation) (CMS/HCC) (HCC) Comments: No recurrent A-fib currently on Eliquis encouraged to discuss with cardiology the need to continue on Eliquis. Not currently on any antiarrhythmic 4. Gastroesophageal reflux disease without esophagitis Comments: Continue omeprazole as directed 20 mg daily Orders: - omeprazole (PriLOSEC) [address] capsule; Take 1 capsule (20 mg) by mouth in the morning and 1 capsule (20 mg) in the evening. Take before meals., Starting Mon08/01/2022, Normal 5. Hypothyroidism, unspecified type Comments: Continue on Synthroid 125 mcg daily Orders: - levothyroxine (Synthroid, Levoxyl) 125 MCG tablet; Take 1 tablet (125 mcg) by mouth daily., Starting Mon08/01/2022, Normal 6. Chronic anticoagulation Comments: Discussed with cardiology appreciate their recommendation or opinion on continuing Eliquis daily. Orders: - Eliquis 5 MG tablet; Take 1 tablet (5 mg) by mouth 2 times daily., Starting Mon08/01/2022, Normal 7. Hypercholesterolemia Comments: Continue on simvastatin 20 mg daily no reported myalgias Orders: - simvastatin (Zocor) 20 MG tablet; Take 1 tablet (20 mg) by mouth Nightly., Starting Mon08/01/2022, Normal Follow up in about 3 months (around 11/01/2022). He was seen in the ER several days ago for this feeling of unusual nodes in his neck. He states sometimes just feels like there is warmth underneath the skin or something unusual with the skin or the muscles in the left side only of his neck. There is no obvious bruits in his neck but he also complains of an intermittent sensation of dizziness or diabetes or an unsteadiness on his feet. Because of the sensations and feelings we will decrease his blood pressure medication to try to bring his blood pressure up as his been persistently running low. We will also get a carotid ultrasound to make sure there is no signs of vascular occlusion. He is not exhibiting any TIA or strokelike symptoms. And I do not appreciate any carotid bruits at this time. All questions were answered at the bedside is at the bedside as well. Did discuss with him as well as his pressure last time was 107 systolic today is 118. But if he persistently remains low and has symptoms we could consider decreasing his lisinopril as well. We will reevaluate in 3 months. Time spent with the patient was 39 minutes HPI This is an 81-year-old male with a history of hypertension, hypothyroidism, paroxysmal atrial fibrillation on chronic anticoagulation and remote prostate cancer presents to the office for checkup. Patient's PSA that was just recently done 0.01. Continues to follow up with urology, and had radiation in 2020. Patient has chronic anemia, however recent levels are coming up. He has seen gastroenterology for this. He had a camera endoscopy that was unremarkable. New symptom feeling that his throat is going numb, roughly 2 weeks ago. Described as worms crawling under the skin but not pins and needles. Went to ER in [place], didn't find any reason. Since Xmas time, feeling a little doppy, or unsteady at times. 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 But states hearing is ok. No problems swallowing. Feels pretty good overall. Taking Vitamins currently. Reviewed blood work Hgb was 13.2 and Bun/cr about same as before bun 24. Overall the patient denies any current complaints other than the neck as described. He denies any shortness of breath chest pain or palpitations no fever no chills no rigors. He does state he gets up periodically in the evening in the nighttime to urinate. He does have scheduled follow-ups with cardiology tomorrow and coming up with urology discuss ongoing PSAs within the next couple weeks. Denies any current fall injury or trauma. acts as an independent historian for the patient. Review of Systems Constitutional: Negative for chills and fever. HENT: Negative for congestion and sore throat. Respiratory: Negative for cough and shortness of breath. Cardiovascular: Negative for chest pain. Gastrointestinal: Negative for abdominal pain, diarrhea, nausea and vomiting. Genitourinary: Negative for difficulty urinating and dysuria. Musculoskeletal: Negative for back pain and neck pain. Neurological: Positive for dizziness and light-headedness. Negative for syncope, speech difficulty, weakness, numbness and headaches. All other systems reviewed and are negative. Allergies Allergen Reactions Cephalexin Diarrhea Other reaction(s): diarrhea Other reaction(s): diarrhea Other reaction(s): U Other reaction(s): diarrhea Niacin Other reaction(s): PT UNSURE OF REACTION Other reaction(s): PT UNSURE OF REACTION Other reaction(s): PT UNSURE OF REACTION Other reaction(s): U Other reaction(s): PT UNSURE OF REACTION Outpatient Medications Prior to Visit Medication Sig Dispense Refill Eliquis 5 MG tablet Take 1 tablet (5 mg) by mouth 2 times daily. 180 tablet 0 hydroCHLOROthiazide (HYDRODiuril) 25 MG tablet Take 25 mg by mouth daily. levothyroxine (Synthroid, Levoxyl) 125 MCG tablet Take 125 mcg by mouth daily. lisinopril 20 MG tablet Take 20 mg by mouth daily. omeprazole (PriLOSEC) [address] capsule Take 1 capsule by mouth in the morning and 1 capsule in the evening. Take before meals. simvastatin (Zocor) 20 MG tablet Take 20 mg by mouth Nightly. No facility-administered medications prior to visit. Past Medical History: Diagnosis Date Esophageal reflux 1997 History of basal cell carcinoma Dr. Bangura History of pancreatitis 2009 History of squamous cell carcinoma of skin Dr. Polanco/ [place] Hypercholesteremia 1998 Hypertension 1997 Hypothyroidism 2003 PAF (paroxysmal atrial fibrillation) (CMS/HCC) ([facility]) 02/2019 nml ECHO 08/07 Prostate cancer (CMS/HCC) ([facility]) 03/2020 Social History Tobacco Use Smoking status: Former Packs/day: 1.00 Types: Cigarettes Quit date: 12/02/1964 Years since quittin.7 Smokeless tobacco: Never Substance Use Topics Alcohol use: No Alcohol/week: 0.0 standard drinks Past Surgical History: Procedure Laterality Date BLEPHAROPLASTY (HISTORICAL) 10/19/2017 CATARACT EXTRACTION Bilateral 2006 CHOLECYSTECTOMY 2007 COLONOSCOPY 2004 COLONOSCOPY 2013 [place]- ? repeat CYSTOURETHROSCOPY/URETHRAL DILATION (HISTORICAL) 2018 EYE SURGERY Left 11/07/2013 retinal surgery HAND SURGERY left hand graft HEMORRHOIDECTOMY (HISTORICAL) 07/13/2009 KNEE SURGERY Left 12/2008 partial knee replacement QUADRICEPS TENDON REPAIR right quad repair SKIN CANCER EXCISION Right 09/2015 Right ear and left shoulder UMBILICAL HERNIA REPAIR 2004 UPPER GASTROINTESTINAL ENDOSCOPY 05/2002 UPPER GASTROINTESTINAL ENDOSCOPY 2013 VENTRAL HERNIA REPAIR 07/2004 Family History Problem Relation Name Age of Onset Heart disease Daughter 38.00 Supraventricular tachycardia that required ablation Other (13432) Brother tractor accident age 55 No Known Problems Paternal Grandmother Heart disease Father age 98 No Known Problems Maternal Grandmother No Known Problems Brother Heart attack Father 90.00 stents No Known Problems Paternal Grandfather No Known Problems Sister Heart disease Sister Supraventricular tachycardia that required ablation No Known Problems Sister No Known Problems Son No Known Problems Brother Hypertension Mother age 92-CVA Other (48062) Sister hole in esophagus Heart disease Maternal Grandfather Objective BP 118/76 (BP Location: Left arm, Patient Position: Sitting, BP Cuff Size: Large adult) Pulse 85 Temp 36.6 C (97.8 F) (Temporal) Ht 5' 10 (1.778 m) Wt 202 lb (91.6 kg) SpO2 96% BMI 28.98 kg/m Physical Exam Constitutional: General: He is not in acute distress. Appearance: Normal appearance. He is not ill-appearing or toxic-appearing. HENT: Mouth/Throat: Mouth: Mucous membranes are moist. Pharynx: Oropharynx is clear. Eyes: Extraocular Movements: Extraocular movements intact. Pupils: Pupils are equal, round, and reactive to light. Neck: Vascular: No carotid bruit. Cardiovascular: Rate and Rhythm: Normal rate and regular rhythm. Heart sounds: Normal heart sounds. No murmur heard. Pulmonary: Effort: Pulmonary effort is normal. No respiratory distress. Breath sounds: Normal breath sounds. No wheezing or rales. Abdominal: General: Bowel sounds are normal. Palpations: Abdomen is soft. Tenderness: There is no abdominal tenderness. There is no guarding. Musculoskeletal: Cervical back: Normal range of motion and neck supple. No rigidity or tenderness. Right lower leg: No edema. Left lower leg: No edema. Lymphadenopathy: Cervical: No cervical adenopathy. Skin: General: Skin is warm and dry. Coloration: Skin is not jaundiced or pale. Neurological: Mental Status: He is alert. Data Reviewed and Summarized Labs: Imaging/Testing: Sukh Brewer PA-C 08/01/2022 Please note that portions of this note may have been completed with voice recognition software. Documentation reviewed prior to signing but minor errors in classroom assistant may have occurred. documented in this encounter [facility] Essential hypertension- Primary Unspecified essential hypertension Anemia, unspecified type Cervical radiculopathy Brachial neuritis or radiculitis nos [facility] Diagnosis Cervical radiculopathy Brachial neuritis or radiculitis nos documented [facility]* Diagnosis Essential (primary) hypertension- Primary Unspecified essential hypertension Anemia, unspecified documented [facility] encounter [facility]* Diagnosis Chronic anticoagulation Encounter for long-term (current) use of anticoagulants Essential hypertension Unspecified essential hypertension Hypothyroidism, unspecified type Hypercholesterolemia Pure hypercholesterolemia [facility] Diagnosis Seizure (HCC)- Primary Other convulsions Prostate cancer (HCC) Malignant neoplasm of prostate Stage 3a chronic kidney disease (HCC) Essential hypertension Unspecified essential hypertension PAF (paroxysmal atrial fibrillation) (HCC) Atrial fibrillation Epistaxis documented in this encounter [facility] Reason for Referral Specialty Diagnoses / Procedures Referred By Virginia argueta Referred To Contact Cardiology Diagnoses Dizziness Procedures Vascular US carotid artery duplex bilateral Sukh Brewer PA-C [address] [place] [address] [address] Referral ID Status Reason Start Date Expiration Date Visits Requested Visits Authorized [id number] Authorized Perform Procedure 08/01/2022 01/28/2023 1 1 Summary Purpose Family History No Family History Records Found Advance Directives No Advanced Directives Records Found Additional Source Comments Reason for Visit (unrecogniz ed section and content) Reason Comments Follow-up 3 month Dizziness Reason Onset Date Comments Med Refill 02/20/2023 Reason Comments Follow-up Med check Care Teams (unrecognized sec tion and content) Web Operations Manager Relationship Specialty Start Date End Date Stoney Erazo DO [address] [place] [address] PCP - General Family Medicine 08/01/22 Web Operations Manager Relationship Specialty Start Date End Date Stoney Erazo DO [address] [place] [address] PCP - General Family Medicine 08/01/22 Web Operations Manager Relationship Specialty Start Date End Date Stoney Erazo, [address] [facility] [place] [address] PCP - General [facility] [place] 08/01/22 Web Operations Manager Relationship Specialty Start Date End Date Stoney Erazo DO [address] [facility] [place] [address] PCP - [facility] 08/01/22 Web Operations Manager Relationship Specialty Start Date End Date Stoney Erazo, DO [address] [facility] [place] [id number] PCP - [facility] 08/01/22 Web Operations Manager Relationship Specialty Start Date End Date Stoney Erazo DO [address] [place] [address] [address] [place] [address] PCP - [facility] 08/01/22 (unrecognized sect ion and content) No Status Records Found INFORMATION SOURCE (unrecogn ized section and content) FOR RECORDS PERTAINING TO PATIENTS WHO ARE OR HAVE BEEN ENROLLED IN A CHEMICAL DEPENDENCY/SUBSTANCEABUSE PROGRAM, SOME INFORMATION MAY BE OMITTED. This clinical summary was aggregated from multiple sources. Caution should be exercised in using it in the provision of clinical care. This summary normalizes information from multiple sources, and as a consequence, information in this document may materially change the coding, format and clinical context of patient data. In addition, data may be omitted in some cases. CLINICAL DECISIONS SHOULD BE BASED ON THE PRIMARY CLINICAL RECORDS. [facility] [employer] [facility]. provides no warranty or guarantee of the accuracy or completeness of information in this document.
--- NOTE | 2023-06-07 20:00 | EX.ED.DYSGE1 ---
HPI History of Present Illness Chief Complaint: Seizure Narrative Narrative: 82-year-old male presenting with family out of concern for possible seizure. Family states that a couple months ago he had a seizure and was admitted to the hospital. He states he had CT brain, MRI brain, EEG, neurology consult and there was no seizure noted. Patient had no witnessed seizure activity. Patient ultimately discharged home without any seizure medications. Patient states that the last that he can remember is getting up this morning and going out to the garage for a few hours where he burned his heater and works on an engine. Patient states he does this all the time without any difficulty. Patient states he does not drink alcohol or do drugs. Patient states lasting he can recall is coming into the house at about 1:00 and taking a nap in his chair. Patient's states that he got up and went back out to the garage for few hours and came back and and laid back down in his chair between 4 and 5 because she was doing laundry. She states he tried to arouse him and he was arousable although he was not talking and was not fully awake and he was trying to get out of the chair but she was pushing him into the chair. She noticed that he did urinate on himself. She also notes a magazine rack that showed a chair was knocked over. She did not witness any seizure activity. Patient does not recall any of this. Patient recalls waking up when he got to the emergency room which is much later after the symptoms. He does not recall any of the afternoon since 1:00. Patient is on Eliquis with history of A-fib. Denies any head injury. States his garage is well ventilated is no concern for carbon oxide or other inhalation. Otherwise healthy prior to this event. Patient denies headache, nausea, vomiting, blurred vision, slurred speech, difficulty moving extremities. [facility] Medical History Anemia Basal cell carcinoma BPH (benign prostatic hyperplasia) Chronic a-fib Chronic anticoagulation Chronic kidney disease Dupuytren contracture Epistaxis Essential (primary) hypertension GERD (gastroesophageal reflux disease) History of pancreatitis Hyperlipidemia Hypothyroidism Idiopathic acute pancreatitis Non-sustained ventricular tachycardia Paroxysmal atrial fibrillation Prostate cancer Seizure Sinus pause Syncope (03/2019) Home Medications simvastatin 20 mg tablet 20 mg PO QHS cholesterol 04/24/19 [History Last Taken 09/06/20] apixaban 5 mg tablet 5 mg PO BID blood thinner 04/02/20 [History Last Taken 09/07/20] lisinopril 20 mg tablet 20 mg PO QHS bp 04/02/20 [History Last Taken 09/06/20] levothyroxine 125 mcg tablet 125 mcg PO DAILY 10/01/20 [History Last Taken Unknown] cholecalciferol (vitamin D3) 25 mcg (1,000 unit) capsule 50 mcg PO DAILY 10/05/21 [History Last Taken Unknown] multivitamin 1 tab PO DAILY 10/05/21 [History Last Taken Unknown] omeprazole 20 mg capsule,delayed release 20 mg PO BID reflux 08/02/22 [History Last Taken Unknown] hydrochlorothiazide 25 mg tablet 12.5 mg PO DAILY bp 04/17/23 [History Last Taken Unknown] Allergy/AdvReac Type Severity Reaction Status Date / Time cephalexin AdvReac diarrhea Verified 04/18/23 00:42 niacin AdvReac PT UNSURE Verified 04/18/23 00:42 OF REACTION Family History Father Heart disease CAD (coronary artery disease) Sister Heart disease SVT Mother CVA (cerebral vascular accident) Daughter Heart disease SVT Surgical History H/O blepharoplasty H/O hemorrhoidectomy H/O knee surgery H/O umbilical hernia repair History of cataract surgery History of cholecystectomy History of ventral hernia repair Hx of appendectomy S/P cystourethroscopy with dilation of urethral stricture Social History household members: spouse Smoking Status: Former smoker quit date: 12/02/1964 alcohol intake: never substance use type: does not use caffeine: Yes Type: coffee Number of servings: 3 ROS ROS ED Constitutional Constitutional ED: Denies chills, fever(s) or sweats Eyes Eyes: Denies blurry vision or change in vision ENT ENT ED: Denies ear pain or sore throat Cardiovascular Cardiovascular: Denies chest pain, palpitations or racing heartbeat Respiratory/Chest Respiratory/Chest: Denies cough, dyspnea or sputum Gastrointestinal Gastrointestinal: Denies abdominal pain, constipation, diarrhea, nausea or vomiting Genitourinary Genitourinary ED: Denies dysuria, hematuria or urinary frequency Musculoskeletal Musculoskeletal: Denies arthralgias, myalgias or neck pain Integumentary Denies abscess, Abrasions or rash Neurologic Neurologic: Denies headache(s), paresthesias or weakness Psychiatric Psychiatric: Denies anxiety, depression, suicidal ideation or suicidal thoughts Endocrine Endocrinology: Denies polydipsia or polyuria EXAM Physical Exam Const Vital Signs: 06/07/23 18:26 06/07/23 18:37 06/07/23 19:48 Temperature 98.0 F Temperature Source Temporal Pulse Rate 99 Respiratory Rate 14 Blood Pressure 118/67 138/74 H Blood Pressure Mean 84 95 Pulse Ox 92 Oxygen Delivery Method Room Air Oxygen Flow Rate (L/min) 06/07/23 21:37 06/07/23 21:45 06/07/23 23:00 Temperature Temperature Source Pulse Rate 104 H 90 Respiratory Rate 20 H 18 Blood Pressure 184/79 H 127/74 H 93/66 Blood Pressure Mean 114 91 75 Pulse Ox 98 93 Oxygen Delivery Method Non-Rebreather Room Air Oxygen Flow Rate (L/min) 15 Positive well nourished General Appearance ED: NAD; Negative for pallor HEENT Reports moist mucous membranes Negative for trauma Eyes PERRL and EOMs intact bilaterally Neck no lymphadenopathy Chest Wall inspection of chest normal Resp normal respiratory effort and clear to auscultation bilaterally Auscultation: Negative for rales, rhonchi or wheezes Cardio regular rate and regular rhythm GI normal to inspection, nondistended, normoactive bowel sounds Auscultation: normoactive bowel sounds Neuro oriented x3, CN's II-XII intact bilaterally and no sensory deficits noted Neuro Narrative: No focal neurologic deficits or lateralizing signs or symptoms. Sensorium / Orientation: alert Motor Exam: strength 5/5 throughout Psych mental status grossly normal Skin no rashes or lesions noted General Skin Exam: Negative for jaundice or pallor MDM MDM MDM Narrative Medical decision making narrative: 82-year-old male with history of altered mental status today. No witnessed seizures. He does not remember anything this afternoon after 1:00. His is concerned he might of had a seizure and states he was somewhat arousable prior to EMS arrival but she was holding him in his chair and he was not speaking. She did notice at that time that he had urinated on himself. Patient denies any symptoms and does not remember anything today until he arrived in the ER. Differential includes seizure, intracranial hemorrhage, dementia, dehydration, anemia, electro abnormalities. Patient with no history of sleepwalking or sleep apnea per his . No history of head trauma. CBC will be obtained to assess with blood cell count, hemoglobin, platelets. CMP to assess liver function, renal function, electrolytes, glucose. High-sensitivity troponin EKG to assess for ischemia demonstrated. Chest x-ray to rule out pneumonia or CHF. COVID, influenza, RSV will be obtained to rule out viral etiologies. CT brain to rule out intracranial hemorrhage or other acute abnormalities. EKG on my interpretation shows A-fib at a controlled response 24 bpm. Patient given a liter of normal saline. CBC showed a normal white blood cell count 9.8. Hemoglobin stable at 13.9. Creatinine is elevated today mildly at 1.63 but not significantly at baseline. Electrolytes are normal. Lactic acid 1.2. Total bilirubin mildly elevated 1.1 otherwise LFTs are normal. Urinalysis negative for infection. EtOH negative. Urine drug screen negative. CT brain shows no acute process. I was called to the room as patient was having some kind of seizure-like activity. Patient was pursed lip breathing and appeared to be turning blue. Oxygen was placed on him. Nursing staff kept his airway open. No tonic-clonic seizure activity noted. He was given a milligram of Ativan. Seems to be postictal after this. Given this I spoke with the hospitalist who stated that he would recommend the patient be transferred to a tertiary facility had neurology on board as the patient has already had the extent of what he could have here previously. Discussed with the family who wanted to try to go to [facility]. I discussed with the transfer line who stated that they would have to be on a waiting list. I did request to speak with neurology however the transfer line refused and stated that they would have the hospitalist call. I did inform them that although the patient was on a wait list he would need neurologic care and he still having seizure-like activity so I would prefer to speak with neurology. I am currently waiting callback. Will obtain chest x-ray as the patient is postictal pulse ox is 93%. Chest x-ray my interpretation shows no acute process. The radiologist interprets this and agrees. Patient will be signed out incoming physician for monitoring. Impression: 1. New onset seizure Lab Data Attestation: I reviewed the patient's lab results. Labs: Laboratory Results - last 24 hr 06/07/23 06/07/23 18:49 20:40 WBC 9.8 RBC 4.70 Hgb 13.9 Hct 42.9 MCV 91.3 MCH 29.6 MCHC 32.4 RDW Std Deviation 46.8 H RDW Coeff of Ksenia 13.8 Plt Count 220 MPV 11.0 Immature Gran % (Auto) 0.500 Neut % (Auto) 83.8 H Lymph % (Auto) 8.8 L Lucas % (Auto) 6.6 Eos % (Auto) 0.0 Baso % (Auto) 0.3 Absolute Neuts (auto) 8.2 H Absolute Lymphs (auto) 0.87 Nucleated RBC % 0 Sodium 140 Potassium 3.5 Chloride 105 Carbon Dioxide 30.0 Anion Gap 5 BUN 19 H Creatinine 1.63 H Estim Creat Clear Calc 39.87 Est GFR (MDRD) Af Amer 52 L Est GFR (MDRD) Non-Af 43 L BUN/Creatinine Ratio 11.7 Glucose 108 H Lactic Acid 1.2 Calcium 9.2 Total Bilirubin 1.10 H AST 26 ALT 28 Alkaline Phosphatase 88 Troponin I High Sens 10 Total Protein 7.0 Albumin 3.8 Globulin 3.2 Albumin/Globulin Ratio 1.2 Urine Color Yellow Urine Clarity Clear Urine pH 7.0 Ur Specific [place] 1.010 Urine Protein 15 H Urine Glucose (UA) Normal Urine Ketones 15 H Urine Occult Blood Negative Urine Nitrite Negative Urine Bilirubin Negative Urine Urobilinogen Normal Ur Leukocyte Esterase Negative Urine RBC 0 SEEN Urine WBC 0 SEEN Ur Squamous Epith Cells 0 SEEN Urine Bacteria 0 SEEN Urine Mucus 0 SEEN Urine Opiates Screen NEGATIVE Urine Methadone Screen NEGATIVE Ur Barbiturates Screen NEGATIVE Ur Phencyclidine Scrn NEGATIVE Ur Amphetamines Screen NEGATIVE MDMA (Ecstasy) Screen NEGATIVE U Benzodiazepines Scrn NEGATIVE Urine Cocaine Screen NEGATIVE U Cannabinoids Screen NEGATIVE Ur Drug Screen Comment Ethyl Alcohol < 3.0 Radiography Diagnostic Testing: Clinical Impression(s) from Imaging Studies Brain CT 06/07/23 19:54 IMPRESSION: Normal unenhanced CT scan of the brain. Electronically Signed: Gerardo Fountain MD at 21:37 EST , Chest X-Ray 06/07/23 23:15 IMPRESSION: Poor inspiration with some bibasilar atelectasis. Cardiomegaly. Electronically Signed: Gerardo Fountain MD at 23:28 EST , Discharge Plan Triage Chief Complaint: Seizure ED Provider: Omar Mckeon Dx/Rx/DC Orders Prescriptions: No Action omeprazole 20 mg capsule,delayed release(DR/EC) 20 mg PO BID simvastatin 20 mg tablet 20 mg PO QHS levothyroxine 125 mcg tablet 125 mcg PO DAILY cholecalciferol (vitamin D3) 25 mcg (1,000 unit) capsule 50 mcg PO DAILY multivitamin Tablet 1 tab PO DAILY lisinopril 20 MG tablet 20 mg PO QHS apixaban 5 MG tablet 5 mg PO BID Patient Comments: stop 3 days preop as directed hydrochlorothiazide 25 MG tablet 12.5 mg PO DAILY Primary Care Provider: Stoney Erazo Referrals: Stoney Erazo DO [Primary Care Provider] - Capacity [employer] Machine Set Up Operator Reflex Medical hold order details:: IF a medical hold is selected below, a suggested order for a MEDICAL HOLD will reflex upon signing the document. Next of kin: [place] law dictates a PRIORITY LIST for identifying legal decision-maker/legal next of kin in the following order (LNOK): 1st: The patient?s legal guardian, if any 2nd: The patient's spouse (if status is questionable, consult Risk Management) 3rd: The patient?s adult child(johan) (majority, if multiple children) 4th: The patient?s parents 5th: The patient?s adult siblings (majority, if multiple children siblings)
[2023-06-07] MEDS: 0.9% Normal Saline (1000mL) 1,000 ML 999 ML IV (20:02)
[2023-06-07 20:25] LABS: Absolute Lymphocyte Count 0.87 X10^3/uL (0.83-4.51); Absolute Neutrophil Count 8.2 X10^3/uL (2.0-7.7); Basophil# 0.03 X10^3/uL; Basophil% 0.3 % (0-1); Hematocrit 42.9 % (40-54); Hemoglobin 13.9 g/dL (13.0-16.5); Lymphocyte # 0.87 X10^3/ul (0.83-4.51); Lymphocyte % 8.8 % (19-41); Mean Corp Hgb Conc 32.4 g/dL (32-36); Mean Corpuscular Hgb 29.6 pg (27.0-32.0); Mean Corpuscular Volume 91.3 fL (80-94); Monocyte# 0.65 X10^3/uL; Monocyte% 6.6 % (0-10); NRBC Flagged by Analyzer 0 % (0-5); Neutrophil # 8.24 X10^3/uL (2.7-7.7); Neutrophil % 83.8 % (47-70); Platelet Count 220 K/mm3 (150-450); RBC Distribution Width CV 13.8 % (11.6-14.6); RBC Distribution Width SD 46.8 fl (35.1-43.9); White Blood Count 9.8 K/mm3 (4.4-11.0)
[2023-06-07 20:47] LABS: Alcohol, Blood (Medical)-Serum < 3.0 mg/dL
[2023-06-07 20:51] LABS: Bacteria 0 SEEN /hpf (None Seen); Mucous, Urine 0 SEEN /hpf (<or=2+); Red Blood Cells-Urine 0 SEEN /hpf (0-5); Squamous Epithelial Cells - UA 0 SEEN /hpf (0-5); White Blood Cells 0 SEEN /hpf (0-5)
[2023-06-07 20:52] LABS: Lactic Acid 1.2 mmol/L (0.4-1.9)
[2023-06-07 20:54] LABS: ALB/GLOB Ratio 1.2 RATIO (0.9-2.4); AST(SGOT) 26 U/L (15-37); Alanine Aminotransfer ALT/SGPT 28 U/L (16-61); Albumin, Serum 3.8 g/dL (3.2-5.0); Alkaline Phosphatase 88 U/L (45-117); Anion Gap 5 (5-15); BUN 19 mg/dL (7-18); BUN/Creat Ratio 11.7 RATIO (10-20); Calcium,Total 9.2 mg/dL (8.5-10.1); Chloride 105 mmol/L (98-107); Creatinine, Serum 1.63 mg/dL (0.70-1.30); EST Glomerular Filtration Rate 43 mL/min (>60); Est Glom Filt Rate - Afr Amer 52 mL/min (>60); Estimated Creatinine Clearance 39.87 ml/min; Globulin 3.2 g/dL (2.2-4.2); Glucose 108 mg/dL (74-106); Potassium 3.5 mmol/L (3.5-5.1); Sodium Level 140 mmol/L (136-145); Troponin-I HS 10 pg/mL (3.0-78.0)
[2023-06-07 20:55] LABS: Color, Urine Yellow (Yellow); Glucose, Dipstick Normal (Normal); Ketone-Dipstick 15 mg/dl (Negative); Leukocyte Esterase-Dipstick Negative /ul (Negative); Nitrite-Dipstick Negative (Negative); Occult Blood-Urine Negative /ul (Negative); Protein-Dipstick 15 mg/dl (Negative); Urine Bilirubin Dipstick Negative (Negative); Urine Clarity Clear (Clear); Urine Urobilinogen Normal (Normal)
[2023-06-07 21:11] LABS: Amphetamine Urine VISTA NEGATIVE (<1000 ng/mL); Barbiturate Urine VISTA NEGATIVE (< 200 ng/mL); Benzodiazepine Urine VISTA NEGATIVE (< 200 ng/mL); Cocaine Urine VISTA NEGATIVE (< 300 ng/mL); Ecstacy Urine VISTA NEGATIVE (< 500 ng/mL); Methadone Urine VISTA NEGATIVE (< 300 ng/mL); PCP Urine VISTA NEGATIVE (< 25 ng/mL); THC Urine VISTA NEGATIVE (< 50 ng/mL); Vista UDS pH Range 7
[2023-06-07] MEDS: LORazepam 2 MG/ML Syringe 1 MG IV (21:38)
--- NOTE | 2023-06-07 21:48 | ED.RN ---
ISRRAEL CALLED OUT OF THE ROOM STATING THAT THE PATIENT WAS HAVING ANOTHER EPISODE. PATIENT FOUND RIGID AND SHAKING. NONREBREATHER APPLIED DUE TO O2 STATS DROPPING. POSITIVE COLOR CHANGE ONCE O2 WAS APPLIED. NOTED THAT PATIENT'S BOTTOM LIP WAS BLEEDING. SUCTIONED AND TOLERATED WELL. TOP DENTURES REMOVED. DR. CALLE NOTIFIED. VERBAL ORDER OF 1MG IV ATIVAN.
--- NOTE | 2023-06-07 21:54 | HP.PCM.HOS_ITS ---
[facility] - General General Date of Admission: 06/08/23 Date of Service: 06/07/23 Chief Complaint: Amnesia, urinary incontinence and suspected seizure activity. HPI Narrative NICOLLE CONWAY, is a 82 M with a past medical history of essential h ypertension, hyperlipidemia, hypothyroidism, overweight; with BMI of 29.2 this admission, chronic atrial fibrillation; on apixaban, history of NSVT, history of idiopathic pancreatitis, history of basal cell carcinoma, history of Dupuytren's contracture, BPH; with history of prostate cancer, GERD, osteoarthritis, history of syncope (03/2019) and history of suspected seizure activity with extensive workup undertaken in March 2023; with patient noted to have brief shaking periods followed by unresponsiveness with an unremarkable MRI and EEG at that time resulting in him not being started on AED who presents to [facility] ER complaining of a similar episode with amnesia, urinary incontinence and suspected seizure activity. Mr. Conway reports that he does not remember getting up this morning and going out to the garage for a few hours where he went to work on an engine which is typical for him. He further states the last thing he can recall is coming into the house around 1 PM and taking a nap in his chair. The patient's then stated that he got up and went back out to the garage for a few hours and then came back and lay down in his chair between 4 PM and 5 PM because she was doing laundry. She states she then tried to arouse him and though he will wake up he was not able to fully awaken or talk and he was noted to be incontinent of urine. She did not witness any seizure activity nor does the patient remember any of the events described above. He denies any recent head injury and he states his garage is well ventilated with little concern for carbon monoxide poisoning. He states he has been otherwise healthy prior to this event and he denies recent medication changes. He also denies associated headache, tongue laceration, fever, chills, nausea, vomiting, blurred vision, slurred speech or difficulty moving extremities. In the ER the patient underwent a CT scan of the head that was negative for acute pathologic changes that would explain his symptomatology and his laboratory studies were similarly unremarkable in the setting of appa rently progressively worsening neurologic function with previous suspected seizure activity with postictal period now complicated by amnesia, urinary incontinence and what sounds like an absence type seizure disorder. After a long discussion with the ER attending it was mutually decided that this patient will be better served by transfer to a tertiary care facility where he can undergo a more thorough neurologic evaluation that can be done at this institution at this time given the fact that he underwent a complete workup here in late March that was unrevealing compounded by the fact that his condition seems to be deteriorating. The patient then had a witnessed suspected seizure in the ER and he was treated with IV Ativan and IV Keppra with patient now somnolent but arousable. Therefore, he should be transferred to a tertiary care facility as soon as a bed becomes available but until that time we will admit him here and consult [facility] teleneurology to evaluate him along with repeat EEG and MRI. [facility] Medical History Anemia Basal cell carcinoma BPH (benign prostatic hyperplasia) Chronic a-fib Chronic anticoagulation Chronic kidney disease Dupuytren contracture Epistaxis Essential (primary) hypertension GERD (gastroesophageal reflux disease) History of pancreatitis Hyperlipidemia Hypothyroidism Idiopathic acute pancreatitis Non-sustained ventricular tachycardia Paroxysmal atrial fibrillation Prostate cancer Seizure Sinus pause Syncope (03/2019) Home Medications simvastatin 20 mg tablet 20 mg PO QHS cholesterol 04/24/19 [History Last Taken 09/06/20] apixaban 5 mg tablet 5 mg PO BID blood thinner 04/02/20 [History Last Taken 09/07/20] lisinopril 20 mg tablet 20 mg PO QHS bp 04/02/20 [History Last Taken 09/06/20] levothyroxine 125 mcg tablet 125 mcg PO DAILY 10/01/20 [History Last Taken Unknown] cholecalciferol (vitamin D3) 25 mcg (1,000 unit) capsule 50 mcg PO DAILY 10/05/21 [History Last Taken Unknown] multivitamin 1 tab PO DAILY 10/05/21 [History Last Taken Unknown] omeprazole 20 mg capsule,delayed release 20 mg PO BID reflux 08/02/22 [History Last Taken Unknown] hydrochlorothiazide 25 mg tablet 12.5 mg PO DAILY bp 04/17/23 [History Last Taken Unknown] Allergy/AdvReac Type Severity Reaction Status Date / Time cephalexin AdvReac diarrhea Verified 04/18/23 00:42 niacin AdvReac PT UNSURE Verified 04/18/23 00:42 OF REACTION Family History Father Heart disease CAD (coronary artery disease) Sister Heart disease SVT Mother CVA (cerebral vascular accident) Daughter Heart disease SVT Surgical History H/O blepharoplasty H/O hemorrhoidectomy H/O knee surgery H/O umbilical hernia repair History of cataract surgery History of cholecystectomy History of ventral hernia repair Hx of appendectomy S/P cystourethroscopy with dilation of urethral stricture Social History household members: spouse Smoking Status: Former smoker quit date: 12/02/1964 alcohol intake: never substance use type: does not use caffeine: Yes Type: coffee Number of servings: 3 ROS ROS Narrative Review of systems: General: Patient denies fever or chills. HENT: Denies headache, denies stuffy nose, denies sore throat, denies tongue lacerations EYES: Denies changes in vision Resp: Denies cough, denies shortness of breath Cardiac: Denies chest pain or palpitations. GI: Denies abdominal pain, denies changes in bowel, had some nausea : Patient was noted to have an episode of urinary incontinence though he does not remember it. Extremity: Denies swelling Musculoskeletal: Patient denies arthralgias or myalgias. Neuro: Patient admits to amnesia having a very fragmented memory of today's events as per HPI. He denies related headache, paresthesias or focal neurologic weakness. Heme: Denies any bleeding or bruising Skin: Denies rashes Psychiatric: No complaints voiced related to uncontrolled depression or anxiety. Endocrine: No polyuria, polydipsia or polyphagia. The rest of the 14 point ROS was negative except for positives in HPI. Vital Signs Vital Signs Vital Signs: 06/07/23 18:26 06/07/23 18:37 06/07/23 19:48 Temperature 98.0 F Temperature Source Temporal Pulse Rate 99 Respiratory Rate 14 Blood Pressure 118/67 138/74 H Blood Pressure Mean 84 95 Pulse Ox 92 Oxygen Delivery Method Room Air Oxygen Flow Rate (L/min) 06/07/23 21:37 06/07/23 21:45 Temperature Temperature Source Pulse Rate 104 H Respiratory Rate 20 H Blood Pressure 184/79 H 127/74 H Blood Pressure Mean 114 91 Pulse Ox 98 Oxygen Delivery Method Non-Rebreather Oxygen Flow Rate (L/min) 15 Weight Weight: 203 lb 4.259 oz Body Mass Index (BMI) 29.1 Physical Exam Const alert, oriented x3, no apparent distress, average body habitus and healthy appearing General Appearance: cooperative HEENT normocephalic, head/scalp atraumatic, hearing grossly normal bilaterally and mo ist oral mucous membranes Eyes PERRL and EOMs intact bilaterally Neck no lymphadenopathy and supple Resp normal respiratory effort, no retractions, no use of accessory muscles and clear to auscultation bilaterally Cardio regular rate and regular rhythm GI normal to inspection, nondistended, normoactive bowel sounds and soft to palpation Extremity normal to inspection, full ROM and no clubbing, cyanosis or edema Skin Skin Narrative: Patient has no evidence of rash or abscess at this time. Neuro CN's II-XII intact bilaterally, moves all extremities and no focal motor deficits Neuro Narrative: Patient is lethargic but arousable after receiving IV Ativan. Psych affect normal Results Medical Records Data Attestation: I reviewed the patient's medical records Lab / Micro Data Attestation: I reviewed the patient's lab results. 06/07/23 18:49 06/07/23 18:49 Labs: Laboratory Results - last 24 hr 06/07/23 18:49: WBC 9.8, RBC 4.70, Hgb 13.9, Hct 42.9, MCV 91.3, MCH 29.6, MCHC 32.4, RDW Std Deviation 46.8 H, RDW Coeff of Ksenia 13.8, Plt Count 220, MPV 11.0, Immature Gran % (Auto) 0.500, Neut % (Auto) 83.8 H, Lymph % (Auto) 8.8 L, Dickenson % (Auto) 6.6, Eos % (Auto) 0.0, Baso % (Auto) 0.3, Absolute Neuts (auto) 8.2 H, Absolute Lymphs (auto) 0.87, Nucleated RBC % 0, Sodium 140, Potassium 3.5, Chloride 105, Carbon Dioxide 30.0, Anion Gap 5, BUN 19 H, Creatinine 1.63 H, Estim Creat Clear Calc 39.87, Est GFR (MDRD) Af Amer 52 L, Est GFR (MDRD) Non-Af 43 L, BUN/Creatinine Ratio 11.7, Glucose 108 H, Lactic Acid 1.2, Calcium 9.2, Total Bilirubin 1.10 H, AST 26, ALT 28, Alkaline Phosphatase 88, Troponin I High Sens 10, Total Protein 7.0, Albumin 3.8, Globulin 3.2, Albumin/Globulin Ratio 1.2, Ethyl Alcohol < 3.0 06/07/23 20:40: Urine Color Yellow, Urine Clarity Clear, Urine pH 7.0, Ur S pecific [place] 1.010, Urine Protein 15 H, Urine Glucose (UA) Normal, Urine Ketones 15 H, Urine Occult Blood Negative, Urine Nitrite Negative, Urine Bilir ubin Negative, Urine Urobilinogen Normal, Ur Leukocyte Esterase Negative, Urine RBC 0 SEEN, Urine WBC 0 SEEN, Ur Squamous Epith Cells 0 SEEN, Urine Bacteria 0 SEEN, Urine Mucus 0 SEEN, Urine Opiates Screen NEGATIVE, Urine Methadone Screen NEGATIVE, Ur Barbiturates Screen NEGATIVE, Ur Phencyclidine Scrn NEGATIVE, Ur Amphetamines Screen NEGATIVE, MDMA (Ecstasy) Screen NEGATIVE, U Benzodiazepines Scrn NEGATIVE, Urine Cocaine Screen NEGATIVE, U Cannabinoids Screen NEGATIVE, Ur Drug Screen Comment Micro: Microbiology 06/07/23 18:49 Mucosa - Nose SARS-CoV-2, Influenza & RSV (PCR) - Final Imagaing Radiology Impression Brain CT 06/07/23 19:54 IMPRESSION: Normal unenhanced CT scan of the brain. Electronically Signed: Gerardo Fountain MD at 21:37 EST , Assessment & Plan Assessment/Plan (1) Amnesia: (2) Urinary incontinence: QUALIFIERS: Urinary Incontinence type: unspecified incontinence Qualified Code(s): R32 - Unspecified urinary incontinence (3) Seizure disorder: PLAN: Plan 1. Amnesia, urinary incontinence and suspected absence type seizure; recurrent with negative workup done here in late March 2023 including MRI brain and EEG - Admit to CDU under observation status until patient can be safely transferred to a tertiary care facility to undergo a thorough neurologic evaluation to the underlying etiology of his worsening symptoms can be ascertained. Check prolactin level as this can be elevated in a postictal state. Give IV Ativan for obvious breakthrough tonic-clonic seizure activity and continue Keppra begun in the ER after he had a witnessed event while there. Finally, while we are awaiting transfer to tertiary care facility we will recheck EEG and MRI of the brain w/o contrast plus we will reconsult [facility] telene[facility]rology to see this patient this admission and perhaps help to facilitate his transfer with help appreciated in advance. 2. Essential hypertension - Continue home medications as previous. Give IV hydralazine as needed for systolic blood pressure greater than 160 mmHg. 3. Hyperlipidemia - Resume statin. 4. Hypothyroidism - Continue Synthroid as previous and check TSH. 5. Overweight; with BMI of 29.2 this admission - Weight loss will be recommended. 6. Chronic atrial fibrillation; on apixaban - Resume Apixaban as previous. 7. History of NSVT - Noted. 8. History of idiopathic pancreatitis - Noted no signs of recurrence at this time. 9. History of basal cell carcinoma - Noted. 10. History of Dupuytren's contracture - Noted. 11. BPH; with history of prostate cancer - Apparently stable. 12. GERD - Continue PPI. 13. Osteoarthritis - Give Tylenol as needed. 14. DVT prophylaxis - Patient is already on apixaban for #6 which will be continued. Total time: Approximately 55 minutes. Charges/Coding Visit Charges Inpatient E&M: 55243 Init Hosp L2
[2023-06-07] MEDS: levETIRAcetam IV 1,500 MG in 0.9% Normal Saline (100mL Bag) 100 ML 460 MG IV (22:32)
--- NOTE | 2023-06-07 23:15 | RAD_ITS ---
STUDY: X-RAY CHEST REASON FOR EXAM: Male, 82 years old. dyspnea TECHNIQUE: Single AP portable view of the chest. COMPARISON: 04/17/2023 FINDINGS: Poor inspiration with some bibasilar atelectasis. There is no demonstrated pleural abnormality. There is moderate cardiac enlargement. Normal mediastinum and viral. Normal visualized pulmonary arteries. There is atherosclerotic tortuosity of the aortic arch and descending thoracic aorta. Normal visualized thoracic spine. Normal visualized ribs, clavicles, and shoulders. There is no demonstrated abnormality of the visualized soft tissue structures of the upper abdomen. RAD/Chest 1 View (Portable) IMPRESSION: Poor inspiration with some bibasilar atelectasis. Cardiomegaly. Electronically Signed: Gerardo Fountain MD at 23:28 EST ,
--- NOTE | 2023-06-07 23:56 | ED.RN ---
NOTED BILATERAL SWELLING IN HANDS. UNABLE TO MOVED WRIST BAND. DR. MONTESINOS NOTIFIED. MAINTENANCE FLUIDS HELD. OLD WRIST BAND REMOVED AND NEW ONE APPLIED.
[2023-06-08] VITALS (9 sets, daily range): BP systolic 91–130; BP diastolic 65–86; PULSE 62–88; RESP 14–18; TEMP 35.7–36.6; O2SAT 87–99; BMI 29.0
--- NOTE | 2023-06-08 01:39 | ED.RN ---
CALLED [facility] TRANSFER AT [phone], THEY SAID THEY'D CALL BACK WITH NEUROLOGY; NEVER CALLED. [facility] WAS CALLED AGAIN AT [phone], TO [address] AGAIN, THEY SAID THEY PAGED AND TEXTED. THEY SAID THEY WOULD CALL BACK AFTER THEY GET [facility] OF THE DR; HAVE YET TO HEAR BACK FROM THEM.
--- NOTE | 2023-06-08 02:17 | MRI_ITS ---
STUDY: MRI BRAIN WITHOUT CONTRAST REASON FOR EXAM: Male, 82 years old. Seizure TECHNIQUE: Standardized multiplanar fat and water weighted pulse sequences were obtained. COMPARISON: 06/07/2023 CT head, 04/18/2023 MRI brain FINDINGS: There is mild cerebral atrophy with widening of the extra-axial spaces and ventricular dilatation. There are a limited number of small white matter hyperintensities, distributed throughout the deep white matter tracts of the cerebral hemispheres, consistent with mild chronic white matter ischemic changes. There is no evidence for recent intracranial ischemia or other cause of cytotoxic edema on diffusion weighted imaging (DWI). Normal T2* images of the brain without demonstrated susceptibility artifact. There is no demonstrated hemosiderin stain. Normal bilateral basal ganglia. Normal thalami. There is no extra-axial fluid accumulation. Normal flow voids within the major intracranial circulation suggesting patency by spin echo criteria. Normal sella turcica, pituitary gland, infundibular stalk, optic chiasm and hypothalamus. Normal tectal plate and pineal gland. Normal midbrain, jaron and medulla. Normal cerebellum. Normal basal cisterns. Normal bilateral temporal bones. Normal bilateral internal auditory canals. No demonstrated orbital abnormality, within the constraints of a routine brain study. Normal visualized paranasal sinuses. Normal calvarium and skull base. Normal visualized soft tissue structures. Normal visualized upper cervical spine. MRI/Brain without Contrast IMPRESSION: Senescent changes with no evidence of acute intracranial bleed, mass or ischemia. Electronically Signed: Stoney Rouse DO at 15:49 EST ,
--- OUTSIDE RECORDS SUMMARY | 2023-06-08 02:43 | XMS RPT_ITS | CCD ---
Author Name Unknown Address [address] [place] [address] Organization [facility] Care Team Providers Care Public Affairs Officer Name Role Phone Stoney Erazo DO Primary Care Provider SUKH BREWER Attending Unavailable URBANO, STONEY Primary Care Unavailable SUKH BREWER Attending Unavailable STONEY ERAZO Primary Care Unavailable SUKH BREWER Attending Unavailable URBANO, STONEY Primary Care Unavailable SUKH BREWER Attending Unavailable SUKH BREWER Referring Unavailable STONEY ERAZO Primary Care Unavailable SUKH BREWER Attending Unavailable STONEY ERAZO Primary Care Unavailable Allergies Allergy Classification Reported Allergen(s) Allergy Type Date of Onset Reaction(s) Facility (9 sources) Cephalexin Drug Allergy 11-01-2018 Diarrhea [facility] (9 sources) Niacin Drug Allergy 04-08-2020 [facility] Medications Current Medications Medication Drug Class(es) Dates [...] sources) Long-term current use of anticoagulant; Translations: [terminal gauger (current) use of anticoagulants] Episodic Other upper [...] 11-04-2022 03-03-2022 Chronic Other aftercare (2 sources) [facility] (current) use of anticoagulants; Translations: [terminal gauger (current) use of anticoagulants] Onset: 08-01-2022 Episodic [...] 08:01-0500 Diastolic blood pressure 72 mm[Hg] Sukh Brewer PA-C Work Phone: [facility] 05-10-2023 08:01-0500 Systolic blood pressure 112 mm[Hg] Sukh Brewer PA-C Work Phone: [facility] 05-10-2023 07:05-0500 Body height 177.8 cm Sukh Brewer PA-C Work Phone: [facility] 05-10-2023 07:05-0500 Body mass index (BMI) [Ratio] 29.56 kg/m2 Sukh Brewer PA-C Work Phone: [facility] 05-10-2023 07:05-0500 Body temperature 97 [degF] Sukh Brewer PA-C Work Phone: [facility] 05-10-2023 07:05-0500 Body weight 93.44 kg Sukh Brewer PA-C Work Phone: [facility] 05-10-2023 07:05-0500 Heart rate 96 /min Sukh Brewer PA-C Work Phone: [facility] 05-10-2023 07:05-0500 SaO2% (BldA) [Mass fraction] 97 % Sukh Brewer PA-C Work Phone: [facility] 11-07-2022 07:20-0400 Body height 177.8 cm Sukh Brewer PA-C Work Phone: [facility] 11-07-2022 07:20-0400 Body mass index (BMI) [Ratio] 28.84 kg/m2 Sukh Brewer PA-C Work Phone: [facility] 11-07-2022 07:20-0400 Body temperature 97.5 [degF] Sukh Brewer PA-C Work Phone: [facility] 11-07-2022 07:20-0400 Body weight 91.17 kg Sukh Brewer PA-C Work Phone: [facility] 11-07-2022 07:20-0400 Diastolic blood pressure 81 mm[Hg] Sukh Brewer PA-C Work Phone: [facility] 11-07-2022 07:20-0400 Heart rate 58 /min Sukh Brewer PA-C Work Phone: [facility] 11-07-2022 07:20-0400 SaO2% (BldA) [Mass fraction] 96 % Sukh Brewer PA-C Work Phone: [facility] 11-07-2022 07:20-0400 Systolic blood pressure 145 mm[Hg] Sukh Brewer PA-C Work Phone: [facility] 08-01-2022 07:25-0400 Body height 177.8 cm Sukh Brewer PA-C Work Phone: [facility] 08-01-2022 07:25-0400 Body mass index (BMI) [Ratio] 28.98 kg/m2 Sukh Brewer PA-C Work Phone: [facility] 08-01-2022 07:25-0400 Body temperature 97.81 [degF] Sukh PATTERSON-C Work Phone: [facility] 08-01-2022 07:25-0400 Body weight 91.63 kg Sukh PATTERSON-Isabella Work Phone: [facility] 08-01-2022 07:25-0400 Diastolic blood pressure 76 mm[Hg] Sukh Brewer PA-C Work Phone: [facility] 08-01-2022 07:25-0400 Heart rate 85 /min Sukh Brewer PA-C Work Phone: [facility] 08-01-2022 07:25-0400 SaO2% (BldA) [Mass fraction] 96 % Sukh Brewer PA-C Work Phone: [facility] 08-01-2022 07:25-0400 Systolic blood pressure 118 mm[Hg] Sukh Brewer PA-C Work Phone: [facility] Encounters Encounter Date Encounter Type Care Provider Facility Start: 05-10-2023 End: 05-10-2023 ambulatory SUKH BREWER [facility] Start: 05-10-2023 End: 05-10-2023 Office outpatient visit 25 minutes Sukh Brewer PA-C Work Phone: [facility] Procedures Date Procedure [...] Author Start: 08-17-2026 Lipid panel Lipid Panel [facility] Start: 09-01-2023 End: 09-01-2023 Patient encounter procedure 09/01/2023 9:00 AM EDT Office Visit [facility] [address] [place] [address] Stoney Erazo, [address] [place] [address] [facility] Start: 05-10-2023 End: 05-10-2023 Patient encounter procedure [facility] Start: 02-17-2023 Thyroid stimulating hormone measurement TSH Level [facility] Start: 01-20-2023 Influenza vaccination Influenza Vacc ine (#1) [facility] Start: 11-07-2022 End: 11-08-2023 CBC W Auto Differential panel - Blood CBC auto differential Lab Routine Anemia, unspecified type Expected: 11/07/2022 (Approximate), Expires: 11/08/2023 [facility] Work Phone: Immunizations Immunization Date Immunization Notes Care Provider Fa cility 02-17-2022 Influenza, Seasonal, Quadrivalent, Adjuvanted Sukh Brewer PA-C Work Phone: [facility] 02-17-2022 influenza virus vacc ine, unspecified formulation Sukh Brewer PA-C Work Phone: [facility] 08-28-2021 zoster vaccine recombinant J brad Brewer PA-C Work Phone: [facility] 03-07-2021 Influenza, Seasonal, Quadrivalent, Adjuvanted Sukh PATTERSON-Isabella Work Phone: [facility] 03-07-2021 zoster vaccine recombinant J bradzack Marieo PA-C Work Phone: [facility] 02-11-2020 Influenza, High-dose Seasonal, Quadrivalent, Preservative Free Sukh PATTERSON-Isabella Work Phone: [facility] 03-04-2019 influenza, high dose seasonal, preservative-free Sukh PATTERSON-Isabella Work Phone: [facility] 03-20-2018 influenza, injectabl e, quadrivalent, preservative free Sukh Brewer PA-C Work Phone: [facility] 11-27-2017 pneumococcal polysac charide vaccine, 23 valent Sukh Brewer PA-C Work Phone: [facility] 06-01-2016 pneumococcal conjuga te vaccine, 13 valent Sukh Brewer PA-C Work Phone: [facility] 03-01-2016 influenza, injectabl e, quadrivalent, contains preservative Sukh rBewer PA-C Work Phone: [facility] Payers Date Payer Category Payer Unknown [employer] MEDICARE SUPPLEMENT [id number] 2021-Present [address] [place] [address] Supplement [id number] 2021 Unknown [id number] 2017 Medicare MEDICARE MEDICAR E PART A AND B [id number] 2017-Present [address] [place] [address] Medicare [id number] 2017 Medicare [id number] Social History Date Type Detail Facility Start: 11-07-2022 Tobacco smoking status MIIS Ex-smoke r [facility] End: 12-02-1964 History of tobacco use Current smoker [facility] End: 12-02-1964 History of tobacco use Cigarette Smoker [facility] Start: 08-01-2022 End: 05-10-2023 Alcohol intake Current non-drinker of alcohol (finding) [facility] Start: 08-01-2022 End: 11-07-2022 Alcohol intake [facility] Start: 1940 Sex Assigned At Male [facility] Start: 11-07-2022 Tobacco use and exposure Smokeless t obacco non-user [facility] Start: 11-07-2022 Tobacco use panel [facility] Start: 07-25-2022 Gender identity Identifies as male gender (finding) [facility] Start: 03-10-2022 Sexual orientation Heterosexual (dwight valenzuela) [facility] Start: 10-28-2022 End: 11-07-2022 Exposure to SARS-CoV-2 (event) Not sure [facility] Clinical Notes 08-01-2022 to 05-10-2023 Assessment & [...] monitor closely monitor and encourage plenty fluids. [facility] 05-10-2023 Miscellaneous Notes Associate d Problem(s): Stage [...] currently. Most recent carotid Doppler performed at [place] were negative. Associated Problem(s): Essential hypertension - [...] for 3 months. documented in this encounter [facility] 05-10-2023 Evaluation + Plan note Associ ated Problem(s): Prostate cancer (HCC) - Chronic stable PSAs continue to be low continues to follow-up with urology no reported concerns. [facility] 05-10-2023 Evaluation + Plan note Associ ated Problem(s): PAF (paroxysmal atrial fibrillation) (HCC) - Chronic stable continues to follow-up with cardiology normal sinus rhythm today continues on Eliquis occasional reported nosebleeds nothing currently. Most recent carotid Doppler performed at [place] were negative. [facility] 05-10-2023 Evaluation + Plan note Associ ated Problem(s): Essential hypertension - Chronic stable we will continue on hydrochlorothiazide 12.5 mg daily. Also continue lisinopril 20 mg daily [facility] 05-10-2023 Evaluation + Plan note Associ ated Problem(s): Seizure (HCC) - New onset isolated tonic-clonic seizure with postictal period lasting about an hour. Seen by neurology CT head MRI brain EEG were all negative, no current antiepileptics prescribed, driving restrictions for 3 months. [facility] 05-10-2023 History of Presen t illness Narrative Images from the original note were not included. [facility] [address] [facility] [address] Dept: [phone] Dept Loc: [phone] Visit type: Established Patient Reason for Visit: Follow-up (Med check) Assessment and Plan 1. Seizure (HCC) Assessment & Plan: - New onset isolated tonic-clonic seizure with postictal period lasting about an hour. Seen by neurology CT head MRI brain EEG were all negative, no current antiepileptics prescribed, driving restrictions for 3 months. 2. Prostate cancer ([facility]) Assessment & Plan: - Chronic stable PSAs continue to be low continues to follow-up with urology no reported concerns. 3. Stage 3a chronic kidney disease ([facility]) Assessment & Plan: - Chronic stable most recent GFR was 59. Continue to monitor closely monitor and encourage plenty fluids. 4. Essential hypertension Assessment & Plan: - Chronic stable we will continue on hydrochlorothiazide 12.5 mg daily. Also continue lisinopril 20 mg daily 5. PAF (paroxysmal atrial fibrillation) ([facility]) Assessment & Plan: - Chronic stable continues to follow-up with cardiology normal sinus rhythm today continues on Eliquis occasional reported nosebleeds nothing currently. Most recent carotid Doppler performed at [place] were negative. 6. Epistaxis Comments: Not current, [...] then post ictal period, was taken to [facility], amnestic to the event. Had a virtual appointment with neurology in [place]. Started on Keppra bid, but then not continued, CT head was negative, MRI was done and EEG were done and were negative. So driving restrictions for 3 months. Last time numbness and pain in left shoulder/neck was told had pinched nerve, and has gone away, saw cardiology and ordered carotid doppler was done at [place] and was negative. Prostate issues,has follow up [...] Hypothyroidism 2003 PAF (paroxysmal atrial fibrillation) ([facility]) 02/2019 nml ECHO 08/07 Prostate cancer ([facility]) 03/2020 Social History Tobacco Use Smoking status: [...] 38.00 Supraventricular tachycardia that required ablation Other (75745) Brother tractor accident age 55 No Known Problems Paternal Grandmother Heart disease Father age 98 No Known Problems Maternal Grandmother No Known Problems Brother Heart attack Father 90.00 stents No Known Problems Paternal Grandfather No Known Problems Sister Heart disease Sister Supraventricular tachycardia that required ablation No Known Problems Sister No Known Problems Son No Known Problems Brother Hypertension Mother age 92-CVA Other (52652) Sister hole in esophagus Heart disease Maternal [...] prior to signing but minor errors in brake assembler may have occurred. documented in this encounter [facility] 02-20-2023 Telephone encount er Note Rx loaded [facility] 02-20-2023 Miscellaneous Notes Formattin g of this note might be different from the original. Rx loaded documented in this encounter [facility] 11-07-2022 Evaluation + Plan note Associ ated Problem(s): Anemia - Chronic and stable last hemoglobin was 12.3 iron studies normal suspect anemia of chronic disease versus renal insufficiency - History of on Eliquis with history of paroxysmal A-fib saw GI 2021 and had a scope done shows no signs of bleeding. [facility] 11-07-2022 Miscellaneous Notes Associate d Problem(s): Anemia [...] 20 mg daily documented in this encounter [facility] 11-07-2022 Evaluation + Plan note Associ ated Problem(s): Essential hypertension - chronic and stable continue on current medication hydrochlorothiazide 25 mg daily, lisinopril 20 mg daily [facility] 11-07-2022 History of Presen t illness Narrative Images from the original note were not included. [facility] [address] [facility] [address] Dept: [phone] Dept Loc: [phone] Visit type: Established Patient Reason for Visit: [...] ultrasound was ordered however was obtained at [place] and showed mild stenosis of both carotid [...] 38.00 Supraventricular tachycardia that required ablation Other ([id number]) Brother tractor accident age 55 No Known Problems Paternal Grandmother Heart disease Father age 98 No Known Problems Maternal Grandmother No Known Problems Brother Heart attack Father 90.00 stents No Known Problems Paternal Grandfather No Known Problems Sister Heart disease Sister Supraventricular tachycardia that required ablation No Known Problems Sister No Known Problems Son No Known Problems Brother Hypertension Mother age 92-CVA Other ([id number]) Sister hole in esophagus Heart disease Maternal [...] prior to signing but minor errors in brake assembler may have occurred. documented in this encounter [facility] 08-01-2022 History of Presen t illness Narrative Images from the original note were not included. [facility] [address] [place] [address] Dept: [phone] Dept Loc: [phone] Visit type: Established Patient Reason for Visit: [...] 2003 PAF (paroxysmal atrial fibrillation) (CMS/HCC) ([facility]) 02/2019 nml ECHO 08/07 Prostate cancer (CMS/HCC) ([facility]) 03/2020 Social History Tobacco Use Smoking status: [...] 38.00 Supraventricular tachycardia that required ablation Other ([id number]) Brother tractor accident age 55 No Known Problems Paternal Grandmother Heart disease Father age 98 No Known Problems Maternal Grandmother No Known Problems Brother Heart attack Father 90.00 stents No Known Problems Paternal Grandfather No Known Problems Sister Heart disease Sister Supraventricular tachycardia that required ablation No Known Problems Sister No Known Problems Son No Known Problems Brother Hypertension Mother age 92-CVA Other ([id number]) Sister hole in esophagus Heart disease Maternal [...] prior to signing but minor errors in brake assembler may have occurred. documented in this encounter [facility] Essential hypertension- Primary Unspecified essential hypertension Anemia, unspecified type Cervical radiculopathy Brachial neuritis or radiculitis nos [facility] Diagnosis Cervical radiculopathy Brachial neuritis or radiculitis nos [facility]* Diagnosis Essential (primary) hypertension- Primary Unspecified essential hypertension Anemia, unspecified [facility]* Diagnosis Chronic anticoagulation Encounter for long-term (current) use of anticoagulants Essential hypertension Unspecified essential hypertension Hypothyroidism, unspecified type Hypercholesterolemia Pure hypercholesterolemia [facility] Diagnosis Seizure (HCC)- Primary Other convulsions Prostate cancer (HCC) Malignant neoplasm of prostate Stage 3a chronic kidney disease (HCC) Essential hypertension Unspecified essential hypertension PAF (paroxysmal atrial fibrillation) (HCC) Atrial fibrillation Epistaxis documented in this encounter [facility] Reason for Referral Specialty Diagnoses / Procedures Referred By Virginia argueta Referred To Contact Cardiology Diagnoses Dizziness Procedures Vascular US carotid artery duplex bilateral Sukh Brewer PA-C [address] [place] [address] [address] Referral ID Status Reason Start Date Expiration Date Visits Requested Visits Authorized [id number] Authorized Perform Procedure 08/01/2022 01/28/2023 1 1 Summary Purpose Family History No Family History Records Found Advance Directives No Advanced Directives Records Found Additional Source Comments Reason for Visit (unrecogniz ed section and content) Reason Comments Follow-up 3 month Dizziness Reason Onset Date Comments Med Refill 02/20/2023 Reason Comments Follow-up Med check Care Teams (unrecognized sec tion and content) Public Affairs Officer Relationship Specialty Start Date End Date Stoney Erazo DO [address] [place] [address] PCP - General Family Medicine 08/01/22 Public Affairs Officer Relationship Specialty Start Date End Date Stoney Erazo DO [address] [place] [address] PCP - General Family Medicine 08/01/22 Public Affairs Officer Relationship Specialty Start Date End Date Stoney Erazo, [address] [place] [address] PCP - General [facility] 08/01/22 Public Affairs Officer Relationship Specialty Start Date End Date Stoney Erazo DO [address] [place] [address] PCP - [facility] 08/01/22 Public Affairs Officer Relationship Specialty Start Date End Date Stoney Erazo, DO [address] [facility] [place] [id number] PCP - [facility] 08/01/22 Public Affairs Officer Relationship Specialty Start Date End Date Stoney Erazo DO [address] [place] [address] [address] [place] [address] PCP - [facility] 08/01/22 (unrecognized sect ion and content) No [...] BE BASED ON THE PRIMARY CLINICAL RECORDS. [facility] [employer] [facility] provides no warranty or guarantee of the accuracy or completeness of information in this document.
[2023-06-08 02:47] LABS: Cholesterol 139 mg/dL (200); High Density Lipoprotein 41 mg/dL; Prolactin 11.3 ng/mL; Triglycerides 58 mg/dL; Very Low Density Lipoprotein 12 mg/dL (5-40)
[2023-06-08] MEDS: 0.9% Normal Saline (1000mL) 1,000 ML 150 ML IV ×3 (04:22→19:16)
[2023-06-08] MEDS: 0.9% Saline Lock 10 ML Syringe IV ×2 (04:23→19:16)
[2023-06-08] MEDS: Levothyroxine 125 MCG Tablet PO (06:04)
[2023-06-08 07:47] LABS: Absolute Lymphocyte Count 1.45 X10^3/uL (0.83-4.51); Absolute Neutrophil Count 4.9 X10^3/uL (2.0-7.7); Basophil# 0.03 X10^3/uL; Basophil% 0.4 % (0-1); Eosinophil# 0.02 X10^3/uL; Eosinophils% 0.3 % (0-5); Hematocrit 36.7 % (40-54); Hemoglobin 12.1 g/dL (13.0-16.5); Lymphocyte # 1.45 X10^3/ul (0.83-4.51); Lymphocyte % 19.8 % (19-41); Mean Corpuscular Volume 90.8 fL (80-94); Mean Platelet Vol. 10.2 fl (6.2-12.0); Monocyte# 0.89 X10^3/uL; Monocyte% 12.2 % (0-10); NRBC Flagged by Analyzer 0 % (0-5); Neutrophil # 4.89 X10^3/uL (2.7-7.7); Neutrophil % 66.9 % (47-70); Platelet Count 186 K/mm3 (150-450); RBC Distribution Width CV 14.1 % (11.6-14.6); RBC Distribution Width SD 47.2 fl (35.1-43.9); Red Blood Count 4.04 M/mm3 (4.6-6.2); White Blood Count 7.3 K/mm3 (4.4-11.0)
[2023-06-08 08:35] LABS: ALB/GLOB Ratio 1.2 RATIO (0.9-2.4); AST(SGOT) 44 U/L (15-37); Alanine Aminotransfer ALT/SGPT 31 U/L (16-61); Alkaline Phosphatase 74 U/L (45-117); Anion Gap 4 (5-15); BUN 18 mg/dL (7-18); BUN/Creat Ratio 11.9 RATIO (10-20); Calcium,Total 8.2 mg/dL (8.5-10.1); Chloride 111 mmol/L (98-107); Creatinine, Serum 1.51 mg/dL (0.70-1.30); EST Glomerular Filtration Rate 47 mL/min (>60); Est Glom Filt Rate - Afr Amer 57 mL/min (>60); Globulin 2.6 g/dL (2.2-4.2); Glucose 98 mg/dL (74-106); Magnesium 2.5 mg/dL (1.6-2.6); Phosphorus 3.2 mg/dL (2.5-4.9); Potassium 3.5 mmol/L (3.5-5.1); Protein, Total 5.6 g/dL (6.4-8.2); Sodium Level 140 mmol/L (136-145); Thyroid Stim Hormone (TSH) 0.66 uIU/mL (0.358-3.74)
[2023-06-08] MEDS: APIXABAN 5 MG TABLET PO ×2 (09:39→19:50)
[2023-06-08] MEDS: levETIRAcetam 1,000 MG Tablet 1000 MG PO (09:40)
[2023-06-08] MEDS: hydroCHLOROthiazide 12.5mg 12.5 MG PO (09:40)
[2023-06-08] MEDS: Cholecalciferol (VIT D3) 25 MCG TABLET (1,000 UNITS) 50 MCG PO (09:40)
[2023-06-08] MEDS: Pantoprazole Sodium 20 MG Tablet PO ×2 (09:40→19:50)
[2023-06-08] MEDS: Multivitamins,Therapeutic Tablet 1 TABLET PO (09:40)
--- NOTE | 2023-06-08 13:03 | NEURO.CONS ---
Assessment and Plan: Neuro Assessment/Plan NICOLLE CONWAY is a 82 M with a past medical history of fib, syncope 2/2 arrythmia, HTN, being evaluated by Teleneurology for seizure. Pt had witnessed seizure event and another unwitnessed event at home. The event in Nov was concerning for seizure but AED was deferred given the lack of concerning high risk findings on MRI and EEG and on his own history. At this time, however, with two seizure events the likelihood of another event and epilepsy is high and patient does deserve to be on an AED. At this time, exam with L sided weakness specifically in the arm - could be a rivera's paralysis but will eval with MRI given his afib history. No additional workup is necessary currently. Plan: - continue Keppra 750mg BID - MRI Brain without contrast given the persistent L sided weakness. If this is normal, likely Rivera's paralysis - higher level of care not necessary currently. I personally attended this patient and spent a total time of 45 minutes evaluating this patient including clinical assessment, review of chart, medical history imaging, and determining appropriate treatment and workup. HPI Consult Data Date of Consult: 06/08/23 HPI Narrative HPI Narrative: NICOLLE CONWAY, is a 82 M with a past medical history of essential hypertension, hyperlipidemia, hypothyroidism, overweight; with BMI of 29.2 this admission, chronic atrial fibrillation; on apixaban, history of NSVT, history of idiopathic pancreatitis, history of basal cell carcinoma, history of Dupuytren's contracture, BPH; with history of prostate cancer, GERD, osteoarthritis, history of syncope (03/2019) and history of suspected seizure activity with extensive workup undertaken in March 2023; with patient noted to have brief shaking periods followed by unresponsiveness with an unremarkable MRI and EEG at that time resulting in him not being started on AED who presents to [facility] ER complaining of a similar episode with amnesia, urinary incontinence and suspected seizure activity. Mr. Conway reports that he does not remember getting up this morning and going out to the garage for a few hours where he went to work on an engine which is typical for him. He further states the last thing he can recall is coming into the house around 1 PM and taking a nap in his chair. The patient's then stated that he got up and went back out to the garage for a few hours and then came back and lay down in his chair between 4 PM and 5 PM because she was doing laundry. She states she then tried to arouse him and though he will wake up he was not able to fully awaken or talk and he was noted to be incontinent of urine. She did not witness any seizure activity nor does the patient remember any of the events described above. He denies any recent head injury and he states his garage is well ventilated with little concern for carbon monoxide poisoning. He states he has been otherwise healthy prior to this event and he denies recent medication changes. He also denies associated headache, tongue laceration, fever, chills, nausea, vomiting, blurred vision, slurred speech or difficulty moving extremities. Prior event per Neurology note: Remembers being with his chair and then does not remember anything until he got to the hospital. Pt's heard a grunt and then noted that pt jerked to the R side, eyes were closed and head centered. Pt had shaking of the arms and legs. Pt was rigid during this. No foaming at the mouth. No loss of control of bowel or bladder. Bit his tongue. By the time he was at hospital, he was acting back to normal. Had 2 fainting spells about 3 yrs ago, may be related to the afib. Did not look like this event, was sitting in his chair again and pt had eyes open and stared for 10-15 sec. Pt was not rigid. No medication changes in the last month (started, stopped, or dosage changes). Pt has no family history of seizure, no history of seizures as a kid, no prior history of TBI, meningitis, stroke etc. Neurologic History This time did not witness the event did not witness the event at home but found him poorly responsive in the chair. Bit his tongue and lip even prior to coming to the ED though but was waking up after EMS arrived and was more normal prior to coming to the ED. The pt had a seizure in the ED. That event per was more dramatic than the event last hospital stay that she did witnessed with more shaking. Pt denies any prodromal symptoms and states she did not notice anything out of the ordinary. Still really sleepy and groggy. No trauma in the intervening month, no new or stopped medications in the last 2 months. He had not had any additional syncopal or alteration of metal status events between Nov and May. Has not been driving either. Has an appointment with Dr. Duenas in August. [facility] Medical History Anemia Basal cell carcinoma BPH (benign prostatic hyperplasia) Chronic a-fib Chronic anticoagulation Chronic kidney disease Dupuytren contracture Epistaxis Essential (primary) hypertension GERD (gastroesophageal reflux disease) History of pancreatitis Hyperlipidemia Hypothyroidism Idiopathic acute pancreatitis Non-sustained ventricular tachycardia Paroxysmal atrial fibrillation Prostate cancer Seizure Sinus pause Syncope (03/2019) Home Medications simvastatin 20 mg tablet 20 mg PO QHS cholesterol 04/24/19 [History Last Taken 09/06/20] apixaban 5 mg tablet 5 mg PO BID blood thinner 04/02/20 [History Last Taken 09/07/20] lisinopril 20 mg tablet 20 mg PO QHS bp 04/02/20 [History Last Taken 09/06/20] levothyroxine 125 mcg tablet 125 mcg PO DAILY 10/01/20 [History Last Taken Unknown] cholecalciferol (vitamin D3) 25 mcg (1,000 unit) capsule 50 mcg PO DAILY 10/05/21 [History Last Taken Unknown] multivitamin 1 tab PO DAILY 10/05/21 [History Last Taken Unknown] omeprazole 20 mg capsule,delayed release 20 mg PO BID reflux 08/02/22 [History Last Taken Unknown] hydrochlorothiazide 25 mg tablet 12.5 mg PO DAILY bp 04/17/23 [History Last Taken Unknown] Allergy/AdvReac Type Severity Reaction Status Date / Time cephalexin AdvReac diarrhea Verified 04/18/23 00:42 niacin AdvReac PT UNSURE Verified 04/18/23 00:42 OF REACTION Family History Father Heart disease CAD (coronary artery disease) Sister Heart disease SVT Mother CVA (cerebral vascular accident) Daughter Heart disease SVT Surgical History H/O blepharoplasty H/O hemorrhoidectomy H/O knee surgery H/O umbilical hernia repair History of cataract surgery History of cholecystectomy History of ventral hernia repair Hx of appendectomy S/P cystourethroscopy with dilation of urethral stricture Social History household members: spouse Smoking Status: Former smoker quit date: 12/02/1964 alcohol intake: never substance use type: does not use caffeine: Yes Type: coffee Number of servings: 3 Vital Signs Vital Signs Vital Signs: 06/07/23 18:26 06/07/23 18:37 06/07/23 19:48 Temperature 98.0 F Temperature Source Temporal Pulse Rate 99 Respiratory Rate 14 Respiratory Effort Respiratory Depth Respiratory Pattern Blood Pressure 118/67 138/74 H Blood Pressure Mean 84 95 Blood Pressure Source Blood Pressure Position Blood Pressure Location Pulse Ox 92 Oxygen Delivery Method Room Air Oxygen Flow Rate (L/min) 06/07/23 21:37 06/07/23 21:45 06/07/23 23:00 Temperature Temperature Source Pulse Rate 104 H 90 Respiratory Rate 20 H 18 Respiratory Effort Respiratory Depth Respiratory Pattern Blood Pressure 184/79 H 127/74 H 93/66 Blood Pressure Mean 114 91 75 Blood Pressure Source Blood Pressure Position Blood Pressure Location Pulse Ox 98 93 Oxygen Delivery Method Non-Rebreather Room Air Oxygen Flow Rate (L/min) 15 06/07/23 23:55 06/08/23 00:30 06/08/23 01:00 Temperature Temperature Source Pulse Rate 82 75 Respiratory Rate 19 H 17 Respiratory Effort Respiratory Depth Respiratory Pattern Blood Pressure 99/68 91/66 Blood Pressure Mean 78 74 Blood Pressure Source Blood Pressure Position Blood Pressure Location Pulse Ox 92 92 87 Oxygen Delivery Method Room Air Room Air Room Air Oxygen Flow Rate (L/min) 06/08/23 02:00 06/08/23 02:11 06/08/23 03:34 Temperature 97.9 F 97.9 F Temperature Source Temporal Pulse Rate 75 75 83 Respiratory Rate 16 16 18 Respiratory Effort Respiratory Depth Respiratory Pattern Blood Pressure 102/65 102/65 101/69 Blood Pressure Mean 77 77 79 Blood Pressure Source Monitor Blood Pressure Position Supine Blood Pressure Location Right Arm Pulse Ox 96 95 96 Oxygen Delivery Method Nasal Cannula Nasal Cannula Oxygen Flow Rate (L/min) 2 2 06/08/23 03:50 06/08/23 09:34 06/08/23 09:35 Temperature 97.8 F Temperature Source Temporal Pulse Rate 88 86 Respiratory Rate 17 Respiratory Effort Normal Non-Labored Respiratory Depth Normal Respiratory Pattern Normal Blood Pressure 99/72 Blood Pressure Mean 81 Blood Pressure Source Monitor Blood Pressure Position Semi-Fowlers Blood Pressure Location Right Arm Pulse Ox 99 Oxygen Delivery Method Nasal Cannula Nasal Cannula Nasal Cannula Oxygen Flow Rate (L/min) 2 2 2 Weight Weight: 92 kg Body Mass Index (BMI) 29.0 Physical Exam Narrative -? General: Laying comfortably in bed; in no acute distress. -? HENT: Normal oropharynx and mucosa. Normal external appearance of ears and nose. Exophthalmos. -? Neck: Supple, no pain or tenderness -? CV:? No peripheral edema. -? Pulmonary:? Normal respiratory effort. -? Ext: No cyanosis, edema, or deformity -? Skin: No rash. Normal palpation of skin.? -? Musculoskeletal: full range of motion; no joint tenderness. Normal digits and nails by inspection. No clubbing. -? NEURO: -? Mental Status: The patient was alert and oriented to time, place, and person. Normal recent/remote memory, concentration, and general fund of knowledge. -? Language: speech is clear.? Naming, repetition, fluency, and comprehension intact. -? Cranial Nerves: PERRL 3 mm/brisk. EOMI, visual monge full, no facial asymmetry, facial sensation intact, hearing intact, tongue midline, no evidence of atrophy or fibrillations. Bit both sides of tongue but the R worse than the L -? Motor: pronation on the LUE. slight drift LUE -?Detailed strength exam as performed by the nurse/SERENE and witnessed by the physician: R L SA EE 5 5 EF 5 5 WE WF Associate Professor Of Art History 5 5 HF 5 5- KE 5 5 KF 5 5 DF 5 5 PF 5 5 -? Tone: is normal and bulk is normal -? Sensation- Intact to light touch bilaterally -? Coordination: No dysmetria on [id number], finger follow finger or [id number]. -? Gait-deferred Lab / Micro Data 06/08/23 07:35 06/08/23 07:35 Labs: Laboratory Results - last 24 hr 06/07/23 18:49: WBC 9.8, RBC 4.70, Hgb 13.9, Hct 42.9, MCV 91.3, MCH 29.6, MCHC 32.4, RDW Std Deviation 46.8 H, RDW Coeff of Ksenia 13.8, Plt Count 220, MPV 11.0, Immature Gran % (Auto) 0.500, Neut % (Auto) 83.8 H, Lymph % (Auto) 8.8 L, [place] % (Auto) 6.6, Eos % (Auto) 0.0, Baso % (Auto) 0.3, Absolute Neuts (auto) 8.2 H, Absolute Lymphs (auto) 0.87, Nucleated RBC % 0, Sodium 140, Potassium 3.5, Chloride 105, Carbon Dioxide 30.0, Anion Gap 5, BUN 19 H, Creatinine 1.63 H, Estim Creat Clear Calc 39.87, Est GFR (MDRD) Af Amer 52 L, Est GFR (MDRD) Non-Af 43 L, BUN/Creatinine Ratio 11.7, Glucose 108 H, Lactic Acid 1.2, Calcium 9.2, Total Bilirubin 1.10 H, AST 26, ALT 28, Alkaline Phosphatase 88, Troponin I High Sens 10, Total Protein 7.0, Albumin 3.8, Globulin 3.2, Albumin/Globulin Ratio 1.2, Ethyl Alcohol < 3.0 06/07/23 20:40: Urine Color Yellow, Urine Clarity Clear, Urine pH 7.0, Ur Specific [place] 1.010, Urine Protein 15 H, Urine Glucose (UA) Normal, Urine Ketones 15 H, Urine Occult Blood Negative, Urine Nitrite Negative, Urine Bilirubin Negative, Urine Urobilinogen Normal, Ur Leukocyte Esterase Negative, Urine RBC 0 SEEN, Urine WBC 0 SEEN, Ur Squamous Epith Cells 0 SEEN, Urine Bacteria 0 SEEN, Urine Mucus 0 SEEN, Urine Opiates Screen NEGATIVE, Urine Methadone Screen NEGATIVE, Ur Barbiturates Screen NEGATIVE, Ur Phencyclidine Scrn NEGATIVE, Ur Amphetamines Screen NEGATIVE, MDMA (Ecstasy) Screen NEGATIVE, U Benzodiazepines Scrn NEGATIVE, Urine Cocaine Screen NEGATIVE, U Cannabinoids Screen NEGATIVE, Ur Drug Screen Comment 06/08/23 02:24: Triglycerides 58, Cholesterol 139, LDL Cholesterol 86, VLDL Cholesterol 12, HDL Cholesterol 41, Prolactin 11.3 06/08/23 07:35: WBC 7.3, RBC 4.04 L, Hgb 12.1 L, Hct 36.7 L, MCV 90.8, MCH 30.0, MCHC 33.0, RDW Std Deviation 47.2 H, RDW Coeff of Ksenia 14.1, Plt Count 186, MPV 10.2, Immature Gran % (Auto) 0.400, Neut % (Auto) 66.9, Lymph % (Auto) 19.8, [place] % (Auto) 12.2 H, Eos % (Auto) 0.3, Baso % (Auto) 0.4, Absolute Neuts (auto) 4.9, Absolute Lymphs (auto) 1.45, Nucleated RBC % 0, Sodium 140, Potassium 3.5, Chloride 111 H, Carbon Dioxide 25.0, Anion Gap 4 L, BUN 18, Creatinine 1.51 H, Estim Creat Clear Calc 43.00, Est GFR (MDRD) Af Amer 57 L, Est GFR (MDRD) Non-Af 47 L, BUN/Creatinine Ratio 11.9, Glucose 98, Calcium 8.2 L, Phosphorus 3.2, Magnesium 2.5, Total Bilirubin 1.30 H, AST 44 H, ALT 31, Alkaline Phosphatase 74, Total Protein 5.6 L, Albumin 3.0 L, Globulin 2.6, Albumin/Globulin Ratio 1.2, TSH 0.66 Micro: Microbiology 06/07/23 18:49 Mucosa - Nose SARS-CoV-2, Influenza & RSV (PCR) - Final Imagaing Radiology Impression Brain CT 06/07/23 19:54 IMPRESSION: Normal unenhanced CT scan of the brain. Electronically Signed: Gerardo Fountain MD at 21:37 EST , Chest X-Ray 06/07/23 23:15 IMPRESSION: Poor inspiration with some bibasilar atelectasis. Cardiomegaly. Electronically Signed: Gerardo Fountain MD at 23:28 EST , Active Medications Active Medications Active Medications: Current Medications Generic Name Dose Route Start Last Admin Trade Name Freq PRN Reason Stop Dose Admin Acetaminophen 650 mg 06/08/23 04:11 Acetaminophen 325 Mg Tablet PO Q6H PRN PRN Pain 1-10 Or Fever>100.7 Apixaban 5 mg 06/08/23 10:00 06/08/23 09:39 Apixaban 5 Mg Tablet PO 5 mg BID RENZO Administration Atorvastatin Calcium 10 mg 06/08/23 22:00 Atorvastatin Calcium 10 Mg Tablet PO QHS RENZO Cholecalciferol 50 mcg 06/08/23 10:00 06/08/23 09:40 Cholecalciferol (Vit D3) 25 Mcg Tablet (1,000 Units) PO 50 mcg DAILY RENZO Administration Hydrochlorothiazide 12.5 mg 06/08/23 10:00 06/08/23 09:40 Hydrochlorothiazide 12.5mg PO 12.5 mg DAILY RENZO Administration Protocol Sodium Chloride 1,000 mls @ 150 mls/hr 06/07/23 23:30 06/08/23 11:06 IV 150 mls/hr .[id number] RENZO Administration Levetiracetam 1,000 mg 06/08/23 10:00 06/08/23 09:40 Levetiracetam 1,000 Mg Tablet PO 1,000 mg BID RENZO Administration Levothyroxine Sodium 125 mcg 06/08/23 06:00 06/08/23 06:04 Levothyroxine 125 Mcg Tablet PO 125 mcg 0600 RENZO Administration Lisinopril 20 mg 06/08/23 22:00 Lisinopril 20 Mg Tablet PO QHS RENZO Protocol Melatonin 3 mg 06/08/23 04:11 Melatonin 3 Mg Tablet PO QHS PRN PRN INSOMNIA Multivitamins 1 tablet 06/08/23 08:00 06/08/23 09:40 Multivitamins,Therapeutic Tablet PO 1 tablet DAILYCM RENZO Administration Ondansetron HCl 4 mg 06/08/23 04:11 Ondansetron 4 Mg/2 Ml Vial IV Q8H PRN PRN NAUSEA/VOMITING Pantoprazole Sodium 20 mg 06/08/23 10:00 06/08/23 09:40 Pantoprazole Sodium 20 Mg Tablet PO 20 mg BID RENZO Administration Sodium Chloride 10 - 40 ml 06/08/23 03:27 06/08/23 04:23 0.9% Saline Lock 10 Ml Syringe IV 10 ml UD PRN Administration SALINE FLUSH
--- NOTE | 2023-06-08 16:16 | NURSING ---
I spoke with Tasneem at [facility] transfer line to let her know we are cancelling the bed we needed for the pt per cloth wire weaver Jody
--- NOTE | 2023-06-08 16:26 | PN.HOSP_ITS ---
Reason for Visit Reason for Visit: Diagnoses Epilepsy, unspecified, not intractable, without status epilepticus (06/08/23) Unspecified urinary incontinence (06/08/23) Other amnesia (06/08/23) Subjective Subjective Patient feeling better today and improvement of mental status Objective Data Objective Data Vital Signs: Vital Signs Temp Pulse Resp BP Pulse Ox O2 Del Method O2 Flow Rate 97.6 F L 75 17 130/86 H 96 Room Air 2 06/08/23 16:03 06/08/23 16:03 06/08/23 16:03 06/08/23 16:03 06/08/23 16:03 06/08/23 16:04 06/08/23 09:35 Oxygen Flow Rate (L/min) 2 Oxygen Delivery Method Room Air Weight: 92 kg Body Mass Index (BMI) 29.0 Intake & Output: Intake and Output for Last 24 Hours 06/06/23 06/07/23 06/08/23 23:59 23:59 23:59 Intake Total 1115 / 1115 1547.5 / 1547.5 Output Total 300 / 300 Balance 1115 / 1115 1247.5 / 1247.5 Lab / Micro Data 06/08/23 07:35 06/08/23 07:35 Labs: Laboratory Results - last 24 hr 06/07/23 18:49: WBC 9.8, RBC 4.70, Hgb 13.9, Hct 42.9, MCV 91.3, MCH 29.6, MCHC 32.4, RDW Std Deviation 46.8 H, RDW Coeff of Ksenia 13.8, Plt Count 220, MPV 11.0, Immature Gran % (Auto) 0.500, Neut % (Auto) 83.8 H, Lymph % (Auto) 8.8 L, [place] % (Auto) 6.6, Eos % (Auto) 0.0, Baso % (Auto) 0.3, Absolute Neuts (auto) 8.2 H, Absolute Lymphs (auto) 0.87, Nucleated RBC % 0, Sodium 140, Potassium 3.5, Chloride 105, Carbon Dioxide 30.0, Anion Gap 5, BUN 19 H, Creatinine 1.63 H, Estim Creat Clear Calc 39.87, Est GFR (MDRD) Af Amer 52 L, Est GFR (MDRD) Non-Af 43 L, BUN/Creatinine Ratio 11.7, Glucose 108 H, Lactic Acid 1.2, Calcium 9.2, Total Bilirubin 1.10 H, AST 26, ALT 28, Alkaline Phosphatase 88, Troponin I High Sens 10, Total Protein 7.0, Albumin 3.8, Globulin 3.2, Albumin/Globulin Ratio 1.2, Ethyl Alcohol < 3.0 06/07/23 20:40: Urine Color Yellow, Urine Clarity Clear, Urine pH 7.0, Ur Specific [place] 1.010, Urine Protein 15 H, Urine Glucose (UA) Normal, Urine Ketones 15 H, Urine Occult Blood Negative, Urine Nitrite Negative, Urine Bilirubin Negative, Urine Urobilinogen Normal, Ur Leukocyte Esterase Negative, Urine RBC 0 SEEN, Urine WBC 0 SEEN, Ur Squamous Epith Cells 0 SEEN, Urine Bacteria 0 SEEN, Urine Mucus 0 SEEN, Urine Opiates Screen NEGATIVE, Urine Methadone Screen NEGATIVE, Ur Barbiturates Screen NEGATIVE, Ur Phencyclidine Scrn NEGATIVE, Ur Amphetamines Screen NEGATIVE, MDMA (Ecstasy) Screen NEGATIVE, U Benzodiazepines Scrn NEGATIVE, Urine Cocaine Screen NEGATIVE, U Cannabinoids Screen NEGATIVE, Ur Drug Screen Comment 06/08/23 02:24: Triglycerides 58, Cholesterol 139, LDL Cholesterol 86, VLDL Cholesterol 12, HDL Cholesterol 41, Prolactin 11.3 06/08/23 07:35: WBC 7.3, RBC 4.04 L, Hgb 12.1 L, Hct 36.7 L, MCV 90.8, MCH 30.0, MCHC 33.0, RDW Std Deviation 47.2 H, RDW Coeff of Ksenia 14.1, Plt Count 186, MPV 10.2, Immature Gran % (Auto) 0.400, Neut % (Auto) 66.9, Lymph % (Auto) 19.8, [place] % (Auto) 12.2 H, Eos % (Auto) 0.3, Baso % (Auto) 0.4, Absolute Neuts (auto) 4.9, Absolute Lymphs (auto) 1.45, Nucleated RBC % 0, Sodium 140, Potassium 3.5, Chloride 111 H, Carbon Dioxide 25.0, Anion Gap 4 L, BUN 18, Creatinine 1.51 H, Estim Creat Clear Calc 43.00, Est GFR (MDRD) Af Amer 57 L, Est GFR (MDRD) Non-Af 47 L, BUN/Creatinine Ratio 11.9, Glucose 98, Calcium 8.2 L, Phosphorus 3.2, Magnesium 2.5, Total Bilirubin 1.30 H, AST 44 H, ALT 31, Alkaline Phosphatase 74, Total Protein 5.6 L, Albumin 3.0 L, Globulin 2.6, Albumin/Globulin Ratio 1.2, TSH 0.66 Micro: Microbiology 06/07/23 18:49 Mucosa - Nose SARS-CoV-2, Influenza & RSV (PCR) - Final Radiography Diagnostic Testing: Radiology Impression Brain CT 06/07/23 19:54 IMPRESSION: Normal unenhanced CT scan of the brain. Electronically Signed: Gerardo Fountain MD at 21:37 EST , Chest X-Ray 06/07/23 23:15 IMPRESSION: Poor inspiration with some bibasilar atelectasis. Cardiomegaly. Electronically Signed: Gerardo Fountain MD at 23:28 EST , Brain MRI 06/08/23 02:17 IMPRESSION: Senescent changes with no evidence of acute intracranial bleed, mass or ischemia. Electronically Signed: Stoney Rouse DO at 15:49 EST , Physical Exam Narrative General: Alert, oriented, no apparent distress HEENT: Atraumatic, normocephalic Eyes: Anicteric, normal conjunctiva, extraocular movements grossly intact Neck: Supple Respiratory: Clear to auscultation bilaterally, normal respiratory effort Cardiovascular: Regular rate and rhythm GI: Soft, nontender, nondistended Extremities: No edema Musculoskeletal: Moving all extremities Neuro: No overt focal neurological deficits Skin: No rashes appreciated Psych: Cooperative Assessment & Plan Assessment/Plan (1) Amnesia: (2) Urinary incontinence: QUALIFIERS: Urinary Incontinence type: unspecified incontinence Qualified Code(s): R32 - Unspecified urinary incontinence (3) Seizure disorder: PLAN: Plan 1. Amnesia, urinary incontinence and suspected absence type seizure; recurrent with negative workup done here in late March 2023 including MRI brain and EEG - Admit to CDU under observation status until patient can be safely transferred to a tertiary care facility to undergo a thorough neurologic evaluation to the underlying etiology of his worsening symptoms can be ascertained. Check prolac tin level as this can be elevated in a postictal state. Give IV Ativan for obvious breakthrough tonic-clonic seizure activity and continue Keppra begun in the ER after he had a witnessed event while there. Finally, while we are awaiting transfer to tertiary care facility we will recheck EEG and MRI of the brain w/o contrast plus we will reconsult [facility] teleneurology to see this patient this admission and perhaps help to facilitate his transfer with help appreciated in advance. -06/08: Patient with no further seizure activity, evaluated by neurology who did not feel is necessary to transfer, recommended brain MRI without contrast Keppra 750 mg twice daily, this has been ordered 2. Essential hypertension - Continue home medications as previous. Give IV hydralazine as needed for systolic blood pressure greater than 160 mmHg. 3. Hyperlipidemia - Resume statin. 4. Hypothyroidism - Continue Synthroid as previous and check TSH. 5. Overweight; with BMI of 29.2 this admission - Weight loss will be recommended. 6. Chronic atrial fibrillation; on apixaban - Resume Apixaban as previous. 7. History of NSVT - Noted. 8. History of idiopathic pancreatitis - Noted no signs of recurrence at this time. 9. History of basal cell carcinoma - Noted. 10. History of Dupuytren's contracture - Noted. 11. BPH; with history of prostate cancer - Apparently stable. 12. GERD - Continue PPI. 13. Osteoarthritis - Give Tylenol as needed. 14. DVT prophylaxis - Patient is already on apixaban for #6 which will be continued. Time spent in the patient's overall evaluation,decision-making process, review of diagnostic data, adjustment of management, discussion with other providers, nursing nursing and ancillary staff involved in patient's care documentation, 35 minutes Capacity Legal Talent Acquisition Assistant Reflex Medical hold order details:: IF a medical hold is selected below, a suggested order for a MEDICAL HOLD will reflex upon signing the document. Next of kin: [place] law dictates a PRIORITY LIST for identifying legal decision-maker/legal next of kin in the following order (LNOK): 1st: The patient?s legal guardian, if any 2nd: The patient's spouse (if status is questionable, consult Risk Management) 3rd: The patient?s adult child(johan) (majority, if multiple children) 4th: The patient?s parents 5th: The patient?s adult siblings (majority, if multiple children siblings) Charges/Coding Visit Charges Inpatient E&M: 49742 Subs Hosp L2
[2023-06-08] MEDS: Atorvastatin Calcium 10 MG Tablet PO (19:50)
[2023-06-08] MEDS: levETIRAcetam 250 MG Tablet 750 MG PO (19:50)
[2023-06-08] MEDS: Lisinopril 20 MG Tablet PO (19:51)
[2023-06-09] MEDS: 0.9% Normal Saline (1000mL) 1,000 ML 150 ML IV ×2 (01:51→08:32)
[2023-06-09 04:00] VITALS: BP 134/81; PULSE 78; RESP 16; TEMP 36.2; O2SAT 95
[2023-06-09 04:07] VITALS: BMI 34.0
[2023-06-09] MEDS: Levothyroxine 125 MCG Tablet PO (05:18)
[2023-06-09 07:07] LABS: Absolute Lymphocyte Count 1.29 X10^3/uL (0.83-4.51); Basophil# 0.05 X10^3/uL; Eosinophil# 0.02 X10^3/uL; Eosinophils% 0.4 % (0-5); Hematocrit 34.2 % (40-54); Hemoglobin 11.2 g/dL (13.0-16.5); Lymphocyte # 1.29 X10^3/ul (0.83-4.51); Lymphocyte % 26.1 % (19-41); Mean Corp Hgb Conc 32.7 g/dL (32-36); Mean Corpuscular Hgb 30.1 pg (27.0-32.0); Mean Corpuscular Volume 91.9 fL (80-94); Mean Platelet Vol. 10.5 fl (6.2-12.0); Monocyte# 0.55 X10^3/uL; Monocyte% 11.1 % (0-10); NRBC Flagged by Analyzer 0 % (0-5); Neutrophil # 3.03 X10^3/uL (2.7-7.7); Neutrophil % 61.2 % (47-70); Platelet Count 148 K/mm3 (150-450); RBC Distribution Width CV 14.4 % (11.6-14.6); RBC Distribution Width SD 48.7 fl (35.1-43.9); Red Blood Count 3.72 M/mm3 (4.6-6.2)
[2023-06-09 07:33] LABS: Anion Gap 3 (5-15); BUN 18 mg/dL (7-18); BUN/Creat Ratio 11.9 RATIO (10-20); Calcium,Total 8.4 mg/dL (8.5-10.1); Chloride 114 mmol/L (98-107); Creatinine, Serum 1.51 mg/dL (0.70-1.30); EST Glomerular Filtration Rate 47 mL/min (>60); Est Glom Filt Rate - Afr Amer 57 mL/min (>60); Estimated Creatinine Clearance 46.31 ml/min; Glucose 98 mg/dL (74-106); Potassium 3.5 mmol/L (3.5-5.1); Sodium Level 144 mmol/L (136-145)
[2023-06-09] MEDS: Multivitamins,Therapeutic Tablet 1 TABLET PO (08:15)
[2023-06-09] MEDS: 0.9% Saline Lock 10 ML Syringe IV (09:37)
[2023-06-09] MEDS: Pantoprazole Sodium 20 MG Tablet PO (09:39)
[2023-06-09] MEDS: APIXABAN 5 MG TABLET PO (09:39)
[2023-06-09] MEDS: hydroCHLOROthiazide 12.5mg 12.5 MG PO (09:40)
[2023-06-09] MEDS: Cholecalciferol (VIT D3) 25 MCG TABLET (1,000 UNITS) 50 MCG PO (09:40)
[2023-06-09] MEDS: levETIRAcetam 250 MG Tablet 750 MG PO (09:41)
[2023-06-09 10:00] VITALS: BP 128/77; PULSE 79; RESP 16; TEMP 36.4; O2SAT 95
--- NOTE | 2023-06-09 12:20 | CASEMGMT ---
RN CM Face to Face with patient for initial transition planning/care coordination assessment. RN CM introduced self and role at [facility]. Patient sitting in chair, alert and oriented, at bedside. Patient willing to participate in assessment and is able to answer all questions appropriately. Care providers, pharmacy, and demographics verified. Patient wishes to discharge home, denies need for home health at this time. Patient states he has no further needs or concerns at this time. CM to follow for discharge planning needs that may arise. PCP: Castro Specialists: Mara, urologist; Iona, tag clerk [facility] Pres[facility] Benef[facility]: yes Living Will/HPOA: yes, Paradise Conway LNOK: , daughter Living Arrangements: Patient lives with in a single story home with 1 step to enter the home. Patient is independent at home. Transportation: self, DME/HHC: Patient has shower chair, raised toilet, cane, grab bars at home. No previous HHC or SNF. Disposition Plan: Patient to discharge home with family support and follow-up plans in place. Justine BEE, RN, CM
--- NOTE | 2023-06-09 14:59 | DCINST_ITS ---
Discharge Instructions Diet Discharge Diet: No restrictions Activity Discharge Activity: - (See attached instructions) Follow Up Care Test Results: Test results from this visit will be discussed in further detail at your follow- up appointment, if applicable. Discharge Plan Admission Admit Date/Time: 06/08/23 01:59 Primary Reason for Your Visit: Amnesia, concern for stroke Attending Provider: Caridad Cueto Primary Care Provider: Stoney Erazo Consulting Providers: Zabrina Damon; Stephany Eden; Evi Humphries; Mike Harris; Rahda Nash; NEVIN CAICEDO; Heaven Richter; Alcija Greene; Alfred Klein; Casie Davis; Taz Gavni; Isac Fregoso; Rahel Torres; Susan Robbins; Alejandro Pyle; Evelyn De; Naren Collazo; Jimi Rivera; Colten Finn; Cosmo Ryan; Yimi Matthew; Bill Don; Mark Rodriguez; Curt Burnham; Mabel Mcnamara; Malick March Instructions Patient Instructions: Diagnosing Epilepsy, Discharge Instructions for Epilepsy Additional Instructions / Restrictions: DISCHARGE INSTRUCTIONS PLEASE READ *Please take this with you to your next doctors appointment* -You will be discharged on Keppra 750 mg twice daily -Please keep your follow-up appointment with Dr. Duenas SEIZURE DISCHARGE INSTRUCTIONS: - Seizures are unpredictable. Do not do anything that might cause danger to you or other people if you have another seizure. Do not drive, ride a bike, climb ladders/heights, hold a baby or operate dangerous equipment etc. - Do not drive until you are cleared to do so by your doctor -Avoid unsupervised activities that may pose danger of sudden loss of consciousness including bathing, swimming alone, working at heights, and/or operating heavy machinery. - Do not take a bath alone. Take shower instead - Do not spend time alone until your healthcare provider says that you are no longer in danger of having another seizure - Tell your close friends and relatives about your seizure. Teach them what to do for you if it happens again - Take your medicine as prescribed, missing doses increases your risk of having repeat seizure -Follow regular sleep schedule such that you get at least 60 hours of restful sleep every night. This is especially important when you are sick or have a cold, flu, or another type of infection - Do not drink alcoholic beverages until your doctor says it is okay. Do not ever use recreational drugs -For future seizures if you are alone: If you feel a seizure coming on, lie down on a bed or the floor or with something soft under your head and lie on your left side, not in your back. Also make sure you are not near any objects that may injure you during seizure. Call 911 if you can. - For future seizures if someone is with you: Depression should help you get into a safe position and then they should call 911. They should not try to force anything into your mouth once the seizure begins. They should not put their fingers in your mouth. -After seizure you may be drowsy or confused. That person should stay with you until you are fully awake. That person should not offer you anything to eat or drink during that time. Call 911 or go to the emergency department. -Call your healthcare provider right away if you have any of these: Another seizure, a fever of 100.4 ?F or higher, abnormal irritability, drowsiness, or confusion, head or neck pain that gets worse -Please call your primary care provider's office upon discharge to schedule a hospital follow up within 1 week. -For any concerning signs or symptoms please call 911 or proceed to the nearest emergency department Discharge Orders/Prescriptions Prescriptions: New levetiracetam [Keppra] 750 mg tablet 750 mg PO BID 30 Days Qty: 60 1RF Continued omeprazole 20 mg capsule,delayed release(DR/EC) 20 mg PO BID simvastatin 20 mg tablet 20 mg PO QHS levothyroxine 125 mcg tablet 125 mcg PO DAILY cholecalciferol (vitamin D3) 25 mcg (1,000 unit) capsule 50 mcg PO DAILY multivitamin Tablet 1 tab PO DAILY lisinopril 20 MG tablet 20 mg PO QHS apixaban 5 MG tablet 5 mg PO BID Patient Comments: stop 3 days preop as directed hydrochlorothiazide 25 MG tablet 12.5 mg PO DAILY Referrals / Follow Up: Stoney Erazo DO [Primary Care Provider] - Within 1 Week Hector Duenas MD [Non-Staff -Ordering Privileges] - Disposition Disposition (needs filled in before D/C Order can be placed): Home, Self Care
--- NOTE | 2023-06-09 15:04 | DS.PCM_ITS ---
Providers Date of Admission: 06/08/23 Date of Discharge: 06/09/23 Primary Care Physician: Dr. Stoney Erazo, Consultations 06/08/23 02:12 Neurology [Consult: Tele-Neurology] Routine Consulting Provider: [facility] Reason for Consult: Amnesia, urinary incontinence and suspected seizure EMERGENT Consult: No MD Notified: Yes Date Notified: 06/08/23 Time Notified: 06:45 Method of Notification: Answering Service Nursing Unit Staff Notify [facility] of Tele-Neurology Consult: Yes Reason For Visit: AMNESIA, URINARY INCONTINENCE AND SUSPECTED Diagnosis Discharge Diagnosis (1) Amnesia: Status: Acute Code(s): R41.3 - Other amnesia (2) Urinary incontinence: Status: Acute Code(s): R32 - Unspecified urinary incontinence Qualifiers: Urinary Incontinence type: unspecified incontinence Qualified Code(s): R32 - Unspecified urinary incontinence (3) Seizure disorder: Status: Acute Code(s): G40.909 - Epilepsy, unspecified, not intractable, without status epilepticus Plan 1. Seizure disorder 2. Essential hypertension 3. Hyperlipidemia 4. Hypothyroidism 5. Overweight; with BMI of 29.2 this admission 6. Chronic atrial fibrillation; 7. History of NSVT 8. History of idiopathic pancreatitis 9. History of basal cell carcinoma 10. History of Dupuytren's contracture 11. BPH; with history of prostate cancer 12. GERD 13. Osteoarthritis Medications at Discharge Home Medications simvastatin 20 mg tablet 20 mg PO QHS cholesterol 04/24/19 apixaban 5 mg tablet 5 mg PO BID blood thinner 04/02/20 lisinopril 20 mg tablet 20 mg PO QHS bp 04/02/20 levothyroxine 125 mcg tablet 125 mcg PO DAILY thyroid 10/01/20 cholecalciferol (vitamin D3) 25 mcg (1,000 unit) capsule 50 mcg PO DAILY vitamin 10/05/21 multivitamin 1 tab PO DAILY vitamin 10/05/21 omeprazole 20 mg capsule,delayed release 20 mg PO BID reflux 08/02/22 hydrochlorothiazide 25 mg tablet 12.5 mg PO DAILY bp 04/17/23 levetiracetam 750 mg tablet (Keppra) 750 mg PO BID 30 days #60 tabs 06/09/23 Hospital Course Procedures - (EEG, MRI) Summary of Care Provided Minutes Spent on Discharge: 31 Hospital Course: Per HPI: NICOLLE CONWAY, is a 82 M with a past medical history of essential hypertension, hyperlipidemia, hypothyroidism, overweight; with BMI of 29.2 this admission, chronic atrial fibrillation; on apixaban, history of NSVT, history of idiopathic pancreatitis, history of basal cell carcinoma, history of Dupuytren's contracture, BPH; with history of prostate cancer, GERD, osteoarthritis, history of syncope (03/2019) and history of suspected seizure activity with extensive w orkup undertaken in March 2023; with patient noted to have brief shaking periods followed by unresponsiveness with an unremarkable MRI and EEG at that time resulting in him not being started on AED who presents to [facility] ER complaining of a similar episode with amnesia, urinary incontinence and suspected seizure activity. Mr. Conway reports that he does not remember getting up this morning and going out to the garage for a few hours where he went to work on an engine which is typical for him. He further states the last thing he can recall is coming into the house around 1 PM and taking a nap in his chair. The patient's then stated that he got up and went back out to the garage for a few hours and then came back and lay down in his chair between 4 PM and 5 PM because she was doing laundry. She states she then tried to arouse him and though he will wake up he was not able to fully awaken or talk and he was noted to be incontinent of urine. She did not witness any seizure activity nor does the patient remember any of the events described above. He denies any recent head injury and he states his garage is well ventilated with little concern for carbon monoxide poisoning. He states he has been otherwise healthy prior to this event and he denies recent medication changes. He also denies associated headache, tongue laceration, fever, chills, nausea, vomiting, blurred vision, slurred speech or difficulty moving extremities. In the ER the patient underwent a CT scan of the head that was negative for acute pathologic changes that would explain his symptomatology and his laboratory studies were similarly unremarkable in the setting of appar ently progressively worsening neurologic function with previous suspected seizure activity with postictal period now complicated by amnesia, urinary incontinence and what sounds like an absence type seizure disorder. After a long discussion with the ER attending it was mutually decided that this patient will be better served by transfer to a tertiary care facility where he can undergo a more thorough neurologic evaluation that can be done at this institution at this time given the fact that he underwent a complete workup here in late March that was unrevealing compounded by the fact that his condition seems to be deteriorating. The patient then had a witnessed suspected seizure in the ER and he was treated with IV Ativan and IV Keppra with patient now somnolent but arousable. Therefore, he should be transferred to a tertiary care facility as soon as a bed becomes available but until that time we will admit him here and consult [facility] to evaluate him along with repeat EEG and MRI. INTERVAL HISTORY: It was felt that this was indeed seizure activity and neurology recommended Keppra 750 twice daily and MRI, EEG did not show any epileptiform discharges and MRI within normal limits. Patient did well and was feeling much better, discussed with neurology and they recommended DC on Keppra and follow-up with neurology. Patient had no new complaints or further concerns on day of discharge. Discharged home in stable condition with . Discharge instructions as followed: -You will be discharged on Keppra 750 mg twice daily -Please keep your follow-up appointment with Dr. Duenas SEIZURE DISCHARGE INSTRUCTIONS: - Seizures are unpredictable. Do not do anything that might cause danger to you or other people if you have another seizure. Do not drive, ride a bike, climb ladders/heights, hold a baby or operate dangerous equipment etc. - Do not drive until you are cleared to do so by your doctor -Avoid unsupervised activities that may pose danger of sudden loss of consciousness including bathing, swimming alone, working at heights, and/or operating heavy machinery. - Do not take a bath alone. Take shower instead - Do not spend time alone until your healthcare provider says that you are no longer in danger of having another seizure - Tell your close friends and relatives about your seizure. Teach them what to do for you if it happens again - Take your medicine as prescribed, missing doses increases your risk of having repeat seizure -Follow regular sleep schedule such that you get at least 60 hours of restful sleep every night. This is especially important when you are sick or have a cold, flu, or another type of infection - Do not drink alcoholic beverages until your doctor says it is okay. Do not ever use recreational drugs -For future seizures if you are alone: If you feel a seizure coming on, lie down on a bed or the floor or with something soft under your head and lie on your left side, not in your back. Also make sure you are not near any objects that may injure you during seizure. Call 911 if you can. - For future seizures if someone is with you: Depression should help you get into a safe position and then they should call 911. They should not try to force anything into your mouth once the seizure begins. They should not put their fingers in your mouth. -After seizure you may be drowsy or confused. That person should stay with you until you are fully awake. That person should not offer you anything to eat or drink during that time. Call 911 or go to the emergency department. -Call your healthcare provider right away if you have any of these: Another seizure, a fever of 100.4 ?F or higher, abnormal irritability, drowsiness, or confusion, head or neck pain that gets worse -Please call your primary care provider's office upon discharge to schedule a hospital follow up within 1 week. -For any concerning signs or symptoms please call 911 or proceed to the nearest emergency department Physical Exam Narrative General: Alert, oriented, no apparent distress HEENT: Atraumatic, normocephalic Eyes: Anicteric, normal conjunctiva, extraocular movements grossly intact Neck: Supple Respiratory: Clear to auscultation bilaterally, normal respiratory effort Cardiovascular: Regular rate and rhythm GI: Soft, nontender, nondistended Extremities: No edema Musculoskeletal: Moving all extremities Neuro: No overt focal neurological deficits Skin: No rashes appreciated Psych: Cooperative Weight / BMI Weight Weight: 107.5 kg Body Mass Index (BMI) 34.0 ABG / Lab / Microbiology Data 06/09/23 06:35 06/09/23 06:35 Laboratory: Laboratory Results - last 24 hr 06/09/23 06:35: WBC 5.0, RBC 3.72 L, Hgb 11.2 L, Hct 34.2 L, MCV 91.9, MCH 30.1, MCHC 32.7, RDW Std Deviation 48.7 H, RDW Coeff of Ksenia 14.4, Plt Count 148 L, MPV 10.5, Immature Gran % (Auto) 0.200, Neut % (Auto) 61.2, Lymph % (Auto) 26.1, Becker % (Auto) 11.1 H, Eos % (Auto) 0.4, Baso % (Auto) 1.0, Absolute Neuts (auto) 3.0, Absolute Lymphs (auto) 1.29, Nucleated RBC % 0, Sodium 144, Potassium 3.5, Chloride 114 H, Carbon Dioxide 27.0, Anion Gap 3 L, BUN 18, Creatinine 1.51 H, Estim Creat Clear Calc 46.31, Est GFR (MDRD) Af Amer 57 L, Est GFR (MDRD) Non-Af 47 L, BUN/Creatinine Ratio 11.9, Glucose 98, Calcium 8.4 L Microbiology: Microbiology 06/07/23 18:49 Mucosa - Nose SARS-CoV-2, Influenza & RSV (PCR) - Final Radiography Diagnostic Testing: Radiology Impression Brain MRI 06/08/23 02:17 IMPRESSION: Senescent changes with no evidence of acute intracranial bleed, mass or ischemia. Electronically Signed: Stoney Rouse DO at 15:49 EST , D/C Instructions Discharge Diet: No restrictions Meaningful Use Info Meaningful Use Diagnoses (Choose all that apply): None applicable Discharge Plan Admission Admit Date/Time: 06/08/23 01:59 Primary Reason for Your Visit: Amnesia, concern for stroke Attending Provider: Caridad Cueto Primary Care Provider: Stoney Erazo Consulting Providers: Zabrina Damon; Stephany Eden; Evi Humphries; Mike Harris; Radha Nash; NEVIN CAICEDO; Heaven Richter; Alicja Greene; Alfred Klein; Casie Davis; Taz Gavin; Isac Fregoso; Rahel Torres; Susan Robbins; Alejandro Pyle; Evelyn De; Naren Collazo; Jimi Rivera; Colten Finn; Cosmo Ryan; Yimi Matthew; Bill Don; Mark Rodriguez; Curt Burnham; Mabel Mcnamara; Joaquim,Malick Instructions Patient Instructions: Diagnosing Epilepsy, Discharge Instructions for Epilepsy Additional Instructions / Restrictions: DISCHARGE INSTRUCTIONS PLEASE READ *Please take this with you to your next doctors appointment* -You will be discharged on Keppra 750 mg twice daily -Please keep your follow-up appointment with Dr. Duenas SEIZURE DISCHARGE INSTRUCTIONS: - Seizures are unpredictable. Do not do anything that might cause danger to you or other people if you have another seizure. Do not drive, ride a bike, climb ladders/heights, hold a baby or operate dangerous equipment etc. - Do not drive until you are cleared to do so by your doctor -Avoid unsupervised activities that may pose danger of sudden loss of consciousness including bathing, swimming alone, working at heights, and/or operating heavy machinery. - Do not take a bath alone. Take shower instead - Do not spend time alone until your healthcare provider says that you are no longer in danger of having another seizure - Tell your close friends and relatives about your seizure. Teach them what to do for you if it happens again - Take your medicine as prescribed, missing doses increases your risk of having repeat seizure -Follow regular sleep schedule such that you get at least 60 hours of restful sleep every night. This is especially important when you are sick or have a cold, flu, or another type of infection - Do not drink alcoholic beverages until your doctor says it is okay. Do not ever use recreational drugs -For future seizures if you are alone: If you feel a seizure coming on, lie down on a bed or the floor or with something soft under your head and lie on your left side, not in your back. Also make sure you are not near any objects that may injure you during seizure. Call 911 if you can. - For future seizures if someone is with you: Depression should help you get into a safe position and then they should call 911. They should not try to fo rce anything into your mouth once the seizure begins. They should not put their fingers in your mouth. -After seizure you may be drowsy or confused. That person should stay with you until you are fully awake. That person should not offer you anything to eat or drink during that time. Call 911 or go to the emergency department. -Call your healthcare provider right away if you have any of these: Another seizure, a fever of 100.4 ?F or higher, abnormal irritability, drowsiness, or confusion, head or neck pain that gets worse -Please call your primary care provider's office upon discharge to schedule a hospital follow up within 1 week. -For any concerning signs or symptoms please call 911 or proceed to the nearest emergency department Discharge Orders/Prescriptions Prescriptions: New levetiracetam [Keppra] 750 mg tablet 750 mg PO BID 30 Days Qty: 60 1RF Continued omeprazole 20 mg capsule,delayed release(DR/EC) 20 mg PO BID simvastatin 20 mg tablet 20 mg PO QHS levothyroxine 125 mcg tablet 125 mcg PO DAILY cholecalciferol (vitamin D3) 25 mcg (1,000 unit) capsule 50 mcg PO DAILY multivitamin Tablet 1 tab PO DAILY lisinopril 20 MG tablet 20 mg PO QHS apixaban 5 MG tablet 5 mg PO BID Patient Comments: stop 3 days preop as directed hydrochlorothiazide 25 MG tablet 12.5 mg PO DAILY Referrals / Follow Up: Stoney Erazo DO [Primary Care Provider] - Within 1 Week (Please call the office to schedule an appt. ) Hector Duenas MD [Non-Staff -Ordering Privileges] - (Please call the office to schedule an appt. ) Disposition Disposition (needs filled in before D/C Order can be placed): Home, Self Care Charges/Coding Visit Charges Inpatient E&M: 47534 Disch Hosp >30min
[2023-06-09 16:00] VITALS: BP 125/73; PULSE 73; RESP 18; TEMP 36.6; O2SAT 96
== END 2023-06-09 17:09 | disposition home or self-care (01) | DRG 101 ==
LOC: ED 19:58 → PCU 06-08 02:41
PROVIDERS: Admitting Provider Internal Medicine; Emergency Provider Student in an Organized Health Care Education/Training Program; PCP Family Medicine; Visit Provider Internal Medicine
DX: G40.909 Epilepsy, unspecified, not intractable, without status epilepticus (principal); I48.20 Chronic atrial fibrillation, unspecified; E03.9 Hypothyroidism, unspecified; I12.9 Hypertensive chronic kidney disease with stage 1 through stage 4 chronic kidney disease, or unspecified chronic kidney disease; N18.9 Chronic kidney disease, unspecified; M19.90 Unspecified osteoarthritis, unspecified site; E78.5 Hyperlipidemia, unspecified; K21.9 Gastro-esophageal reflux disease without esophagitis; E66.3 Overweight; R32 Unspecified urinary incontinence; Z87.891 Personal history of nicotine dependence; Z79.01 Long term (current) use of anticoagulants; Z82.3 Family history of stroke; N40.0 Benign prostatic hyperplasia without lower urinary tract symptoms; R41.3 Other amnesia; Z68.29 Body mass index [BMI] 29.0-29.9, adult
CPT/HCPCS: 36415; 70450; 70551; 71045; 80048; 80053; 80061; 80307; 80320; 81001; 83605; 83735; 84100; 84146; 84443; 84484; 85025; 87631; 93005; 95819; 97162; 99284; J7030; J7050; A4216; G0480

== ENCOUNTER → 2023-08-01 | Outpatient (CLI) | payer MEDICARE, OTHER, SELFPAY ==
[2023-08-01 09:41] LABS: PSA,Total- Diagnostic 0.11 ng/mL (0.0-4.0)
== END | disposition home or self-care (01) ==
LOC: LAB 08:57
PROVIDERS: PCP Family Medicine; Referring Provider Nurse Practitioner; Visit Provider Nurse Practitioner
DX: C61 Malignant neoplasm of prostate (principal)
CPT/HCPCS: 36415; 84153

== ENCOUNTER → 2023-09-08 | Outpatient (CLI) | payer MEDICARE, OTHER, SELFPAY ==
[2023-09-08 10:03] LABS: PSA,Total- Diagnostic 0.18 ng/mL (0.0-4.0)
== END | disposition home or self-care (01) ==
LOC: LAB 08:36
PROVIDERS: PCP Family Medicine; Referring Provider Urology; Visit Provider Urology
DX: C61 Malignant neoplasm of prostate (principal)
CPT/HCPCS: 36415; 84153

== ENCOUNTER → 2023-09-13 | Outpatient (CLI) | payer MEDICARE, OTHER, SELFPAY ==
[2023-09-13 10:31] LABS: Thyroid Stim Hormone (TSH) 2.17 uIU/mL (0.358-3.74)
== END | disposition home or self-care (01) ==
LOC: LAB 08:50
PROVIDERS: PCP Family Medicine; Visit Provider Family Medicine
DX: E03.9 Hypothyroidism, unspecified (principal)
CPT/HCPCS: 36415; 84443

== ENCOUNTER → 2023-09-18 | Outpatient (CLI) | payer MEDICARE, OTHER, SELFPAY | END | disposition home or self-care (01) | LOC: LABSPEC 16:01 | PROVIDERS: PCP Family Medicine; Referring Provider Urology; Visit Provider Urology | DX: R30.0 Dysuria (principal) | CPT/HCPCS: 87077; 87086; 87088; 87186 ==

== ENCOUNTER → 2023-09-23 | Outpatient (CLI) | payer MEDICARE, OTHER, SELFPAY ==
--- NOTE | 2023-09-23 09:00 | US_ITS ---
EXAM: US RETROPERITONEAL LIMITED, RENAL CLINICAL INDICATION: ACUTE CYSTITIS WITHOUT HEMATURIA TECHNIQUE: Limited grayscale and color Doppler sonographic evaluation of the retroperitoneum was performed. COMPARISON: No relevant prior studies available. FINDINGS: RIGHT KIDNEY: Kidneys are normal. Right kidney measures 9.7 cm in length and the left kidney measures 10.2 cm in length. No hydronephrosis. No shadowing calculus. No perinephric collection is demonstrated. LEFT KIDNEY: See above. BLADDER: Bladder is not well distended although there are no gross bladder abnormalities. OTHER FINDINGS: Prostate is enlarged with a volume of 32 mL. US/Kidney and Bladder IMPRESSION: 1. Normal kidneys. 2. Prostatomegaly is nonspecific. Correlate with PSA levels. Electronically Signed: Juanjose Garcia MD at 4:52 EDT ,
== END | disposition home or self-care (01) ==
LOC: US 08:49
PROVIDERS: PCP Family Medicine; Referring Provider Urology; Visit Provider Urology
DX: N30.00 Acute cystitis without hematuria (principal)
CPT/HCPCS: 76770

== ENCOUNTER → 2024-08-01 | Outpatient (CLI) | payer MEDICARE, OTHER, SELFPAY ==
[2024-08-01 12:15] LABS: PSA,Total- Diagnostic 0.21 ng/mL (0.00-4.00)
== END | disposition home or self-care (01) ==
LOC: LAB 10:15
PROVIDERS: PCP Family Medicine; Referring Provider Urology; Visit Provider Urology
DX: C61 Malignant neoplasm of prostate (principal)
CPT/HCPCS: 36415; 84153